=== PATIENT | female | born 1975 | race American Indian/Alaskan Native ===

== ENCOUNTER 2016-12-30 18:01 | Emergency (ER) | payer OTHER ==
[2016-12-30 18:29] VITALS: BMI 26.6
[2016-12-30 18:32] VITALS: TEMP 98.4
--- NOTE | 2016-12-30 19:17 | ED PDOC ---
Arrival/HPI - General Chief Complaint: Abnormal Skin Integrity Time Seen by Provider: 12/30/16 19:03 Historian: Patient - History of Present Illness Narrative History of Present Illness (Text): 12/31/16 00:55 41 yo F presents for a wound check to the right palm, patient states that she sustained a wound to the center of her right palm after her skin became dry, cracked and then opened up. 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 Denies any fever, chills, trauma, injury, numbness, decrease range of motion, has no other complaints. Patient is R hand dominant. Past Medical History - Provider Review Nursing Documentation Reviewed: Yes - Infectious Disease Hx of Infectious Diseases: None - Tetanus Immunization Tetanus Immunization: Up to Date - Cardiac Hx Hypertension: Yes - Gastrointestinal Hx Pancreatitis: Yes (2011) - Psychiatric Hx Substance Use: No Family/Social History - Physician Review Nursing Documentation Reviewed: Yes Family/Social History: No Known Family HX Smoking Status: Light Smoker < 10 Cigarettes Daily Hx Alcohol Use: Yes Hx Substance Use: No Allergies/Home Meds Allergies/Adverse Reactions: Allergies No Known Allergies Allergy (Verified 10/24/16 12:14) Review of Systems - Review of Systems Constitutional: Normal. absent: Fatigue, Weight Change, Fevers Musculoskeletal: Normal. absent: Arthralgias, Back Pain, Neck Pain Skin: Normal, Other (non-healing wound to the R palm). absent: Rash, Pruritis, Skin Lesions Physical Exam - Physical Exam Narrative Physical Exam (Text): 12/31/16 00:57 GENERAL APPEARANCE: Patient is awake, alert, oriented x 3, in no acute distress. SKIN: Warm, (-) rash, (-) lesions. UPPER EXTREMITY: R hand : (+) non-healing wound ~3 cm in size to the center of the palm with (-) tenderness, (-) swelling, (-) ecchymosis, ; (-) crepitus, (-) deformity. Tendon function intact. (-) distal neurovascular deficit. 2 point discrimination. Remainder of hand, digits and wrist: (-) injury. Vital Signs Temp Pulse Resp BP Pulse Ox 12/30/16 19:27 89 17 146/95 H 99 12/30/16 18:02 98.4 F 94 H 16 154/100 H 98 Medical Decision Making ED Course and Treatment: 12/31/16 00:59 41 yo F presents for a wound check to the right palm. Patient advised to keep the wound dry and covered. Given work excuse for 1 day with limited use of the R hand to allow the wound to heal. Patient advised to follow up with primary care physician or employee health in 2 days without fail for re-evaluation. Advised to take medication as prescribed to prevent infection. Return to the emergency room at any time for any new or worsening symptoms. Patient states she fully agrees with and understands discharge instructions. States that she agrees with the plan and disposition. Verbalized and repeated discharge instructions and plan. I have given the patient opportunity to ask any additional questions. - PA / MEDIA OPERATOR / Resident Statement MD/DO has reviewed & agrees with the documentation as recorded. Disposition/Present on Arrival - Present on Arrival Any Indicators Present on Arrival: No History of DVT/PE: No History of Uncontrolled Diabetes: No Urinary Catheter: No History of Decub. Ulcer: No History Surgical Site Infection Following: None - Disposition Have Diagnosis and Disposition been Completed?: Yes Diagnosis: Visit for wound check Disposition: HOME/ ROUTINE Disposition Time: 19:00 Patient Plan: Discharge Condition: STABLE Discharge Instructions (ExitCare): Acute Wound Care (ED) Print Language: SLOVAK Additional Instructions: Thank you for letting us take care of you today. You were treated for wound check to the R hand. The emergency medical care you received today was directed at your acute symptoms. If you were prescribed any medication, please fill it and take as directed. It may take several days for your symptoms to resolve. Return to the Emergency Department if your symptoms worsen, do not improve, or if you have any other problems. Please contact your doctor in 2 days for re-evaluation and follow up. Bring any paperwork you were given at discharge with you along with any medications you are taking to your follow up visit. Our treatment cannot replace ongoing medical care by a primary care provider (PCP) outside of the emergency department. Thank you for allowing the [facility] team to be part of your care today. Prescriptions: Cephalexin [Keflex] 500 mg PO Q6 #28 capsule Clotrimazole 1% Cream [Lotrimin 1%] 30 applic EXT BID #1 tube Sulfamethoxazole/Trimethoprim [Bactrim DS 800 mg-160 mg] 2 tab PO BID #28 tab Forms: [facility] (Malay), WORK NOTE
[2016-12-30 19:27] VITALS: BP 146/95; PULSE 89; RESP 17; O2SAT 99
== END 2016-12-30 19:30 | disposition home or self-care (01) ==
LOC: ED 18:01
DX: Z51.89 Encounter for other specified aftercare (principal)

== ENCOUNTER 2017-07-18 23:32 | Emergency (ER) | payer BC, OTHER ==
[2017-07-18 23:42] VITALS: BMI 26.8
[2017-07-18 23:48] VITALS: PULSE 98; RESP 18; TEMP 99.2; O2SAT 99
[2017-07-18 23:49] VITALS: BP 158/104
--- NOTE | 2017-07-19 00:35 | ED PDOC ---
Arrival/HPI - General Chief Complaint: Lower Extremity Problem/Injury Time Seen by Provider: 07/19/17 00:08 Historian: Patient - History of Present Illness Narrative History of Present Illness (Text): 07/19/17 00:26 Pt is a 41 year old female with no significant past medical history who presents with left lateral heel pain for the past 2 weeks. Pt states that she has been treated by 2 different podiatrists for pes planus and plantar fasciaitis and received a cortisone injection a few months ago. More recently, she was given a Kerasal cream by Dr. Bruce MANZANARES for callused heels which resulted in more irritation than removal of calluses. States she was told she is pre-diabetic but does not take any medications. Denies fever, chills, chest pain, shortness of breath, joint pain or swelling, loss of sensation or motor function of the lower extremity. Next podiatry appointment is July 31. Time/Duration: < week Symptom Onset: Gradual Symptom Course: Unchanged Quality: Aching, Pressure Severity Level: 3 Activities at Onset: Rest Context: Work Past Medical History - Provider Review Nursing Documentation Reviewed: Yes - Travel History Have you recently traveled outside [place] w/in the past 3 mons?: No - Past History Past History: No Previous - Infectious Disease Hx of Infectious Diseases: None - Tetanus Immunization Tetanus Immunization: Up to Date - Cardiac Hx Cardiac Disorders: Yes Hx Hypertension: Yes - Pulmonary Hx Respiratory Disorders: No - Neurological Hx Neurological Disorder: No - HEENT Hx HEENT Disorder: No - Renal Hx Renal Disorder: No - Endocrine/Metabolic Hx Endocrine Disorders: No - Hematological/Oncological Hx Blood Disorders: No - Integumentary Hx Dermatological Disorder: No - Musculoskeletal/Rheumatological Hx Musculoskeletal Disorders: No - Gastrointestinal Hx Gastrointestinal Disorders: Yes Hx Pancreatitis: Yes (2011) - Genitourinary/Gynecological Hx Genitourinary Disorders: No - Psychiatric Hx Psychophysiologic Disorder: No Hx Substance Use: No - Anesthesia Hx Anesthesia: No Family/Social History - Physician Review Nursing Documentation Reviewed: Yes Family/Social History: No Known Family HX Smoking Status: Light Smoker < 10 Cigarettes Daily Hx Alcohol Use: Yes Frequency of alcohol use: Socially Hx Substance Use: No Allergies/Home Meds Allergies/Adverse Reactions: Allergies shellfish derived Allergy (Verified 07/18/17 23:42) SHORTNESS OF BREATH Review of Systems - Physician Review All systems were reviewed & negative as marked: Yes - Review of Systems Constitutional: Fevers Eyes: Normal ENT: Normal Respiratory: Normal Cardiovascular: Normal Gastrointestinal: Normal Genitourinary Female: Normal Musculoskeletal: Normal Skin: Normal, Cellulitis (left callused heel, lateral) Neurological: Normal Endocrine: Normal Hemo/Lymphatic: Normal Psychiatric: Normal Physical Exam Vital Signs Reviewed: Yes Vital Signs Temp Pulse Resp BP Pulse Ox 07/18/17 23:47 99.2 F 98 H 18 158/104 H 99 Temperature: Afebrile Blood Pressure: Hypertensive Pulse: Regular Respiratory Rate: Normal Appearance: Positive for: Well-Appearing, Non-Toxic, Comfortable Pain Distress: Moderate Mental Status: Positive for: Alert and Oriented X 3 - Systems Exam Head: Present: Atraumatic, Normocephalic Mouth: Present: Moist Mucous Membranes Neck: Present: Normal Range of Motion Respiratory/Chest: Present: Clear to Auscultation, Good Air Exchange. No: Respiratory Distress, Accessory Muscle Use Cardiovascular: Present: Regular Rate and Rhythm, Normal S1, S2. No: Murmurs Abdomen: No: Tenderness, Distention, Peritoneal Signs Back: Present: Normal Inspection Upper Extremity: Present: Normal Inspection. No: Cyanosis, Edema Lower Extremity: Present: Normal Inspection, NORMAL PULSES, Normal ROM, Tenderness (lateral left heel pain), Neurovascularly Intact, Capillary Refill < 2 s. No: Edema, CALF TENDERNESS, Cyanosis, Lio's Sign, Erythema, Deformity, Temperature Abnormalties Neurological: Present: GCS=15, CN II-XII Intact, Speech Normal Skin: Present: Warm, Dry, Normal Color. No: Rashes Lymphatic: No: Cervical Adenopathy, Axillary Adenopathy, Inguinal Adenopathy, Other Psychiatric: Present: Alert, Oriented x 3, Normal Insight, Normal Concentration Medical Decision Making ED Course and Treatment: 07/19/17 00:35 Pt is a 41 year old female with no significant past medical history who presents with left lateral heel pain for the past 2 weeks. On exam, lateral heel is mildly erythematous and extremely sensitive to touch, no discharge with a thick callus covering the area, no surrounding edema or erythema. Plan cbc w diff Lidocaine 2% injected into heel I&D of left heel assess and dispo Progress Note pt tolerated the procedure well, no blood loss #11 blade used, 10cc saline irrigation, bacitracin, tegaderm cover and light wrap Advised pt to f/u with podiatry in next 48 hrs or less Clindamycin 300 mg q6 x 7days Ibuprofen 600 mg for pain Note for work VSS and pt ambulated well out of the ED - Lab Interpretations Lab Results: 07/19/17 00:55 Lab Results 07/19/17 00:55: WBC 6.0, RBC 5.32, Hgb 17.6 H, Hct 49.2 H, MCV 92.5, MCH 33.1, MCHC 35.8, RDW 12.7, Plt Count 171, MPV 9.9, Gran % 60.4, Lymph % (Auto) 27.9, [place] % (Auto) 10.9 H, Eos % (Auto) 0.5 L, Baso % (Auto) 0.3, Gran # 3.64, Lymph # (Auto) 1.7, [place] # (Auto) 0.7 H, Eos # (Auto) 0.0, Baso # (Auto) 0.02 I have reviewed the lab results: Yes Interpretation: All labs normal - Medication Orders Current Medication Orders: Discontinued Medications Clindamycin HCl (Cleocin) 150 mg PO STAT STA PRN Reason: Protocol Stop: 07/19/17 01:26 Ketorolac Tromethamine (Toradol) 15 mg IM STAT STA Stop: 07/19/17 00:42 Last Admin: 07/19/17 01:19 Dose: 15 mg MAR Pain Assessment Document 07/19/17 01:19 JOMelanie (Rec: 07/19/17 01:19 JO [id number]) Pain Reassessment Is this a pain reassessment? No Sleep Is patient sleeping during reassessment? No Presence of Pain Presence of Pain Yes Pain Scale Used Pain Scale Used Numeric Location Left, Right or Bilateral Left Pain Location Body Site Foot Description Intensity of Pain at present 6 Pain Behavior Guarding Restlessness Facial Grimacing Aggravating Factors ADL's Walking IM Administration Charges Document 07/19/17 01:19 JOL (Rec: 07/19/17 01:19 JO [id number]) Injection Site MAR Injection Site Left Deltoid Charges for Administration # of IM Administrations 1 - Procedure PROCEDURE NOTE (Text): 07/19/17 02:08 I&D Note Indication: Abscess Location: Left lateral heel pad Preparation: The area was prepped and draped in the usual sterile fashion and was cleansed with chlorhexidine.~ Local infiltration of Lidocaine 2% was used for anesthesia.~ Procedure: ~The most fluctuant portion of the abscess was incised with a #11 scalpel. ~ Approximately 2 mL of thick white matter was obtained.~ The abscess was treated with Bacitracin and light dressing applied. ~ Post-Procedure: ~On exam the abscess is notably less fluctuant and patient able to put weight into the heel again. The patient tolerated the procedure well, and there were no complications. Cultured: Yes Disposition/Present on Arrival - Present on Arrival Any Indicators Present on Arrival: Yes History of DVT/PE: No History of Uncontrolled Diabetes: No Urinary Catheter: No History of Decub. Ulcer: No History Surgical Site Infection Following: None - Disposition Have Diagnosis and Disposition been Completed?: Yes Diagnosis: Abscess, Foot pain, left Disposition: HOME/ ROUTINE Disposition Time: 01:33 Patient Plan: Discharge Condition: GOOD Discharge Instructions (ExitCare): Skin Abscess, Abscess Incision and Drainage (DC) Additional Instructions: Lisset, Please take the medication as directed and follow up with your reworker in the next 24-48 hrs. If you experience a high fever or increase in pain, return to the emergency department for evaluation. All the best in your recovery, [facility] Dejesus Prescriptions: Clindamycin [Cleocin] 300 mg PO Q8 7 Days #21 cap Ibuprofen [Motrin Tab] 600 mg PO Q6 PRN 5 Days #20 tab PRN Reason: pain/fever Forms: [facility] (Persian), WORK NOTE
[2017-07-19 01:14] LABS: BASO # 0.02 K/mm3 (0.0-2.0); BASO % 0.3 % (0.0-3.0); EOS % 0.5 % (1.5-5.0); GRAN # 3.64 (1.4-6.5); GRAN % 60.4 % (50.0-68.0); HEMOGLOBIN 17.6 g/dL (12.0-16.0); LYMPH # 1.7 (1.2-3.4); LYMPH % 27.9 % (22.0-35.0); MEAN CELL VOLUME 92.5 fl (80.0-105.0); MEAN CORPUSCULAR HEMOGLOBIN 33.1 pg (25.0-35.0); MEAN CORPUSCULAR HGB CONC 35.8 g/dl (31.0-37.0); MEAN PLATELET VOLUME 9.9 fl (7.0-11.0); MONO # 0.7 (0.1-0.6); MONO % 10.9 % (1.0-6.0); RBC 5.32 10^6/uL (3.5-6.1); RED CELL DISTRIBUTION WIDTH 12.7 % (11.5-14.5)
[2017-07-19] MEDS ORDERED: Bacitracin 500 Units/gm Oint Foilpak UD ONE (01:14)
== END 2017-07-19 01:53 | disposition home or self-care (01) ==
LOC: ED 23:32
DX: M79.672 Pain in left foot (principal); L02.612 Cutaneous abscess of left foot; I10 Essential (primary) hypertension; F17.210 Nicotine dependence, cigarettes, uncomplicated
CPT/HCPCS: 10060; 85025; 87070; 87181; 96372; 99284; J1885

== ENCOUNTER 2017-10-10 06:15 | Inpatient (IN) | payer OTHER ==
[2017-10-10] MEDS ORDERED: Lidocaine 2% Inj (20ml) ONE (06:55)
[2017-10-10] MEDS ORDERED: Nitroglycerin 50mg in D5W 50 MG/250 ML BOTTLE IV ONE (06:55)
[2017-10-10] MEDS ORDERED: Iodixanol 320 MG/ML 200 ML BOTTLE IV ONE (06:55)
[2017-10-10 06:57] VITALS: O2SAT 99
[2017-10-10] MEDS ORDERED: Iodixanol 320 MG/ML 100 ML BOTTLE IV ONE ×2 (06:58→07:40)
[2017-10-10] MEDS ORDERED: Midazolam 2 MG/2 ML VIAL ONE (07:42)
[2017-10-10] MEDS ORDERED: Propofol 10 mg/ml Inj (20 ML) ONE (07:42)
[2017-10-10] MEDS ORDERED: DiphenhydrAMINE 50 mg/ml Inj ONE (08:33)
[2017-10-10] MEDS ORDERED: Phenylephrine 10 mg/ml Inj ONE (08:54)
[2017-10-10] MEDS ORDERED: Morphine 2 mg/ml ISec IVP PRN (10:31)
--- NOTE | 2017-10-10 10:31 | PCM.SURG1 ---
Surgeon's Initial Post Op Note - Surgeon's Notes Surgeon: Dr. Reymundo Garcia Folded Cloth Taper: Tez PGY1 Type of Anesthesia: General LMA Anesthesia Administered By: Dr. Reid Pre-Operative Diagnosis: Aortoilliac occlusive disease Operative Findings: Aortoilliac occlusive disease Post-Operative Diagnosis: Aortoilliac occlusive disease Operation Performed: EVAR, balloon angioplasty of aorta and illiacs bilaterally Specimen/Specimens Removed: None Estimated Blood Loss: EBL {In ML}: 75 Blood Products Given: N/A Drains Used: No Drains Post-Op Condition: Fair Date of Surgery/Procedure: 10/10/17 Time of Surgery/Procedure: 10:31
[2017-10-10] MEDS ORDERED: HYDROmorphone 0.5 mg/0.5 ml ISec IVP PRN (10:33)
[2017-10-10] MEDS ORDERED: Sodium Chloride 0.9% 1,000 ML IV SCH (10:45)
[2017-10-10] MEDS ORDERED: Sodium Chloride 0.45% 1,000 ML IV SCH (10:45)
[2017-10-10] MEDS ORDERED: Nitroglycerin 2% Ointment Foilpak UD TOP PRN (10:59)
[2017-10-10] MEDS: Sodium Chloride 0.45% 1,000 ML IV SCH (11:45)
--- NOTE | 2017-10-10 11:46 | CP.PCM.CON ---
<James Chatterjee - Last Filed: 10/10/17 12:01> History of Present Illness - History of Present Illness History of Present Illness: ICU Consult Note: Dr. Mejía Reason For Consult: ICU Monitoring post op HPI: 42 year old female with pertinent medical history of HTN and Aorto- occlusive disease initially presented with claudication symptoms. Lower Extremity MRA on last admission revealed bilateral proximal SERGIO, distal L SFA, and distal aortic critical stenosis. Patient was scheduled for same day surgery performed by Dr. Sanches. On my interview, patient is resting in bed with no complaints at current time besides saying that her nasal cannula is bothering her nose. Patient denies any pain at the surgical site. Review of Systems: 12 point ROS obtained and negative except as per HPI Surgical History: Denies Medical History: HTN, Pancreatitis, Aorto-occlusive disease, Chronic foot ulcers Allergies: Latex, shellfish Social History: 1/2 pack cigarettes; 6 pack of beer a day; Past use of marijuana, but denies current use Home Meds: Metformin, Ultram Family History: Aorto-occlusive disease Past Patient History - Infectious Disease Hx of Infectious Diseases: None - Tetanus Immunizations Tetanus Immunization: Up to Date - Past Medical History & Family History Past Medical History?: Yes - Past Social History Smoking Status: Heavy Smoker > 10 Cigarettes Daily - CARDIAC Hx Pacemaker: No - PULMONARY Hx Respiratory Disorders: No - NEUROLOGICAL Hx Paralysis: No - HEENT Hx HEENT Problems: No - RENAL Hx Chronic Kidney Disease: No - ENDOCRINE/METABOLIC Hx Endocrine Disorders: No - HEMATOLOGICAL/ONCOLOGICAL Hx Blood Transfusions: No - INTEGUMENTARY Hx Dermatological Problems: No - MUSCULOSKELETAL/RHEUMATOLOGICAL Hx Musculoskeletal Disorders: No - GASTROINTESTINAL Hx Gastrointestinal Disorders: Yes Hx Pancreatitis: Yes (2011) - GENITOURINARY/GYNECOLOGICAL Hx Genitourinary Disorders: No - PSYCHIATRIC Hx Emotional Abuse: No Hx Physical Abuse: No Hx Substance Use: No - SURGICAL HISTORY Hx Surgeries: No - ANESTHESIA Hx Anesthesia Reactions: No Hx Malignant Hyperthermia: No Meds Allergies/Adverse Reactions: Allergies Allergy/AdvReac Type Severity Reaction Status Date / Time latex Allergy Severe RASH Verified 10/05/17 08:01 shellfish derived Allergy Severe SHORTNESS Verified 10/05/17 08:01 OF BREATH - Medications Medications: Current Medications Apixaban (Eliquis) 5 mg PO BID HECTOR PRN Reason: Protocol Docusate Sodium (Colace) 100 mg PO BID PRN PRN Reason: Constipation Folic Acid (Folic Acid) 1 mg PO DAILY [facility] Hydromorphone HCl (Dilaudid) 0.5 mg IVP Q15M PRN PRN Reason: Pain, moderate (4-7) Stop: 10/10/17 12:33 Sodium Chloride (Sodium Chloride 0.9%) 1,000 mls @ 75 mls/hr IV .[id number] [facility] Stop: 10/10/17 12:46 Sodium Chloride (Sodium Chloride 0.45%) 1,000 mls @ 80 mls/hr IV .[id number] [facility] Stop: 10/11/17 08:00 Insulin Human Lispro (Humalog Low) 0 units SC ACHS HECTOR PRN Reason: Protocol Metformin HCl (Glucophage) 500 mg PO BID [facility] Morphine Sulfate (Morphine) 2 mg IVP Q4H PRN PRN Reason: Pain, severe (8-10) Multivitamins/Minerals (Therapeutic-M Tab) 1 tab PO 0800 [facility] Nitroglycerin (Nitro-Bid 2% Oint) 1 ea TOP Q6H PRN PRN Reason: Systolic Blood Pressure Ondansetron HCl (Zofran Inj) 4 mg IVP Q6H PRN PRN Reason: Nausea/Vomiting Oxycodone/Acetaminophen (Percocet 5/325 Mg Tab) 1 tab PO Q4H PRN PRN Reason: Pain, moderate (4-7) Stop: 10/13/17 10:32 Pantoprazole Sodium (Protonix Ec Tab) 40 mg PO DAILY [facility] Thiamine HCl (Vitamin B1 Tab) 100 mg PO DAILY [facility] Physical Exam - Constitutional Appears: Well - Head Exam Head Exam: ATRAUMATIC, NORMAL INSPECTION, NORMOCEPHALIC - Eye Exam Eye Exam: EOMI, Normal appearance, PERRL Pupil Exam: NORMAL ACCOMODATION, PERRL - ENT Exam ENT Exam: Mucous Membranes Moist, Normal Exam - Neck Exam Neck exam: Positive for: Normal Inspection - Respiratory Exam Respiratory Exam: Clear to Auscultation Bilateral, NORMAL BREATHING PATTERN - Cardiovascular Exam Cardiovascular Exam: REGULAR RHYTHM - GI/Abdominal Exam GI & Abdominal Exam: Normal Bowel Sounds, Soft. absent: Tenderness - Extremities Exam Extremities exam: Positive for: normal inspection - Back Exam Back exam: NORMAL INSPECTION - Neurological Exam Neurological exam: Alert, CN II-XII Intact, Normal Gait, Oriented x3, Reflexes Normal - Psychiatric Exam Psychiatric exam: Normal Affect, Normal Mood - Skin Skin Exam: Dry, Intact, Normal Color, Warm - Additional Findings Additional findings: Wound site is c/d/i Results - Vital Signs Recent Vital Signs: Last Vital Signs Temp 98.0 F 10/10/17 10:30 Pulse 85 10/10/17 10:30 Resp 16 10/10/17 10:30 BP 164/86 H 10/10/17 10:30 Pulse Ox 99 10/10/17 06:25 - Labs Labs: Laboratory Results - last 24 hr 10/10/17 06:54 Blood Type A POSITIVE Antibody Screen Negative BBK History Checked Patient has bt Assessment & Plan - Assessment and Plan (Free Text) Assessment: 42 year old female under ICU management for monitoring s/p Balloon Angioplasty and EVAR of bilateral LE SERGIO HTN Aortic Occlusive Disease/PAD Recurrent Pancreatitis Elevated Hgb Alcohol Abuse Tobacco Abuse Plan Neurological - Neurochecks q4 for recent surgery and alcohol withdrawal; Aspiration, Seizure , CIWA - MVi, Thiamine, Folic acid PO - Maintain normothermia Cardiovascular - S/p surgery, make sure dressings are c/d/i - Maintain MAP > 65 Pulm - Maintain oxygenation > 92% - Patient uncomfortable with NC, can use PRN GI - Protonix PPX - HHD - Maintain Euvolemia - Monitor electrolytes, replete PRN Heme - Outpatient follow up of elevated Hgb - Eliquis tmrw for DVT PPX ID - No current ID issues Endo - RISS + Accuchecks, hold metformin F/u repeat labs post op <Ernst Mejía - Last Filed: 10/10/17 13:15> Meds - Medications Medications: Current Medications Apixaban (Eliquis) 5 mg PO BID [facility] PRN Reason: Protocol Docusate Sodium (Colace) 100 mg PO BID PRN PRN Reason: Constipation Folic Acid (Folic Acid) 1 mg PO DAILY [facility] Sodium Chloride (Sodium Chloride 0.45%) 1,000 mls @ 80 mls/hr IV .[id number] [facility] Stop: 10/11/17 08:00 Insulin Human Lispro (Humalog Low) 0 units SC ACHS HECTOR PRN Reason: Protocol Lorazepam (Ativan) 2 mg IVP Q4H PRN; Protocol PRN Reason: Symptoms of alcohol withdrawl Metformin HCl (Glucophage) 500 mg PO BID [facility] Morphine Sulfate (Morphine) 2 mg IVP Q4H PRN PRN Reason: Pain, severe (8-10) Multivitamins/Minerals (Therapeutic-M Tab) 1 tab PO 0800 [facility] Nitroglycerin (Nitro-Bid 2% Oint) 1 ea TOP Q6H PRN PRN Reason: Systolic Blood Pressure Ondansetron HCl (Zofran Inj) 4 mg IVP Q6H PRN PRN Reason: Nausea/Vomiting Oxycodone/Acetaminophen (Percocet 5/325 Mg Tab) 1 tab PO Q4H PRN PRN Reason: Pain, moderate (4-7) Stop: 10/13/17 10:32 Pantoprazole Sodium (Protonix Ec Tab) 40 mg PO DAILY [facility] Thiamine HCl (Vitamin B1 Tab) 100 mg PO DAILY [facility] Results - Vital Signs Recent Vital Signs: Last Vital Signs Temp 98.0 F 10/10/17 11:15 Pulse 78 10/10/17 11:15 Resp 16 10/10/17 11:15 BP 158/72 H 10/10/17 11:15 Pulse Ox 99 10/10/17 06:25 - Labs Result Diagrams: 10/10/17 12:40 Labs: Laboratory Results - last 24 hr 10/10/17 10/10/17 06:54 12:40 WBC 6.4 RBC 5.26 Hgb 17.4 H Hct 50.7 H MCV 96.4 MCH 33.1 MCHC 34.3 RDW 14.0 Plt Count 105 L MPV 9.9 Gran % 61.2 Lymph % (Auto) 28.2 [place] % (Auto) 9.9 H Eos % (Auto) 0.5 L Baso % (Auto) 0.2 Gran # 3.89 Lymph # (Auto) 1.8 [place] # (Auto) 0.6 Eos # (Auto) 0.0 Baso # (Auto) 0.01 Blood Type A POSITIVE Antibody Screen Negative BBK History Checked Patient has bt Attending/Attestation - Attestation I have personally seen and examined this patient.: Yes I have fully participated in the care of the patient.: Yes I have reviewed all pertinent clinical information: Yes Notes (Text): 10/10/17 13:08 The patient was seen and examined at the bedside. Patient care was discussed with resident Dr.Sen Medical records, lab studies, and imaging were reviewed and management issues were discussed and formulated. Agree with above treatment plans as outlined in 's note with addition of the following: Peripheral arterial disease \ HTN \ DM 2 \ ETOH abuse -hemodynamic monitoring to maintain MAP>65 -o2 supplementation to maintain Spo2>90 Pao2>60; currently comfortable on NC -f\u Bun\Cr and U\o -IR team f\u post-op -PO diet and aspiration precautions -ISS and BGM monitoring -continue Thiamine, folic acid and MVI; monitor for ETOH withdrawal -continue anticoagulation with apixaban and monito for bleed -consider Heme\onc eval for Polycythemia -continue LE pulse \ neuro checks as per protocol -DVT \ PUD prophylaxis CCM time 27min
--- NOTE | 2017-10-10 12:00 | CP.PCM.HP ---
Addendum entered and electronically signed by Alayna Fisher DO 10/10/17 16:27 : increased rate of 1/2 NS fluids as patient appears to have be volume contracted. Kayexelate 30 PO administered for Hyperkalemia. Hydralazine added 10 mg q6h PRN for SBP greater than 160 mmHg. Magnesium low, repleted with 1 g IV. Original Note: <Alayna Fisher - Last Filed: 10/10/17 14:49> History of Present Illness - History of Present Illness History of Present Illness: 42 year old female with a past medical history of untreated hypertension, DM II , alcohol abuse, and tobacco use who presented [place] [facility] elective angioplasty of the . She reports having symptoms of claudication in the bilateral lower extremities for the past ten years. She never sought medical attention until she developed a non-healing ulcer of the left lateral heel. She underwent an MRI of the lower extremities and abdomen with and without contrast that showed severe stenosis of the distal abdominal aorta and bilateral common illiac arteries along with distal left SFA occlusion at the the junction with the popliteal. She saw interventional radiologist Dr. Richie Sanches and underwent EVAR, balloon angioplasty of aorta and illiacs bilaterally. She is unable to quantify the amount time it takes for her to walk before she develops the pain in her legs. She denies any nausea, vomiting, diaphoresis, headache, easy bruising or bleeding. History is significant for untreated DM II, tobacco use with an estimated 20 pack year history, and excessive alcoohol use. PMH: Alcoholic pancreatitis, untreated DM II (she is going to be starting Metformin), alcohol and tobacco abuse. Past Surgical History: Left heel repair Allergies: Latex, seafood, and peanut butter Social History: Works as a Certified Nurse Job Cost Estimator, single, estimated 18 pack year history of smoking, 6 pack of beer a day; denies illicit drug use PMD: Dr. Herbert Present on Admission - Present on Admission Any Indicators Present on Admission: No Review of Systems - Review of Systems All systems: reviewed and no additional remarkable complaints except (as per HPI ) Past Patient History - Infectious Disease Hx of Infectious Diseases: None - Tetanus Immunizations Tetanus Immunization: Up to Date - Past Medical History & Family History Past Medical History?: Yes - Past Social History Smoking Status: Heavy Smoker > 10 Cigarettes Daily - CARDIAC Hx Pacemaker: No - PULMONARY Hx Respiratory Disorders: No - NEUROLOGICAL Hx Paralysis: No - HEENT Hx HEENT Problems: No - RENAL Hx Chronic Kidney Disease: No - ENDOCRINE/METABOLIC Hx Endocrine Disorders: No - HEMATOLOGICAL/ONCOLOGICAL Hx Blood Transfusions: No - INTEGUMENTARY Hx Dermatological Problems: No - MUSCULOSKELETAL/RHEUMATOLOGICAL Hx Musculoskeletal Disorders: No - GASTROINTESTINAL Hx Gastrointestinal Disorders: Yes Hx Pancreatitis: Yes (2011) - GENITOURINARY/GYNECOLOGICAL Hx Genitourinary Disorders: No - PSYCHIATRIC Hx Emotional Abuse: No Hx Physical Abuse: No Hx Substance Use: No - SURGICAL HISTORY Hx Surgeries: No - ANESTHESIA Hx Anesthesia Reactions: No Hx Malignant Hyperthermia: No Meds Home Medications: Home Medication List Medication Instructions Recorded Confirmed Type Apixaban [Eliquis] 5 mg PO BID #60 tablet 10/11/17 Rx Aspirin [Adult Aspirin] 81 mg PO DAILY #30 tablet. 10/11/17 Rx Atorvastatin [Lipitor] 40 mg PO HS #30 tab 10/11/17 Rx Metoprolol Tartrate 25 mg PO BID #60 tablet 10/11/17 Rx oxyCODONE/Acetaminophen [Percocet 1 ea PO Q12H #5 tab 10/11/17 Rx 5/325 mg Tab] Allergies/Adverse Reactions: Allergies Allergy/AdvReac Type Severity Reaction Status Date / Time latex Allergy Severe RASH Verified 10/05/17 08:01 shellfish derived Allergy Severe SHORTNESS Verified 10/05/17 08:01 OF BREATH Physical Exam - Constitutional Appears: Non-toxic, No Acute Distress - Head Exam Head Exam: ATRAUMATIC, NORMOCEPHALIC - Eye Exam Eye Exam: EOMI, Normal appearance - ENT Exam ENT Exam: Mucous Membranes Moist, Normal Oropharynx - Neck Exam Neck exam: Positive for: Normal Inspection - Respiratory Exam Respiratory Exam: Clear to Auscultation Bilateral, NORMAL BREATHING PATTERN. absent: Accessory Muscle Use - Cardiovascular Exam Cardiovascular Exam: RRR, +S1, +S2 - GI/Abdominal Exam GI & Abdominal Exam: Normal Bowel Sounds, Soft. absent: Guarding - Extremities Exam Extremities exam: Positive for: normal inspection. Negative for: calf tenderness Additional comments: dorsalis pedis and posterior tibial pulses graded 2/4 bilaterally - Neurological Exam Neurological exam: Alert, CN II-XII Intact, Oriented x3 - Psychiatric Exam Psychiatric exam: Normal Affect, Normal Mood - Skin Skin Exam: Dry, Intact, Normal Color, Warm Results - Vital Signs Recent Vital Signs: Last Vital Signs Temp 98.0 F 10/10/17 10:30 Pulse 85 10/10/17 10:30 Resp 16 10/10/17 10:30 BP 164/86 H 10/10/17 10:30 Pulse Ox 99 10/10/17 06:25 - Labs Result Diagrams: 10/10/17 12:40 10/10/17 12:40 Labs: Laboratory Results - last 24 hr 10/10/17 06:54 Blood Type A POSITIVE Antibody Screen Negative BBK History Checked Patient has bt Assessment & Plan - Assessment and Plan (Free Text) Assessment: 42 year old female with a past medical history of pancreatitis, untreated DM II , tobacco and alcohol use who is status post EVAR, balloon angioplasty of aorta and illiacs bilaterally. 1) PAD, aortoilliac disease with non-healing ulcer s/p EVAR, baloon angioplasty - Monitor in the ICU per post-angioplasty protocol - Eliquis 5 mg BID - NG ointment q6h PRN - Zofran 4mg q6h PRN - NS at 80 mls/hr - Percocet 5/325 for moderate pain - Morphine 2 mg q4h PRN 2) DM II - Metformin 500 mg BID - ISS lispro (low) ACHS - last hgbA1c was 8.7 3) Alcohol Withdrawal precautions - Alcohol Withdrawal symptoms - Multivitamin, Folic Acid, Thiamine - Lorazepam 2 mg q4h PRN for alcohol withdrawal symptoms - Counselled patient on abstaining from alcohol, will reinforce through-out her stay 4) Smoking cessation - Patient smokes 1/2 pack a day and thus should be kept on a 14 mg patch - Counselled the patient that she can in fact quit: encouraged her to take up walking once she is cleared by Dr. Sanches 5) DVT/GI Prophylaxis - NOAC starting tomorrow in the AM - Protonix 40 mg PO daily Upon discharge patient is to follow up with PMD Dr. Herbert Case reviewed and discussed with attending physician, Dr. Carbajal - Date & Time Date: 10/10/17 Time: 14:32 <Clarence Barry - Last Filed: 10/11/17 15:26> Results - Vital Signs Recent Vital Signs: Last Vital Signs Temp 98.2 F 10/11/17 04:00 Pulse 74 10/11/17 00:00 Resp 12 10/10/17 18:44 BP 173/85 H 10/11/17 00:00 Pulse Ox 99 10/10/17 06:25 - Labs Result Diagrams: 10/11/17 06:50 10/11/17 06:50 Labs: Laboratory Results - last 24 hr 10/10/17 10/10/17 10/10/17 06:30 17:04 19:29 WBC RBC Hgb Hct MCV MCH MCHC RDW Plt Count MPV Gran % Lymph % (Auto) [place] % (Auto) Eos % (Auto) Baso % (Auto) Gran # Lymph # (Auto) [place] # (Auto) Eos # (Auto) Baso # (Auto) PT INR APTT Sodium 135 Potassium 4.0 Chloride 104 Carbon Dioxide 22 Anion Gap 13 BUN 5 L Creatinine 0.7 Est GFR ( Amer) > 60 Est GFR (Non-Af Amer) > 60 POC Glucose (mg/dL) 104 Random Glucose 125 H Calcium 8.2 L Phosphorus Magnesium Total Bilirubin AST ALT Alkaline Phosphatase Total Protein Albumin Globulin Albumin/Globulin Ratio Urine HCG, Qual Negative 10/10/17 10/11/17 10/11/17 21:42 06:50 06:50 WBC 9.2 D RBC 4.88 Hgb 16.2 H Hct 45.7 MCV 93.6 MCH 33.2 MCHC 35.4 RDW 13.6 Plt Count 118 L MPV 9.8 Gran % 83.9 H Lymph % (Auto) 8.9 L [place] % (Auto) 7.1 H Eos % (Auto) 0.0 L Baso % (Auto) 0.1 Gran # 7.75 H Lymph # (Auto) 0.8 L [place] # (Auto) 0.7 H Eos # (Auto) 0.0 Baso # (Auto) 0.01 PT 13.0 H INR 1.13 H APTT 30.5 Sodium Potassium Chloride Carbon Dioxide Anion Gap BUN Creatinine Est GFR ( Amer) Est GFR (Non-Af Amer) POC Glucose (mg/dL) 143 H Random Glucose Calcium Phosphorus Magnesium Total Bilirubin AST ALT Alkaline Phosphatase Total Protein Albumin Globulin Albumin/Globulin Ratio Urine HCG, Qual 10/11/17 10/11/17 06:50 07:43 WBC RBC Hgb Hct MCV MCH MCHC RDW Plt Count MPV Gran % Lymph % (Auto) [place] % (Auto) Eos % (Auto) Baso % (Auto) Gran # Lymph # (Auto) [place] # (Auto) Eos # (Auto) Baso # (Auto) PT INR APTT Sodium 133 Potassium 3.7 Chloride 102 Carbon Dioxide 22 Anion Gap 13 BUN 4 L Creatinine 0.7 Est GFR ( Amer) > 60 Est GFR (Non-Af Amer) > 60 POC Glucose (mg/dL) 107 Random Glucose 114 H Calcium 8.0 L Phosphorus 3.6 Magnesium 1.4 L Total Bilirubin 1.0 AST 41 H ALT 30 Alkaline Phosphatase 74 Total Protein 6.6 Albumin 3.2 Globulin 3.4 Albumin/Globulin Ratio 1.0 L Urine HCG, Qual Attending/Attestation - Attestation I have personally seen and examined this patient.: Yes I have fully participated in the care of the patient.: Yes I have reviewed all pertinent clinical information: Yes Notes (Text): 10/11/17 15:10 Attending note: Patient seen and examined with resident. Patient is a 42 year old female with a past medical history of untreated hypertension, DM II, alcohol abuse, and tobacco use who presented to [facility] an elective percutaneous insertion of aorto iliac prosthesis. Case discussed with Dr. Sanches in detail. Patient is started on aspirin and eliquis. Active smoking; smoking cessation is strongly advised. Active alcohol abuse; alcohol cessation is strongly advised. Repeat lab work. Elevated hemoglobin since 2017. 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 Needs outpatient hematology workup to rule out other causes. Monitor in ICU. Monitor peripheral pulses. Patient also needs outpatient cardiology evaluation. Upon discharge the patient will follow-up with PMD .
[2017-10-10 12:48] LABS: BASO # 0.01 K/mm3 (0.0-2.0); BASO % 0.2 % (0.0-3.0); EOS % 0.5 % (1.5-5.0); GRAN # 3.89 (1.4-6.5); GRAN % 61.2 % (50.0-68.0); HEMOGLOBIN 17.4 g/dL (12.0-16.0); LYMPH # 1.8 (1.2-3.4); LYMPH % 28.2 % (22.0-35.0); MEAN CELL VOLUME 96.4 fl (80.0-105.0); MEAN CORPUSCULAR HEMOGLOBIN 33.1 pg (25.0-35.0); MEAN CORPUSCULAR HGB CONC 34.3 g/dl (31.0-37.0); MEAN PLATELET VOLUME 9.9 fl (7.0-11.0); MONO # 0.6 (0.1-0.6); MONO % 9.9 % (1.0-6.0); RBC 5.26 10^6/uL (3.5-6.1); WHITE BLOOD COUNT 6.4 10^3/ul (4.5-11.0)
[2017-10-10 13:22] LABS: ALBUMIN 3.4 g/dL (3.0-4.8); ALT/SGPT 31 U/L (7-56); AST/SGOT 45 U/L (14-36); BLOOD UREA NITROGEN 4 mg/dL (7-21); CALCIUM 8.2 mg/dL (8.4-10.5); GFR NON-AFRICAN AMERICAN > 60
[2017-10-10] MEDS ORDERED: Sod Polystyrene Sulf 15 gm/60 ml Susp PO ONE (14:24)
[2017-10-10] MEDS: Insulin Lispro (humaLOG) LOW Coverage SC SCH ×3 (15:37→22:00)
[2017-10-10] MEDS ORDERED: Magnesium Sulfate 1 gm in D5W 1 GM/100 ML BAG IVPB ONE (15:38)
--- NOTE | 2017-10-10 17:11 | VASCULAR ---
PROCEDURE: AAA stent graft repair HISTORY: Diffuse calcified infrarenal aortic disease with aneurysmal dilatation and lower extremity ischemia. Abdominal aortic aneurysm. Ischemic fissure left heel. Needs stent graft repair. PHYSICIAN(S): Richie Sanches MD. Raven Dwyer MD TECHNIQUE: he relative risks and indications for the procedure were explained to the patient and informed written consent obtained. The patient was placed supine on the arteriography table and the abdomen and groins prepped and draped in the usual sterile fashion. Induction of general anesthesia was performed. Two perclose devices were pre deployed at the right groin puncture site. The left groin was puncture percutaneously and a 9 Fr. sheath placed. Bilateral 0.035 support wires were placed. The calcified infrarenal disease and aortic bifurcation stenosis was dilated with kissing 7 mm balloons. The 17 [employer] main body sheath was placed on the right. A 9 Chinese 25 cm sheath was placed on the left The 30 mm snare was placed on the left in the abdominal aorta near the renal arteries. A 22 -90 - 16-30 bifurcated main body was placed on the right wire. The contralateral wire was snared from the left. The main body was advanced into the abdominal aorta and the sheath removed. The stent graft was firmly seated on the aortic bifurcation. The graft was deployed without difficulty. Next kissing dilatation of the graft aortic bifurcation was performed with 8 mm balloons. In addition a 14 mm balloon was used to dilate the residual narrowing in the proximal stent graft. Completion angiograms were obtained. The sheaths were removed and hemostasis obtained with the pre deployed Perclose devices. The patient tolerated the procedure well. IMPRESSION: 1) AAA bifurcated stent graft placement as described above
[2017-10-10 19:02] VITALS: RESP 12; BMI 25.2
[2017-10-10] MEDS ORDERED: Pneumococcal 23-Valent Vaccine IM ONE (19:02)
[2017-10-10 19:56] LABS: BLOOD UREA NITROGEN 5 mg/dL (7-21); GFR NON-AFRICAN AMERICAN > 60
[2017-10-10 19:57] LABS: CALCIUM 8.2 mg/dL (8.4-10.5)
--- NOTE | 2017-10-10 21:40 | OP ---
PROCEDURE DATE: 10/10/2017 PREOPERATIVE DIAGNOSIS: Abdominal aortic aneurysm with aortoiliac occlusive disease. POSTOPERATIVE DIAGNOSIS: Abdominal aortic aneurysm with aortoiliac occlusive disease. PROCEDURE: Percutaneous insertion of the Endologix aorto bi-iliac prosthesis, JALIL 22-90/I16-30. SURGEON: Raven Dwyer MD. CO-SURGEON: Dr. Richie Sanches. TYPE OF ANESTHESIA: General. DESCRIPTION OF PROCEDURE: The patient was brought to the cardiac chemical lab supervisor and placed supine on the cardiac cath table. After adequate general anesthesia has been accomplished, her lower abdomen and both groin were prepped with Chloraprep and draped out as a sterile field. The right groin was accessed first under ultrasound guidance using a micropuncture kit. The puncture was performed just cephalad to femoral bifurcation and the micro guidewire was passed into the iliac artery and exchanged for an 0.035 glidewire, 2 Perclose were then deployed at 10:00 p.m. and 02:00 a.m. After that, the guidewire was passed into the thoracic aorta and exchanged with a Lunderquist guidewire. The left side was accessed in a similar fashion and the glidewire was passed into the aortic arch and exchanged with a Lunderquist wire. A 7 [place]uran sheath was passed, a single Perclose was deployed at the site and a #7 [place] sheath was passed into the iliac artery. Using a pigtail catheter that was placed in the suprarenal aorta, aortogram was performed showing the level of the renal artery to be at the L1 in the vertebral space and the aortic bifurcation to be at the L4-L5 intravertebral space. The Endologix LILIANE 22-90/I16-30 AFX2 bifurcated device was loaded onto the Lunderquist wire on the right side and advanced through the 19 F OD AFX introducer sheath until the distal limbs were above the aortic bifurcation. The contralateral wire was snared and pulled down the left leg. The entire system was pulled down on the aortic bifurcation. The main body of the graft was deployed by pulling on the control handle. The contralateral limb was deployed by pulling the yellow limb cover, then advancing a pigtail catheter over the contralateral wire until the tip was in contact with the wire lock. The pigtail catheter was held in place and pulled on the contralateral wire to release it from the wire lock. The ipsilateral limb was deployed by pinning the inner core and retracting the AFX introducer sheath. The graft was then ballooned with 8 x 80 balloon in a kissing fashion, the aortic portion was ballooned by 14 x 40 mm balloon. Completion aortogram showed good result with no hemodynamically significant stenosis throughout the aortic bifurcation. The femoral sheath was removed and the previously deployed Perclose was secured, there was no bleeding. All this was performed with the patient heparinized systemically. There is no groin bleeding and there were palpable femoral pulses bilaterally. There were Doppler signal in both feet. The patient was extubated and brought to the Recovery Room in stable condition. Raven Dwyer MD MTDD
[2017-10-10] MEDS: Oxycodone/Acetaminophen 5/325 mg Tab PO PRN (21:58)
--- NOTE | 2017-10-10 22:44 | CARD ---
APPROVED REPORT EKG Measurement Heart [id number] <Conclusion> Normal sinus rhythm Normal ECG
[2017-10-11 00:46] VITALS: BP 173/85
[2017-10-11 06:13] VITALS: TEMP 98.2
[2017-10-11 07:10] LABS: BASO # 0.01 K/mm3 (0.0-2.0); BASO % 0.1 % (0.0-3.0); GRAN # 7.75 (1.4-6.5); GRAN % 83.9 % (50.0-68.0); HEMOGLOBIN 16.2 g/dL (12.0-16.0); LYMPH # 0.8 (1.2-3.4); LYMPH % 8.9 % (22.0-35.0); MEAN CELL VOLUME 93.6 fl (80.0-105.0); MEAN CORPUSCULAR HEMOGLOBIN 33.2 pg (25.0-35.0); MEAN CORPUSCULAR HGB CONC 35.4 g/dl (31.0-37.0); MEAN PLATELET VOLUME 9.8 fl (7.0-11.0); MONO # 0.7 (0.1-0.6); MONO % 7.1 % (1.0-6.0); RBC 4.88 10^6/uL (3.5-6.1); RED CELL DISTRIBUTION WIDTH 13.6 % (11.5-14.5); WHITE BLOOD COUNT 9.2 10^3/ul (4.5-11.0)
[2017-10-11] MEDS: Sodium Chloride 0.45% 1,000 ML IV SCH (07:27)
[2017-10-11 07:31] LABS: ALBUMIN 3.2 g/dL (3.0-4.8); ALT/SGPT 30 U/L (7-56); AST/SGOT 41 U/L (14-36); BLOOD UREA NITROGEN 4 mg/dL (7-21); GFR NON-AFRICAN AMERICAN > 60
[2017-10-11 07:35] LABS: INR 1.13 (0.93-1.08); PARTIAL THROMBOPLASTIN TIME 30.5 Seconds (25.1-36.5)
[2017-10-11] MEDS: Oxycodone/Acetaminophen 5/325 mg Tab PO PRN (07:54)
[2017-10-11] MEDS ORDERED: Multivitamin With Minerals Tab PO SCH (08:00)
[2017-10-11] MEDS ORDERED: Potassium Chloride 20 mEq/15 ml LIQ UD PO STA (08:23)
[2017-10-11] MEDS ORDERED: Magnesium Sulfate 2 gm/50 ml 2 GM/50 ML BAG IVPB ONE (08:23)
[2017-10-11] MEDS: Insulin Lispro (humaLOG) LOW Coverage SC SCH (08:51)
[2017-10-11] MEDS ORDERED: Pantoprazole 40 mg EC Tab PO SCH (10:00)
[2017-10-11] MEDS ORDERED: Magnesium Oxide 400 mg Tab UD PO SCH (10:00)
--- NOTE | 2017-10-11 12:06 | CP.PCM.DIS ---
<Alayna Fisher - Last Filed: 10/11/17 13:56> Provider - Provider Date of Admission: 10/10/17 11:32 Attending physician: Clarence Barry MD Primary care physician: Maria Elena Herbert MD Consults: Dr Richie ROBERT Time Spent in preparation of Discharge (in minutes): 35 Diagnosis - Discharge Diagnosis (1) Peripheral arterial occlusive disease Status: Acute Priority: High Hospital Course - Lab Results Lab Results: Most Recent Lab Values WBC 9.2 10^3/ul (4.5-11.0) D 10/11/17 06:50 RBC 4.88 10^6/uL (3.5-6.1) 10/11/17 06:50 Hgb 16.2 g/dL (12.0-16.0) H 10/11/17 06:50 Hct 45.7 % (36.0-48.0) 10/11/17 06:50 MCV 93.6 fl (80.0-105.0) 10/11/17 06:50 MCH 33.2 pg (25.0-35.0) 10/11/17 06:50 MCHC 35.4 g/dl (31.0-37.0) 10/11/17 06:50 RDW 13.6 % (11.5-14.5) 10/11/17 06:50 Plt Count 118 10^3/uL (120.0-450.0) L 10/11/17 06:50 MPV 9.8 fl (7.0-11.0) 10/11/17 06:50 Gran % 83.9 % (50.0-68.0) H 10/11/17 06:50 Lymph % (Auto) 8.9 % (22.0-35.0) L 10/11/17 06:50 Wetzel % (Auto) 7.1 % (1.0-6.0) H 10/11/17 06:50 Eos % (Auto) 0.0 % (1.5-5.0) L 10/11/17 06:50 Baso % (Auto) 0.1 % (0.0-3.0) 10/11/17 06:50 Gran # 7.75 (1.4-6.5) H 10/11/17 06:50 Lymph # (Auto) 0.8 (1.2-3.4) L 10/11/17 06:50 Wetzel # (Auto) 0.7 (0.1-0.6) H 10/11/17 06:50 Eos # (Auto) 0.0 (0.0-0.7) 10/11/17 06:50 Baso # (Auto) 0.01 K/mm3 (0.0-2.0) 10/11/17 06:50 PT 13.0 SECONDS (9.4-12.5) H 10/11/17 06:50 INR 1.13 (0.93-1.08) H 10/11/17 06:50 APTT 30.5 Seconds (25.1-36.5) 10/11/17 06:50 Sodium 133 mmol/L (132-148) 10/11/17 06:50 Potassium 3.7 mmol/L (3.6-5.0) 10/11/17 06:50 Chloride 102 mmol/L (98-107) 10/11/17 06:50 Carbon Dioxide 22 mmol/L (21-33) 10/11/17 06:50 Anion Gap 13 (10-20) 10/11/17 06:50 BUN 4 mg/dL (7-21) L 10/11/17 06:50 Creatinine 0.7 mg/dl (0.7-1.2) 10/11/17 06:50 Est GFR ( Amer) > 60 10/11/17 06:50 Est GFR (Non-Af Amer) > 60 10/11/17 06:50 POC Glucose (mg/dL) 107 mg/dL (65-110) 10/11/17 07:43 Random Glucose 114 mg/dL (70-110) H 10/11/17 06:50 Calcium 8.0 mg/dL (8.4-10.5) L 10/11/17 06:50 Phosphorus 3.6 mg/dL (2.5-4.5) 10/11/17 06:50 Magnesium 1.4 mg/dL (1.7-2.2) L 10/11/17 06:50 Total Bilirubin 1.0 mg/dL (0.2-1.3) 10/11/17 06:50 AST 41 U/L (14-36) H 10/11/17 06:50 ALT 30 U/L (7-56) 10/11/17 06:50 Alkaline Phosphatase 74 U/L (38-126) 10/11/17 06:50 Total Protein 6.6 g/dL (5.8-8.3) 10/11/17 06:50 Albumin 3.2 g/dL (3.0-4.8) 10/11/17 06:50 Globulin 3.4 gm/dL 10/11/17 06:50 Albumin/Globulin Ratio 1.0 (1.1-1.8) L 10/11/17 06:50 Urine HCG, Qual Negative (NEGATIVE) 10/10/17 06:30 Blood Type A POSITIVE 10/10/17 06:54 Antibody Screen Negative 10/10/17 06:54 BBK History Checked Patient has bt 10/10/17 06:54 - Hospital Course Hospital Course: 42 year old female with a past medical history of untreated hypertension, DM II , alcohol abuse, and tobacco use who [place] [facility] of the . She reports having symptoms of claudication in the bilateral lower extremities for the past ten years. She never sought medical attention until she developed a non-healing ulcer of the left lateral heel. She underwent an MRI of the lower extremities and abdomen with and without contrast that showed severe stenosis of the distal abdominal aorta and bilateral common illiac arteries along with distal left SFA occlusion at the the junction with the popliteal. She saw interventional radiologist Dr. Richie Sanches and underwent EVAR, balloon angioplasty of aorta and illiacs bilaterally. She is unable to quantify the amount time it takes for her to walk before she develops the pain in her legs. She denies any nausea, vomiting, diaphoresis, headache, easy bruising or bleeding. History is significant for untreated DM II, tobacco use with an estimated 20 pack year history, and excessive alcohol use. She was monitored in the ICU overnight. She was monitored for alcohol withdrawal with the CIWA protocol. Physical therapy cleared the patient was discharge today. She was discharged with the below written instructions and recommendations. Of note, given the patients age under 45, complaint of acral paresthesias, elevated Hgb/Hct on multiple admission, and thrombosis at such a young age a EPO and JAK2 [id number] to rule out Polycythemia Vera. This test will be followed up on and the patient or PMD will be contacted. - Date & Time of H&P Date of H&P: 10/11/17 Time of H&P: 14:07 Discharge Exam - Head Exam Head Exam: ATRAUMATIC, NORMOCEPHALIC - Eye Exam Eye Exam: EOMI, Normal appearance - ENT Exam ENT Exam: Mucous Membranes Moist, Normal Oropharynx - Neck Exam Neck exam: Normal Inspection - Respiratory Exam Respiratory Exam: Clear to PA & Lateral, NORMAL BREATHING PATTERN. absent: Accessory Muscle Use - Cardiovascular Exam Cardiovascular Exam: RRR, +S1, +S2 - GI/Abdominal Exam GI & Abdominal Exam: Normal Bowel Sounds - Extremities Exam Extremities exam: normal inspection Additional comments: posterior tibial and dorsalis pedis pulses graded 2/4 bilaterally - Neurological Exam Neurological exam: Alert, CN II-XII Intact, Oriented x3 - Psychiatric Exam Psychiatric exam: Normal Affect, Normal Mood - Skin Skin Exam: Dry, Intact, Normal Color, Warm Discharge Plan - Discharge Medications Prescriptions: Apixaban [Eliquis] 5 mg PO BID #60 tablet Aspirin [Adult Aspirin] 81 mg PO DAILY #30 tablet. Atorvastatin [Lipitor] 40 mg PO HS #30 tab Metoprolol Tartrate 25 mg PO BID #60 tablet oxyCODONE/Acetaminophen [Percocet 5/325 mg Tab] 1 ea PO Q12H #5 tab - Follow Up Plan Condition: GOOD Disposition: HOME/ ROUTINE Instructions: Smoking: Not Just Harmful to Your Lungs and Heart, Quitting Smoking, Drugs to Help You Stop Using Tobacco, Pancreatitis (DC) Additional Instructions: 1) Patient to follow up with up with Dr. Herbert in three days. 2) Patient to follow up with Dr. Richie Sanches. 3) Patient to stop smoking. 4) Patient to take any medications as directed, unless otherwise indicated. 5) Patient to follow up with cardiology as an outpatient. 6) Stop alcohol use. 7) follow up with hematology as outpatient. Referrals: Maria Elena Herbert MD [Primary Care Provider] - <Clarence Barry - Last Filed: 10/11/17 15:35> Provider - Provider Date of Admission: 10/10/17 11:32 Attending physician: Clarence Barry MD Primary care physician: Maria Elena Herbert MD Hospital Course - Lab Results Lab Results: Most Recent Lab Values WBC 9.2 10^3/ul (4.5-11.0) D 10/11/17 06:50 RBC 4.88 10^6/uL (3.5-6.1) 10/11/17 06:50 Hgb 16.2 g/dL (12.0-16.0) H 10/11/17 06:50 Hct 45.7 % (36.0-48.0) 10/11/17 06:50 MCV 93.6 fl (80.0-105.0) 10/11/17 06:50 MCH 33.2 pg (25.0-35.0) 10/11/17 06:50 MCHC 35.4 g/dl (31.0-37.0) 10/11/17 06:50 RDW 13.6 % (11.5-14.5) 10/11/17 06:50 Plt Count 118 10^3/uL (120.0-450.0) L 10/11/17 06:50 MPV 9.8 fl (7.0-11.0) 10/11/17 06:50 Gran % 83.9 % (50.0-68.0) H 10/11/17 06:50 Lymph % (Auto) 8.9 % (22.0-35.0) L 10/11/17 06:50 Wetzel % (Auto) 7.1 % (1.0-6.0) H 10/11/17 06:50 Eos % (Auto) 0.0 % (1.5-5.0) L 10/11/17 06:50 Baso % (Auto) 0.1 % (0.0-3.0) 10/11/17 06:50 Gran # 7.75 (1.4-6.5) H 10/11/17 06:50 Lymph # (Auto) 0.8 (1.2-3.4) L 10/11/17 06:50 Wetzel # (Auto) 0.7 (0.1-0.6) H 10/11/17 06:50 Eos # (Auto) 0.0 (0.0-0.7) 10/11/17 06:50 Baso # (Auto) 0.01 K/mm3 (0.0-2.0) 10/11/17 06:50 PT 13.0 SECONDS (9.4-12.5) H 10/11/17 06:50 INR 1.13 (0.93-1.08) H 10/11/17 06:50 APTT 30.5 Seconds (25.1-36.5) 10/11/17 06:50 Sodium 133 mmol/L (132-148) 10/11/17 06:50 Potassium 3.7 mmol/L (3.6-5.0) 10/11/17 06:50 Chloride 102 mmol/L (98-107) 10/11/17 06:50 Carbon Dioxide 22 mmol/L (21-33) 10/11/17 06:50 Anion Gap 13 (10-20) 10/11/17 06:50 BUN 4 mg/dL (7-21) L 10/11/17 06:50 Creatinine 0.7 mg/dl (0.7-1.2) 10/11/17 06:50 Est GFR ( Amer) > 60 10/11/17 06:50 Est GFR (Non-Af Amer) > 60 10/11/17 06:50 POC Glucose (mg/dL) 107 mg/dL (65-110) 10/11/17 07:43 Random Glucose 114 mg/dL (70-110) H 10/11/17 06:50 Calcium 8.0 mg/dL (8.4-10.5) L 10/11/17 06:50 Phosphorus 3.6 mg/dL (2.5-4.5) 10/11/17 06:50 Magnesium 1.4 mg/dL (1.7-2.2) L 10/11/17 06:50 Total Bilirubin 1.0 mg/dL (0.2-1.3) 10/11/17 06:50 AST 41 U/L (14-36) H 10/11/17 06:50 ALT 30 U/L (7-56) 10/11/17 06:50 Alkaline Phosphatase 74 U/L (38-126) 10/11/17 06:50 Total Protein 6.6 g/dL (5.8-8.3) 10/11/17 06:50 Albumin 3.2 g/dL (3.0-4.8) 10/11/17 06:50 Globulin 3.4 gm/dL 10/11/17 06:50 Albumin/Globulin Ratio 1.0 (1.1-1.8) L 10/11/17 06:50 Urine HCG, Qual Negative (NEGATIVE) 10/10/17 06:30 Blood Type A POSITIVE 10/10/17 06:54 Antibody Screen Negative 10/10/17 06:54 BBK History Checked Patient has bt 10/10/17 06:54 Attending/Attestation - Attestation I have personally seen and examined this patient.: Yes I have fully participated in the care of the patient.: Yes I have reviewed all pertinent clinical information, including history, physical exam and plan: Yes Notes (Text): 10/11/17 15:34 Attending note: Patient seen and examined with resident. Patient is a 42 year old female with a past medical history of untreated hypertension, DM II, alcohol abuse, and tobacco use who [place] [facility] elective percutaneous insertion of aorto iliac prosthesis. Pulses present by doppler. Tolerating diet. Ambulating well. Case discussed with Dr. Sanches in detail. Patient can be discharged home today. Patient is started on aspirin, Lipitor and metoprolol and eliquis. Active smoking; smoking cessation is strongly advised. Active alcohol abuse; alcohol cessation is strongly advised. Elevated hemoglobin since 2017. 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 Needs outpatient hematology workup to rule out other causes. Patient also needs outpatient cardiology evaluation. Upon discharge the patient will follow-up with PMD . Patient agreed with the above recommendations.
--- NOTE | 2017-10-11 15:01 | CP.PCM.PN ---
Subjective - Date & Time of Evaluation Date of Evaluation: 10/11/17 Time of Evaluation: 07:20 - Subjective Subjective: Patient seen and examined this AM. Patient had no adverse events overnight, but she reports some lower abdominal pain and intermittent left lower extremity numbness. The numbness has resolved. Patient denies any nausea or vomiting, fevers, chills, or chest pain or weakness Objective - Vital Signs/Intake and Output Vital Signs (last 24 hours): Temp Pulse Resp BP Pulse Ox 98.2 F 74 12 173/85 H 99 10/11/17 04:00 10/11/17 00:00 10/10/17 18:44 10/11/17 00:00 10/10/17 06:25 Intake and Output: 10/11/17 10/11/17 06:59 18:59 Intake Total 1600 Output Total 400 Balance 1200 - Medications Medications: Current Medications Apixaban (Eliquis) 5 mg PO BID [facility] PRN Reason: Protocol Last Admin: 10/11/17 10:27 Dose: 5 mg Docusate Sodium (Colace) 100 mg PO BID PRN PRN Reason: Constipation Folic Acid (Folic Acid) 1 mg PO DAILY [facility] Last Admin: 10/11/17 10:28 Dose: 1 mg Hydralazine HCl (Apresoline) 10 mg IVP Q6 [facility] Last Admin: 10/11/17 00:00 Dose: 10 mg Insulin Human Lispro (Humalog Low) 0 units SC ACHS [facility] PRN Reason: Protocol Last Admin: 10/11/17 08:51 Dose: Not Given Lorazepam (Ativan) 2 mg IVP Q4H PRN; Protocol PRN Reason: Symptoms of alcohol withdrawl Magnesium Oxide (Mag-Ox) 400 mg PO DAILY [facility] Last Admin: 10/11/17 10:29 Dose: 400 mg Morphine Sulfate (Morphine) 2 mg IVP Q4H PRN PRN Reason: Pain, severe (8-10) Last Admin: 10/10/17 20:36 Dose: 2 mg Multivitamins/Minerals (Therapeutic-M Tab) 1 tab PO 0800 [facility] Last Admin: 10/11/17 10:30 Dose: 1 tab Nicotine (Nicoderm Cq) 1 patch TD DAILY [facility] Last Admin: 10/11/17 10:29 Dose: 1 patch Nitroglycerin (Nitro-Bid 2% Oint) 1 ea TOP Q6H PRN PRN Reason: Systolic Blood Pressure Ondansetron HCl (Zofran Inj) 4 mg IVP Q6H PRN PRN Reason: Nausea/Vomiting Last Admin: 10/10/17 22:02 Dose: 4 mg Oxycodone/Acetaminophen (Percocet 5/325 Mg Tab) 1 tab PO Q4H PRN PRN Reason: Pain, moderate (4-7) Stop: 10/13/17 10:32 Last Admin: 10/11/17 07:54 Dose: 1 tab Pantoprazole Sodium (Protonix Ec Tab) 40 mg PO DAILY [facility] Last Admin: 10/11/17 10:30 Dose: 40 mg Thiamine HCl (Vitamin B1 Tab) 100 mg PO DAILY [facility] Last Admin: 10/11/17 10:33 Dose: 100 mg - Labs Labs: 10/11/17 06:50 10/11/17 06:50 PT 13.0 SECONDS (9.4-12.5) H 10/11/17 06:50 INR 1.13 (0.93-1.08) H 10/11/17 06:50 APTT 30.5 Seconds (25.1-36.5) 10/11/17 06:50 - Constitutional Appears: Well, Non-toxic, No Acute Distress - Head Exam Head Exam: ATRAUMATIC, NORMOCEPHALIC - Eye Exam Eye Exam: Normal appearance. absent: Conjunctival injection, Scleral icterus - ENT Exam ENT Exam: Mucous Membranes Moist, Normal Oropharynx - Respiratory Exam Respiratory Exam: NORMAL BREATHING PATTERN. absent: Accessory Muscle Use, Respiratory Distress - Cardiovascular Exam Cardiovascular Exam: RRR - GI/Abdominal Exam GI & Abdominal Exam: Soft, Tenderness (mild suprapubic tenderness). absent: Distended - Extremities Exam Extremities Exam: Tenderness. absent: Calf Tenderness, Pedal Edema Additional comments: minimal tenderness in the groin at the access sites with no surrounding ecchymosis or swelling. BL pedal pulses dopplerable with good signals. Feet are warm and normal color with motor-sensory exams intact - Neurological Exam Neurological Exam: Alert, Awake, Oriented x3 - Psychiatric Exam Psychiatric exam: Normal Affect, Normal Mood - Skin Skin Exam: Dry, Normal Color, Warm Assessment and Plan - Assessment and Plan (Free Text) Assessment: 42F POD#1 s/p EVAR and balloon angioplasty of the aorta and BL iliac arteries Hemodynamically stable, recovering well with no neuromuscular deficits Plan: No further surgical intervention warranted, patient should follow up as an outpatient for post op check PO pain management Blood pressure control Get patient out of bed and ambulating Monitor diet tolerance Discussed with Dr. Reymundo Restrepo, PGY2
[2017-10-11 15:17] VITALS: PULSE 82
[2017-10-16 14:49] LABS: JAK2 V617F NOT DETECTED
== END 2017-10-11 15:23 | disposition home or self-care (01) | DRG 269 ==
LOC: SDS 06:15 → ICU 11:32
PROVIDERS: ADMIT Internal Medicine; ATTEND Internal Medicine
PROC: 04V03D6 (ICD-10-PCS; principal; 2017-10-10)
DX: I70.203 Unspecified atherosclerosis of native arteries of extremities, bilateral legs (principal); F10.239 Alcohol dependence with withdrawal, unspecified; K86.1 Other chronic pancreatitis; Q25.1 Coarctation of aorta; D75.1 Secondary polycythemia; E11.51 Type 2 diabetes mellitus with diabetic peripheral angiopathy without gangrene; F12.90 Cannabis use, unspecified, uncomplicated; F17.210 Nicotine dependence, cigarettes, uncomplicated; I10 Essential (primary) hypertension; I71.4 Abdominal aortic aneurysm, without rupture; Z79.01 Long term (current) use of anticoagulants; Z79.82 Long term (current) use of aspirin; Z79.84 Long term (current) use of oral hypoglycemic drugs; Z79.899 Other long term (current) drug therapy

== ENCOUNTER 2017-11-24 16:33 | Emergency (ER) | payer OTHER ==
[2017-11-24 16:54] VITALS: BMI 22.6
[2017-11-24] MEDS ORDERED: Sodium Chloride 0.9% 1,000 ML IV STA (17:31)
[2017-11-24] MEDS ORDERED: Morphine 2 mg/ml ISec IVP STA (17:35)
--- NOTE | 2017-11-24 17:38 | ED PDOC ---
Arrival/HPI - General Chief Complaint: Abdominal Pain Time Seen by Provider: 11/24/17 16:35 Historian: Patient - History of Present Illness Narrative History of Present Illness (Text): 11/24/17 17:30 This 42 yo female with psh endovar 10.10.17, presents to this ED c/o epigastric pain, nausea, vomiting x 2 hours. Patient also stated right forearm pain, and swelling x 1 week. Patient denies diarrhea, fever, rectal bleeding, or urinary symptoms. Time/Duration: Other (see hpi) Context: Home Past Medical History - Provider Review Nursing Documentation Reviewed: Yes - Past History Past History: No Previous - Infectious Disease Hx of Infectious Diseases: None - Tetanus Immunization Tetanus Immunization: Up to Date - Cardiac Hx Cardiac Disorders: Yes Hx Hypertension: Yes Hx Peripheral Vascular Disease: Yes - Pulmonary Hx Respiratory Disorders: No - Neurological Hx Neurological Disorder: No - HEENT Hx HEENT Disorder: Yes (eyeglasses) - Renal Hx Renal Disorder: No - Endocrine/Metabolic Hx Endocrine Disorders: Yes Other/Comment: borderline diabetic, recently was prescribed metformin 500 mg po bid, 1 wk ago has not started it yet - Hematological/Oncological Hx Blood Disorders: No - Integumentary Hx Dermatological Disorder: Yes Other/Comment: bilateral groin dressings dry and intact, 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, dry skin r ft - Musculoskeletal/Rheumatological Hx Falls: No - Gastrointestinal Hx Gastrointestinal Disorders: Yes (appetite loss and weight loss) Hx Pancreatitis: Yes (2011) Other/Comment: colonoscopy 07/28/17 dx spastic colon, intrnal hemorrhoids, colitis - Genitourinary/Gynecological Hx Genitourinary Disorders: Yes (irregular periods) - Psychiatric Hx Psychophysiologic Disorder: Yes Hx Emotional Abuse: No Hx Physical Abuse: No Hx Substance Use: No Other/Comment: 6 pack beer daily, 1/2 ppd smoker - Surgical History Other/Comment: left heel surgical repair, baloon angioplasty of aortia and iliac bilaterally 10/10/17 in vascular - Anesthesia Hx Anesthesia: Yes Hx Anesthesia Reactions: No Hx Malignant Hyperthermia: No - Suicidal Assessment Feels Threatened In Home Enviroment: No Family/Social History - Physician Review Nursing Documentation Reviewed: Yes Family/Social History: Other Smoking Status: Heavy Smoker > 10 Cigarettes Daily Hx Alcohol Use: Yes (6 pack beer daily) Hx Substance Use: No Allergies/Home Meds Allergies/Adverse Reactions: Allergies latex Allergy (Severe, Verified 11/24/17 16:54) RASH shellfish derived Allergy (Severe, Verified 11/24/17 16:54) SHORTNESS OF BREATH Home Medications: Home Meds Medication Instructions Recorded Confirmed No Known Home Med 11/24/17 11/24/17 Review of Systems - Review of Systems Constitutional: Normal. absent: Fatigue, Weight Change, Fevers Eyes: Normal ENT: Normal Respiratory: Normal Cardiovascular: Normal Gastrointestinal: Abdominal Pain, Nausea, Vomiting. absent: Constipation, Diarrhea Genitourinary Female: Normal. absent: Dysuria, Frequency, Hematuria Musculoskeletal: Other (see hpi) Skin: Normal Neurological: Normal Endocrine: Normal Hemo/Lymphatic: Normal Psychiatric: Normal Physical Exam Vital Signs Temp Pulse Resp BP Pulse Ox 11/24/17 17:40 74 17 152/80 H 99 11/24/17 16:42 98.4 F 77 18 156/86 H 100 Temperature: Afebrile Blood Pressure: Normal Pulse: Regular Respiratory Rate: Normal Appearance: Positive for: Well-Appearing, Non-Toxic, Comfortable Pain Distress: None Mental Status: Positive for: Alert and Oriented X 3 - Systems Exam Head: Present: Atraumatic, Normocephalic Pupils: Present: PERRL Extroacular Muscles: Present: EOMI Conjunctiva: Present: Normal Mouth: Present: Moist Mucous Membranes Neck: Present: Normal Range of Motion Respiratory/Chest: Present: Clear to Auscultation, Good Air Exchange. No: Respiratory Distress, Accessory Muscle Use Cardiovascular: Present: Regular Rate and Rhythm, Normal S1, S2. No: Murmurs Abdomen: Present: Tenderness (Mild epigastric tenderness), Normal Bowel Sounds. No: Distention, Peritoneal Signs, Rebound, Guarding Back: Present: Normal Inspection. No: CVA Tenderness Upper Extremity: Present: Normal Inspection, Normal ROM, NORMAL PULSES, Neurovascularly Intact, Capillary Refill < 2s. No: Cyanosis, Edema, Tenderness , Swelling, Erythema, Temperature Abnormalties Lower Extremity: Present: Normal Inspection, NORMAL PULSES, Normal ROM, Neurovascularly Intact, Capillary Refill < 2 s. No: Edema, CALF TENDERNESS, Cyanosis, Lio's Sign, Tenderness, Swelling, Erythema, Deformity, Temperature Abnormalties Neurological: Present: GCS=15, CN II-XII Intact, Speech Normal, Motor Func Grossly Intact, Normal Sensory Function, Normal Cerebellar Funct, Gait Normal Skin: Present: Warm, Dry, Normal Color. No: Rashes Psychiatric: Present: Alert, Oriented x 3, Normal Insight, Normal Concentration Medical Decision Making ED Course and Treatment: 11/24/17 21:16 I spoke with patient regarding CT scan which shows pancreatitis, fluid collection, and pancreatic neosplasm can not be rule out. Patient understood result. However, patient stated she need to do something important tomorrow morning, and she will not be able to stay in hospital tonight. She wants to sign herself AMA. Patient stated she will follow up with her pmd, and Dr. Richie Sanches. She agreed to return to ED if symptoms returns, and she will follow up and review CT scan result with her doctor. Leaving Against Medical Advice (AMA): This patient is choosing to leave against medical advice. The EP has personally explained to the pt that choosing to do so may result in permanent bodily harm or . The EP discussed at great length that without further evaluation and monitoring there may be unforeseen circumstances and/or deterioration causing permanent bodily harm or as a result of their choice. The pt verbalized these risks back to the physician in laymans terms. The pt is alert, oriented, and shows the mental capacity to make clear decisions regarding the pts health care at this time. The pt continues to wish to leave against medical advice. In light of the pts decision to leave AMA, follow-up has been recommended and the pt is aware of the importance of following up as instructed. The pt has been advised that they should return to the ED immediately if they change their mind at any time, or if the condition begins to change or worsen in any way. - Lab Interpretations Lab Results: 11/24/17 17:50 11/24/17 19:19 Lab Results 11/24/17 19:19: Sodium 138, Potassium 4.5, Chloride 105, Carbon Dioxide 25, Anion Gap 12, BUN 8, Creatinine 0.9, Est GFR ( Amer) > 60, Est GFR (Non- Af Amer) > 60, Random Glucose 125 H, Calcium 9.3, Magnesium 1.6 L, Total Bilirubin 0.6, AST 23, ALT 28, Alkaline Phosphatase 86, Lactate Dehydrogenase 534, Total Creatine Kinase 40, Troponin I 0.03, NT-Pro-B Natriuret Pep 293, Total Protein 7.8, Albumin 3.8, Globulin 4.0, Albumin/Globulin Ratio 1.0 L, Lipase 78 11/24/17 17:50: Urine Color Dark yellow, Urine Appearance Slight-cloudy, Urine pH 5.5, Ur Specific Roy >= 1.030, Urine Protein 30 H, Urine Glucose (UA) Negative, Urine Ketones Trace H, Urine Blood Trace-lysed H, Urine Nitrate Negative, Urine Bilirubin Small H, Urine Urobilinogen 0.2, Ur Leukocyte Esterase Small H, Urine RBC 0 - 2, Urine WBC 10 - 15, Ur Epithelial Cells 10 - 12, Urine Bacteria Mod, Urine HCG, Qual Negative 11/24/17 17:50: WBC 4.6 D, RBC 5.69, Hgb 18.5 H* D, Hct 53.0 H, MCV 93.1, MCH 32.5, MCHC 34.9, RDW 13.4, Plt Count 132, MPV 10.2, Gran % 64.6, Lymph % (Auto) 25.4, [place] % (Auto) 9.6 H, Eos % (Auto) 0.2 L, Baso % (Auto) 0.2, Gran # 2.94, Lymph # (Auto) 1.2, [place] # (Auto) 0.4, Eos # (Auto) 0.0, Baso # (Auto) 0.01 I have reviewed the lab results: Yes Interpretation: No sign. chg./baseline - RAD Interpretation Narrative RAD Interpretations (Text): 11/24/17 20:51 FINDINGS: Lung bases: Unremarkable. No mass. No consolidation. ABDOMEN: Liver: Unremarkable. No mass. Gallbladder and bile ducts: Unremarkable. No calcified stones. No ductal dilation. Pancreas: There is a loculated fluid attenuation collection in the left upper quadrant. It measures up to 6.9 x 7.5 x 3.3 cm. There is a second adjacent fluid density collection posteriorly image 20, 2.1 cm. There is a fluid attenuation focus at the pancreatic head level measuring up to 2.3 cm in diameter with some mild adjacent soft tissue stranding in the region. No ductal dilation. Spleen: Unremarkable. No splenomegaly. Adrenals: Unremarkable. No mass. Kidneys and ureters: Unremarkable. No solid mass. No hydronephrosis. Stomach and bowel: Unremarkable. No obstruction. No mucosal thickening. PELVIS: Appendix: No findings to suggest acute appendicitis. Bladder: Unremarkable. No mass. Reproductive: Endometrium appears slightly thickened and hyperdense. ABDOMEN and PELVIS: Intraperitoneal space: Unremarkable. No free air. No significant fluid collection. Bones/joints: No acute fracture. No dislocation. Soft tissues: Unremarkable. Vasculature: There are aortoiliac endoluminal stents in place. No abdominal aortic aneurysm. Lymph nodes: Unremarkable. No enlarged lymph nodes. IMPRESSION: Changes of acute pancreatitis. Fluid density collections are likely residual pseudocysts from previous episodes. Cystic pancreatic neoplasm process not excludable Radiology Orders: 11/24/17 17:35 DUPLEX UPPER EXTRM VEIN RIGHT [US] Stat 11/24/17 17:38 ABD & PELVIS IV CONTRAST ONLY [CT] Stat 11/24/17 18:03 CHEST PORTABLE [RAD] Stat - Medication Orders Current Medication Orders: Discontinued Medications Sodium Chloride (Sodium Chloride 0.9%) 1,000 mls @ 1,000 mls/hr IV .Q1H STA Stop: 11/24/17 18:30 Last Admin: 11/24/17 18:03 Dose: 1,000 mls/hr eMAR Start Stop Document 11/24/17 18:03 SF (Rec: 11/24/17 18:03 [id number] Intravenous Solution Start Date 11/24/17 Start Time 18:03 End Date 11/24/17 End time 19:03 Total Infusion Time 60 Morphine Sulfate (Morphine) 2 mg IVP STAT STA Stop: 11/24/17 17:36 Last Admin: 11/24/17 17:51 Dose: 2 mg MAR Pain Assessment Document 11/24/17 17:51 SF (Rec: 11/24/17 17:59 [id number] Pain Reassessment Is this a pain reassessment? No Sleep Is patient sleeping during reassessment? No Presence of Pain Presence of Pain Yes Pain Scale Used Pain Scale Used Numeric Location Pain Location Body Site Abdomen Description Description Constant Intensity of Pain at present 7 IVP Administration Document 11/24/17 17:51 SF (Rec: 11/24/17 17:59 [id number][facility] Charges for Administration # of IVP Administrations 1 Morphine Sulfate (Morphine) 4 mg IVP STAT STA Stop: 11/24/17 20:22 Last Admin: 11/24/17 20:27 Dose: 4 mg MAR Pain Assessment Document 11/24/17 20:27 IT (Rec: 11/24/17 20:27 IT [id number]) Pain Reassessment Is this a pain reassessment? No Sleep Is patient sleeping during reassessment? No Presence of Pain Presence of Pain Yes Pain Scale Used Pain Scale Used Numeric Location Left, Right or Bilateral Bilateral Pain Location Body Site Abdomen Description Description Constant Pain Behavior Moaning IVP Administration Document 11/24/17 20:27 IT (Rec: 11/24/17 20:27 IT [id number]) Charges for Administration # of IVP Administrations 1 Ondansetron HCl (Zofran Inj) 4 mg IVP STAT STA Stop: 11/24/17 17:32 Last Admin: 11/24/17 17:45 Dose: 4 mg IVP Administration Document 11/24/17 17:45 SF (Rec: 11/24/17 17:45 SF [id number]) Charges for Administration # of IVP Administrations 1 Ondansetron HCl (Zofran Inj) 4 mg IVP STAT STA Stop: 11/24/17 20:17 Last Admin: 11/24/17 20:27 Dose: 4 mg IVP Administration Document 11/24/17 20:27 IT (Rec: 11/24/17 20:27 IT [id number]) Charges for Administration # of IVP Administrations 1 Pantoprazole Sodium (Protonix Inj) 40 mg IVP STAT STA Stop: 11/24/17 17:32 Last Admin: 11/24/17 17:45 Dose: 40 mg IVP Administration Document 11/24/17 17:45 SF (Rec: 11/24/17 17:46 SF [id number]) Charges for Administration # of IVP Administrations 1 Disposition/Present on Arrival - Present on Arrival Any Indicators Present on Arrival: No History of DVT/PE: No History of Uncontrolled Diabetes: No Urinary Catheter: No History of Decub. Ulcer: No History Surgical Site Infection Following: None - Disposition Have Diagnosis and Disposition been Completed?: Yes Diagnosis: Pancreatitis, Abnormal CT scan Disposition: AGAINST MEDICAL ADVICE Disposition Time: 21:21 Condition: UNKNOWN Additional Instructions: You need to see your doctor in 1-2 days. Liquid diet. Review urine culture with your doctor in 2-3 days. Remember to see your doctor regarding the following CT scan result: IMPRESSION: Changes of acute pancreatitis. Fluid density collections are likely residual pseudocysts from previous episodes. Cystic pancreatic neoplasm process not excludable. Return to emergency at anytime for worsening symptoms. Referrals: Maria Elena Herbert MD [Primary Care Provider] - Follow up with primary Forms: [employer] ([place])
[2017-11-24 18:16] VITALS: RESP 17
[2017-11-24 18:24] LABS: BASO # 0.01 K/mm3 (0.0-2.0); BASO % 0.2 % (0.0-3.0); EOS % 0.2 % (1.5-5.0); GRAN # 2.94 (1.4-6.5); GRAN % 64.6 % (50.0-68.0); LYMPH # 1.2 (1.2-3.4); LYMPH % 25.4 % (22.0-35.0); MEAN CELL VOLUME 93.1 fl (80.0-105.0); MEAN CORPUSCULAR HEMOGLOBIN 32.5 pg (25.0-35.0); MEAN CORPUSCULAR HGB CONC 34.9 g/dl (31.0-37.0); MEAN PLATELET VOLUME 10.2 fl (7.0-11.0); MONO # 0.4 (0.1-0.6); MONO % 9.6 % (1.0-6.0); RBC 5.69 10^6/uL (3.5-6.1); RED CELL DISTRIBUTION WIDTH 13.4 % (11.5-14.5); WHITE BLOOD COUNT 4.6 10^3/ul (4.5-11.0)
[2017-11-24 18:28] LABS: PH,URINE 5.5 (4.7-8.0); URINE BILIRUBIN SMALL (NEGATIVE); URINE BLOOD TRACE-LYSED (NEGATIVE); URINE GLUCOSE (UA) NEGATIVE (NEGATIVE); URINE LEUKOCYTE ESTERASE SMALL Leu/uL (NEGATIVE); URINE PROTEIN 30 mg/dL (<30 mg/dL); URINE UROBILINOGEN 0.2 E.U./dL (<1 E.U./dL)
[2017-11-24 18:30] LABS: URINE APPEARANCE SLIGHT-CLOUDY (CLEAR); URINE COLOR DARK YELLOW (YELLOW)
[2017-11-24 18:31] LABS: HCG,QUALITATIVE URINE NEGATIVE (NEGATIVE)
[2017-11-24 18:34] LABS: HEMOGLOBIN 18.5 g/dL (12.0-16.0)
[2017-11-24 18:37] LABS: URINE BACTERIA MOD (NEG); URINE RBC 0 - 2 /hpf (0-2)
[2017-11-24 19:36] LABS: ALBUMIN 3.8 g/dL (3.0-4.8); ALT/SGPT 28 U/L (7-56); AST/SGOT 23 U/L (14-36); BLOOD UREA NITROGEN 8 mg/dL (7-21); CALCIUM 9.3 mg/dL (8.4-10.5); GFR AFRICAN-AMERICAN > 60; GFR NON-AFRICAN AMERICAN > 60; LIPASE 78 U/L (23-300)
[2017-11-24 19:47] LABS: B-TYPE NATRIURETIC PEPTIDE 293 pg/mL (0-450); TROPONIN I 0.03 ng/mL
[2017-11-24] MEDS ORDERED: Iohexol 350 MG/100 ML VIAL ONE (19:59)
[2017-11-24] MEDS ORDERED: HYDROmorphone 1 mg/ml ISec IVP STA (20:15)
[2017-11-24] MEDS ORDERED: Morphine 4 mg/ml ISec IVP STA (20:21)
[2017-11-24 21:47] VITALS: BP 151/85; PULSE 72; TEMP 98.2; O2SAT 100
--- NOTE | 2017-11-25 08:54 | CARD ---
APPROVED REPORT Date of service: 11/24/2017 EKG Measurement Heart [id number] <Conclusion> Normal sinus rhythm Possible Left atrial enlargement Borderline ECG
--- NOTE | 2017-11-25 12:09 | CT ---
Date of service: 11/24/2017 PROCEDURE: CT Abdomen and Pelvis with contrast HISTORY: abdominal pain COMPARISON: None. TECHNIQUE: Contiguous helical/ transaxial sections of the abdomen and pelvis performed following intravenous injection of contrast material. Additional 2D sagittal and coronal reformats provided. Contrast dose: 100 cc Visipaque 350 Radiation dose: Total exam DLP = 242.82 mGy-cm. This CT exam was performed using one or more of the following dose reduction techniques: Automated exposure control, adjustment of the mA and/or kV according to patient size, and/or use of iterative reconstruction technique. FINDINGS: LOWER THORAX: Mild passive atelectasis both posterior lower lung ugalde. LIVER: Liver enlarged measuring approximately 21.5 cm in CC dimension. No obvious hepatic mass or collection. Portal and splenic veins are opacified. GALLBLADDER AND BILE DUCTS: Gallbladder is physiologically distended. No evidence of intraluminal gallbladder calculi. PANCREAS: There is a rounded approximately 2.5 x 2.5 cm fluid collection in the pancreatic head. In addition, there is a large loculated somewhat triangular-shaped fluid collection the region the pancreatic tail that measures approximately 7.9 x 5.6 cm with an adjacent on smaller loculated collection measuring approximately the 2.35 x 1.9 cm. Findings are consistent with pancreatic pseudocyst formation likely related to prior bouts of acute pancreatitis. Note that the possibility of a cystic pancreatic neoplasm not completely excluded. There are also mild infiltration changes are also not seen about the pancreatic head and body consistent with acute pancreatitis as well. The the SPLEEN: Unremarkable. ADRENALS: There are no adrenal lesions. KIDNEYS AND URETERS: Kidneys demonstrate symmetric nephrograms. No evidence of nephrolithiasis or hydronephrosis. VASCULATURE: In situ endovascular stent grafts seen extending from the infrarenal abdominal aorta inferiorly in to both iliac arteries. BOWEL: Evaluation of the bowel is limited due to the lack of oral contrast material. The stomach is incompletely distended with air and some residual food debris/ liquid. Visualized loops of small bowel exhibit normal contour and caliber. No evidence of acute mechanical small bowel obstruction. The most of the large bowel is collapsed which presumably in part accounts for thick-walled appearance. Peristalsis and unopacified stool may contribute. APPENDIX: Normal-appearing appendix of best seen on axial image number [id number]. No evidence to suggest acute appendicitis. PERITONEUM: Unremarkable. No free fluid. No free air. LYMPH NODES: Unremarkable. No enlarged lymph nodes. BLADDER: Urinary in part accounts for thick-walled appearance however correlation with urinalysis recommended to exclude cystitis. Bladder incompletely distended which REPRODUCTIVE: Unremarkable. BONES: No acute fracture. OTHER FINDINGS: None. IMPRESSION: Findings consistent with acute pancreatitis with us on several on pancreatic pseudocyst consistent with sequela of prior bouts of pancreatitis. Note however the possibility of cystic pancreatic neoplasms not completely excluded. Hepatomegaly. See above discussion for additional details findings and recommendations. The U[facility]
--- NOTE | 2017-11-25 12:50 | RAD ---
Date of service: 11/24/2017 HISTORY: epigastric pain COMPARISON: No comparison chest dated 10/05/2017 FINDINGS: LUNGS: Minor bibasilar atelectasis PLEURA: No significant pleural effusion identified, no pneumothorax apparent. CARDIOVASCULAR: Normal. OSSEOUS STRUCTURES: No significant abnormalities. VISUALIZED UPPER ABDOMEN: Normal. OTHER FINDINGS: None. IMPRESSION: No minor bibasilar atelectasis
--- NOTE | 2017-11-26 18:52 | US ---
PROCEDURE: Right upper extremity venous US CLINICAL HISTORY: Arm pain and swelling Evaluate for deep venous thrombosis. PHYSICIAN(S): Richie Sanches M.D FINDINGS: The visualized rightinternal jugular vein is small but otherwise normal and compressible. No evidence of obstruction or thrombus is seen. The visualized segments of the right subclavian vein are patent with normal waveforms. No sonographic evidence of obstruction or thrombosis is seen. The visualized deep venous system of the proximal right upper extremity is sonographically normal and compressible. IMPRESSION: 1. No sonographic evidence for deep venous thrombosis in the visualized segments of the right upper extremity.
== END 2017-11-24 21:48 | disposition left against medical advice (07) ==
LOC: ED 16:33
DX: K85.90 Acute pancreatitis without necrosis or infection, unspecified (principal); R93.8 Abnormal findings on diagnostic imaging of other specified body structures; I10 Essential (primary) hypertension; F17.210 Nicotine dependence, cigarettes, uncomplicated
CPT/HCPCS: 71045; 74177; 80053; 81001; 82550; 83615; 83690; 83735; 83880; 84484; 84703; 85025; 87086; 93005; 93971; 96361; 96374; 96375; 96376; 99285; C9113; J2270; J2405; J7030; Q9967

== ENCOUNTER 2018-01-22 15:16 | Inpatient (IN) | payer OTHER ==
--- NOTE | 2018-01-22 16:46 | ED PDOC ---
Arrival/HPI - General Historian: Patient - History of Present Illness Narrative History of Present Illness (Text): Patient is a 42 year old female with a past medical history of PAD (2 stents in Aorta) presenting to the emergency room after receiving a call from her PMD Dr. Burden stating she had a blood clot in her lung and that she should go to the ED immediately. Patient she is feeling well and has no complaints. She had Chest CT W/WO, ECHO and Abd US over the weekend as a continued work-up of patient's history of PAD. Patient had been stating that she was becoming more short of breath on exertion recently. Patient is currently resting comfortably without complaints and speaking in full sentences. Denies fevers, chills, nausea, vomiting, diarrhea, constipation, chest pain, SOB, abdominal pain, headaches, vision changes, numbness or tingling. PMD: Jenise Time/Duration: 1-3 hours Symptom Onset: Other (no symptoms) Symptom Course: Unchanged Severity Level: 1 <Jamey Martinez - Last Filed: 01/22/18 19:20> <Сергей Del Rio - Last Filed: 01/22/18 23:43> - General Time Seen by Provider: 01/22/18 15:29 Past Medical History - Provider Review Nursing Documentation Reviewed: Yes - Past History Past History: No Previous - Infectious Disease Hx of Infectious Diseases: None - Tetanus Immunization Tetanus Immunization: Up to Date - Reproductive Menopause: No - Cardiac Hx Cardiac Disorders: Yes Hx Hypertension: Yes Hx Peripheral Vascular Disease: Yes - Pulmonary Hx Respiratory Disorders: No - Neurological Hx Neurological Disorder: No - HEENT Hx HEENT Disorder: Yes (eyeglasses) - Renal Hx Renal Disorder: No - Endocrine/Metabolic Hx Endocrine Disorders: Yes Other/Comment: borderline diabetic, recently was prescribed metformin 500 mg po bid, 1 wk ago has not started it yet - Hematological/Oncological Hx Blood Disorders: No - Integumentary Hx Dermatological Disorder: Yes Other/Comment: bilateral groin dressings dry and intact, 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 but dry flakey hard skin noted, dry skin r ft - Musculoskeletal/Rheumatological Hx Falls: No - Gastrointestinal Hx Gastrointestinal Disorders: Yes (appetite loss and weight loss) Hx Pancreatitis: Yes (2011) Other/Comment: colonoscopy 07/28/17 dx spastic colon, intrnal hemorrhoids, colitis - Genitourinary/Gynecological Hx Genitourinary Disorders: Yes (irregular periods) - Psychiatric Hx Psychophysiologic Disorder: Yes Hx Emotional Abuse: No Hx Physical Abuse: No Hx Substance Use: No Other/Comment: 6 pack beer daily, 1/2 ppd smoker - Surgical History Other/Comment: left heel surgical repair, baloon angioplasty of aortia and iliac bilaterally 10/10/17 in vascular - Anesthesia Hx Anesthesia: Yes Hx Anesthesia Reactions: No Hx Malignant Hyperthermia: No - Suicidal Assessment Feels Threatened In Home Enviroment: No <Jamey Martinez - Last Filed: 01/22/18 19:20> Family/Social History - Physician Review Nursing Documentation Reviewed: Yes Family/Social History: CVA/TIA (mother ) Smoking Status: Heavy Smoker > 10 Cigarettes Daily Hx Alcohol Use: Yes (6 pack beer daily) Hx Substance Use: No <Jamey Martinez - Last Filed: 01/22/18 19:20> Allergies/Home Meds <Jamey Martinez - Last Filed: 01/22/18 19:20> <Сергей Del Rio - Last Filed: 01/22/18 23:43> Allergies/Adverse Reactions: Allergies latex Allergy (Severe, Verified 11/24/17 16:54) RASH shellfish derived Allergy (Severe, Verified 11/24/17 16:54) SHORTNESS OF BREATH Home Medications: Home Meds Medication Instructions Recorded Confirmed No Known Home Med 11/24/17 01/22/18 Review of Systems - Physician Review All systems were reviewed & negative as marked: Yes - Review of Systems Constitutional: Normal. absent: Fatigue, Fevers Eyes: Normal. absent: Vision Changes ENT: Normal Respiratory: Normal. absent: SOB, Cough, Wheezing Cardiovascular: JASSO. absent: Chest Pain, Palpitations, Syncope Gastrointestinal: Normal. absent: Abdominal Pain, Constipation, Diarrhea, Nausea, Vomiting Musculoskeletal: Normal Skin: Normal Neurological: Normal. absent: Headache, Dizziness Endocrine: Normal Hemo/Lymphatic: Normal. absent: Adenopathy Psychiatric: Normal <Jamey Martinez - Last Filed: 01/22/18 19:20> Physical Exam Vital Signs Reviewed: Yes Vital Signs Temp Pulse Resp BP Pulse Ox 01/22/18 16:30 98.4 F 85 18 150/88 98 01/22/18 16:11 99.3 F 97 H 18 148/100 H 99 Temperature: Afebrile Blood Pressure: Hypertensive Pulse: Regular Respiratory Rate: Normal Appearance: Positive for: Well-Appearing, Non-Toxic, Comfortable Pain Distress: None Mental Status: Positive for: Alert and Oriented X 3 - Systems Exam Head: Present: Atraumatic, Normocephalic Extroacular Muscles: Present: EOMI Conjunctiva: Present: Normal Mouth: Present: Moist Mucous Membranes Nose (External): Present: Atraumatic Nose (Internal): Present: No Active Bleeding, Moist Neck: Present: Normal Range of Motion Respiratory/Chest: Present: Clear to Auscultation, Good Air Exchange. No: Respiratory Distress, Accessory Muscle Use, Wheezes, Rales, Rhonchi, Tachypneic, Tender to Palpation Cardiovascular: Present: Regular Rate and Rhythm, Normal S1, S2. No: Murmurs Abdomen: No: Tenderness, Distention, Peritoneal Signs Upper Extremity: Present: Normal Inspection, NORMAL PULSES. No: Cyanosis, Edema Lower Extremity: Present: Normal Inspection. No: Edema, NORMAL PULSES (no PT on left LE ) Neurological: Present: GCS=15, CN II-XII Intact, Speech Normal Skin: Present: Warm, Dry, Normal Color. No: Rashes Psychiatric: Present: Alert, Oriented x 3, Normal Insight, Normal Concentration <Jamey Martinez - Last Filed: 01/22/18 19:20> Vital Signs Temp Pulse Resp BP Pulse Ox 01/22/18 16:30 98.4 F 85 18 150/88 98 01/22/18 16:11 99.3 F 97 H 18 148/100 H 99 <Сергей Del Rio - Last Filed: 01/22/18 23:43> Medical Decision Making ED Course and Treatment: Patient is a 42 year old female with a past medical history of PAD with stents sent in by her PMD Dr. Burden because of a pulmonary embolism seen on CT over the weekend. Call placed to Dr. Burden who requested CTA - PE protocol and baseline labs Orders placed. CTA re-shows PE Case discussed with Dr. Burden. Patient accepted to his service. Patient started on heparin. - Lab Interpretations I have reviewed the lab results: Yes - RAD Interpretation Narrative RAD Interpretations (Text): 01/22/18 18:55 CTA: Re-identified filling defect consistent with pulmonary embolus identified within the left lower lobe segmental branches. Radiology Orders: 01/22/18 16:42 ANGIO CHEST PE PROTOCOL [CT] Stat Perianesthesia Manager: Radiologist <Jamey Martinez - Last Filed: 01/22/18 19:20> ED Course and Treatment: 1643 We are to re-order pe per Dr. Burden 01/22/18 19:10 PE, Per pt no problem w/ heparin in the past. No GI bleed. No dark or bloody stool. H&H unremarkable. started on heparin. Appreciate consult w/ Dr. Burden: to be admitted to tele under Dr. Hernandez service - Lab Interpretations Lab Results: 01/22/18 17:25 01/22/18 17:25 Lab Results 01/22/18 17:25: Sodium 135, Potassium 4.0, Chloride 105, Carbon Dioxide 24, Anion Gap 10, BUN 9, Creatinine 0.8, Est GFR ( Amer) > 60, Est GFR (Non- Af Amer) > 60, Random Glucose 131 H, Calcium 8.8, Total Bilirubin 0.9, AST 31, ALT 17, Alkaline Phosphatase 80, Total Protein 6.9, Albumin 3.3, Globulin 3.5, Albumin/Globulin Ratio 0.9 L 01/22/18 17:25: PT 12.6 H, INR 1.10, APTT 26.6 01/22/18 17:25: WBC 6.0, RBC 5.54, Hgb 18.0 H, Hct 50.9 H, MCV 91.9, MCH 32.5, MCHC 35.4, RDW 13.7, Plt Count 119 L, MPV 10.4, Gran % 64.7, Lymph % (Auto) 22.5, [place] % (Auto) 11.8 H, Eos % (Auto) 0.8 L, Baso % (Auto) 0.2, Gran # 3.85, Lymph # (Auto) 1.3, [place] # (Auto) 0.7 H, Eos # (Auto) 0.1, Baso # (Auto) 0.01 - RAD Interpretation Radiology Orders: 01/22/18 16:42 ANGIO CHEST PE PROTOCOL [CT] Stat <Сергей Del Rio - Last Filed: 01/22/18 23:43> - PA / BRASS INSTRUMENT REPAIR TECHNICIAN / Resident Statement /DO has examined the patient and agrees with the treatment plan. <Сергей Del Rio - Last Filed: 01/22/18 23:43> Disposition/Present on Arrival - Present on Arrival Any Indicators Present on Arrival: No History of DVT/PE: No History of Uncontrolled Diabetes: No Urinary Catheter: No History of Decub. Ulcer: No History Surgical Site Infection Following: None - Disposition Have Diagnosis and Disposition been Completed?: Yes Disposition Time: 19:23 Patient Plan: Admission <Jamey Martinez - Last Filed: 01/22/18 19:20> - Disposition Have Diagnosis and Disposition been Completed?: Yes <Сергей Del Rio - Last Filed: 01/22/18 23:43> - Disposition Diagnosis: Pulmonary embolism Disposition: HOSPITALIZED Patient Problems: Current Active Problems Problem Status Onset Pulmonary embolism Acute Condition: GUARDED
[2018-01-22 17:44] LABS: ALB/GLOB RATIO 0.9 (1.1-1.8); ALBUMIN 3.3 g/dL (3.0-4.8); BLOOD UREA NITROGEN 9 mg/dL (7-21); CALCIUM 8.8 mg/dL (8.4-10.5); GFR NON-AFRICAN AMERICAN > 60
[2018-01-22 17:50] LABS: ALT/SGPT 17 U/L (7-56); AST/SGOT 31 U/L (14-36)
[2018-01-22 17:58] LABS: BASO # 0.01 K/mm3 (0.0-2.0); BASO % 0.2 % (0.0-3.0); EOS # 0.1 (0.0-0.7); EOS % 0.8 % (1.5-5.0); GRAN # 3.85 (1.4-6.5); GRAN % 64.7 % (50.0-68.0); LYMPH # 1.3 (1.2-3.4); LYMPH % 22.5 % (22.0-35.0); MEAN CELL VOLUME 91.9 fl (80.0-105.0); MEAN CORPUSCULAR HEMOGLOBIN 32.5 pg (25.0-35.0); MEAN CORPUSCULAR HGB CONC 35.4 g/dl (31.0-37.0); MEAN PLATELET VOLUME 10.4 fl (7.0-11.0); MONO # 0.7 (0.1-0.6); MONO % 11.8 % (1.0-6.0); RBC 5.54 10^6/uL (3.5-6.1); RED CELL DISTRIBUTION WIDTH 13.7 % (11.5-14.5)
[2018-01-22 18:01] LABS: INR 1.1; PARTIAL THROMBOPLASTIN TIME 26.6 Seconds (25.1-36.5); PROTHROMBIN TIME 12.6 SECONDS (9.4-12.5)
[2018-01-22] MEDS ORDERED: Iohexol 350 MG/100 ML VIAL ONE (18:07)
--- NOTE | 2018-01-22 18:50 | CT ---
Date of service: 01/22/2018 CTA chest PE protocol Indication: ? PE Technique: Contiguous axial images were obtained through the chest with intravenous contrast enhancement. Sagittal and coronal reconstructions were generated and reviewed. This CT exam was performed using 1 or more of the following dose reduction techniques: Automated exposure control, adjustment of the MAA and/or kV according to patient size, and/or use of iterative reconstruction technique. IV contrast: 100 mL Omnipaque 350 Radiation dose (DLP): 253.74 MGy-cm. Comparison: CT chest without/with contrast performed 01/20/18 Findings: Visualized portions of the inferior thyroid gland appear unremarkable. The mediastinal and hilar vascular structures appear within normal limits. The heart appears within normal limits of size. No central embolus identified. Filling defects within the left lower lobe segmental branches consistent with pulmonary embolus. No focal consolidation. No pleural effusion. No pneumothorax. No suspicious pulmonary nodules measuring greater than 5 mm. Limited visualized portions of the upper abdomen; too small to characterize bilateral renal hypodensities; statistically likely cysts. No acute osseous abnormality is detected. Impression: Re-identified filling defect consistent with pulmonary embolus identified within the left lower lobe segmental branches. Findings discussed with Dr. Del Rio on 01/22/18 at 6:41 p.m.
[2018-01-22] MEDS ORDERED: Ergocalciferol 50,000 Intl Units Cap PO SCH (19:15)
[2018-01-22] MEDS: Heparin25000 units/250ml 1/2NS 25,000 UNITS/250 ML BAG IV PRN (19:23)
[2018-01-22] MEDS ORDERED: Sodium Chloride 0.9% 1,000 ML IV SCH (19:30)
[2018-01-22] MEDS: Levalbuterol 0.63 MG/3 ML Inhal Soln UD IH SCH (22:26)
[2018-01-22] MEDS ORDERED: Multivitamin (MVI) 10 ML, Thiamine 100 MG, Folic Acid 1 MG in Sodium Chloride 0.9% 1,00... IV ONE (22:41)
[2018-01-23] MEDS: Levalbuterol 0.63 MG/3 ML Inhal Soln UD IH SCH ×4 (01:48→20:00)
[2018-01-23 03:15] VITALS: BMI 22.3
[2018-01-23] MEDS: Pantoprazole 40 mg EC Tab PO SCH (05:27)
--- NOTE | 2018-01-23 06:05 | HP ---
HISTORY OF PRESENT ILLNESS: The patient is a 42-year-old female who presented to the emergency room after the patient had a routine CT scan of the chest with contrast showing pulmonary embolism. The patient was sent to the emergency room. Upon further investigation, the patient does complain of increasing shortness of breath. The patient was seen in the office recently for shortness of breath, on and off. Patient has had routine CT chest which shows pulmonary embolism. The patient also complained of left posterior rib cage pain. REVIEW OF SYSTEMS: A 13-system review was done, pertinent positive and negative dictated above. CODE STATUS: Full code. LIVING WILL ADVANCE DIRECTIVE: None. ALLERGIES: ARE TO LATEX, SHELLFISH DERIVATIVE. HEIGHT: 5 feet 6 inches. WEIGHT: 139. BMI: 24. HOME MEDICATIONS: None listed. SOCIAL HISTORY: Positive for daily alcohol use and daily beer drinking. Positive for smoking less than one pack per day for last 30 years. The patient denies any drug use or communicable transmissible disease. FAMILY HISTORY: Positive for hypertension and heart problems. 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 PAST MEDICAL AND SURGICAL HISTORY: History of peripheral vascular disease, history of angioplasty and stent placement, history of weight loss in the recent past and history of anorexia, history of recurrent pancreatitis, history of alcoholic pancreatitis, history of alcohol dependence and nicotine dependence, history of left foot MRSA infection, history of erythrocytosis, history of questionable iron deficiency, history of hypovitaminosis D, history of prediabetes, history of elevated CA 19-9, history of elevated carcinoembryonic antigen, history of bibasilar atelectasis, history of pancreatitis and pancreatic pseudocyst, history of peripheral vascular disease with endovascular stent graft extending from infrarenal abdominal aorta inferiorly to both iliac arteries, history of thickened urinary bladder, history of hepatomegaly, history of severe stenosis at the aortic bifurcation involving distal aorta and common iliac, history of left distal superficial femoral artery occlusion at the junction of the popliteal, history of severe stenosis of the distal aorta and proximal common iliac arteries bilaterally with occlusion of the distal left superficial femoral artery at the junction of the popliteal artery, history of aortoiliac disease, history of left superficial femoral artery, history of gastritis, history of abdominal aortic aneurysm bifurcated stent graft placement, history of noncompliance, history of hypertension, history of alcohol abuse, history of polycythemia, history of treatment with Eliquis which the patient is noncompliant, history of hyperlipidemia which the patient is noncompliant, history of left heel surgery, history of diabetes, history of being treated with Eliquis in 09/1999 which the patient is not taking. The patient was supposed to be on aspirin, Lipitor, metoprolol which the patient stopped. The patient's past medical history is also significant for history of internal and external hemorrhoids, history of colonic spasm, history of descending colon congestive mucosa, history of hiatal hernia, history of duodenopathy, history of duodenal erosion, history of prepyloric gastric erythema and antral erythema. PHYSICAL EXAMINATION: GENERAL: The patient is seen in stretcher #8 in the emergency room. VITAL SIGNS: T-max is 98.4. Telemetry shows sinus rhythm, heart rate 77, 85, 97; blood pressure 148/100, 150/88, 141/ 87; O2 sat 99%-100%. HEENT: Head: Normocephalic, atraumatic. HEENT examination shows pinkish pale conjunctivae. Anicteric sclerae. No oropharyngeal lesion. No neck rigidity. CHEST: Kyphosis. LUNGS: Examination shows positive rhonchi bilaterally, upper lung ugalde and lower lung ugalde. CARDIOVASCULAR: S1, S2, regular rhythm. Questionable soft systolic murmur at left sternal border, left second intercostal space, right second intercostal space. ABDOMEN: Soft. Positive bowel sounds. No hepatosplenomegaly noted. No guarding. No rigidity, no rebound tenderness. GENITALIA: Female. RECTAL: Examination is deferred. EXTREMITIES: Shows no pitting edema, no calf tenderness, no Homans' sign. MUSCULOSKELETAL: Examination shows a body mass index of 22.4. No gross deficit noted. NEUROLOGIC: The patient is alert, awake, oriented x3. Cranial nerves II-XII grossly intact. Gait examination is not tested. PSYCHIATRIC: Examination negative for anxiety and depression. Negative for suicidal and homicidal ideation. Negative for auditory or visual hallucination. DIAGNOSTICS: The patient's diagnostics reviewed. Hemoglobin/hematocrit 18 and 51, platelet 119, manual platelet pending. PT/PTT 12.6/26.6. Chemistry is significant for glucose of 131. Troponin is 0.29 which is indeterminate. The patient was seen in the emergency room. The patient had a CT angio done. The patient was seen by the emergency room by Dr. Del Rio. The patient had a CTA done which shows left lower lobe segmental branches pulmonary embolism. The patient's previous CAT scan from this morning was also reviewed. The patient's echocardiogram done. The patient was seen in the emergency room by the ER physician. The patient was started treatment with IV heparin with bolus and heparin drip was started in the emergency room by the ER physician. The patient was started on IV fluids and the patient was advised to be admitted. IMPRESSION: 1. Symptomatic left lower lobe segmental branch pulmonary embolism. 2. History of hypertension, hyperlipidemia, history of diabetes, history of peripheral vascular disease and aortoiliac disease and status post endovascular stent grafting. 3. History of nicotine and alcohol use and dependence. 4. History of erythrocytosis. 5. History of noncompliance with medication including Eliquis, metoprolol, Lipitor, aspirin, etc. 6. Thrombocytopenia. 7. Hyperglycemia. 8. Indeterminate troponin. PLAN: At this time, the patient's EKG which was ordered in the emergency room is pending. The patient has been ordered urine drug screen. Repeat CMP has been ordered, thyroid profile, hemoglobin A1c, lipid panel, LFTs, magnesium, serial troponin, vitamin D 25-hydroxy, factor V Leiden, antiphospholipid antibody, prothrombin gene analysis, fructosamine, GlycoMark, manual platelet count, CBCs, PT/PTT, platelet count has been ordered. Hematology evaluation ordered. RPR flow cytometry of the blood ordered. Next, the patient is on CIWA protocol with Ativan 1 mg IV every 4 p.r.n., IV fluids, banana bag at 100 mL an hour, clonidine 0.1 mg every 4 p.r.n., Colace 100 mg three times a day, trazodone 50 mg at bedtime p.r.n., Drisdol 50,000 units weekly, folic acid 1 mg daily, Haldol 2 mg IM every 8 hours p.r.n. Heparin drip has been ordered. Librium has been ordered. Librium protocol p.r.n. has been ordered. Nicotine patch has been ordered. Tylenol p.r.n., Xopenex nebulizer, Zofran 4 mg IV every 4. The patient has been ordered chest PT, venous Doppler of the lower extremity, incentive spirometry, oxygen 2 liters. Repeat EKG ordered. Heart-healthy diet, SCDs, LUKE stocking, alcohol withdrawal protocol. Occupational therapy, physical therapy ordered. Beta hCG has been ordered. At present, the patient will be resumed on all her medication as per the last discharge from [facility] ([facility] The patient will be resumed on Lipitor 40 mg p.o. daily. The patient's Eliquis will be resumed after patient is seen and evaluated by Hematology/Oncology. The patient's beta melissa at this time will be held because of active nicotine addiction and dependence. The patient's echocardiogram results will be reviewed when available. The patient's last discharge summary of 10/11/2017 was reviewed. The patient was discharged home on Eliquis 5 mg twice a day, aspirin 81 mg daily, Lipitor 40 mg daily, metoprolol 25 mg twice a day and Percocet which was for a very short duration. The patient will be resumed on aspirin and Lipitor, beta melissa at this time will be held as discussed above. The patient's new oral anticoagulant will be started after evaluation by Hematology/Oncology. At this time, the patient will be continued on IV heparin. The patient will also be started on vitamin D 50,000 units weekly. At present, the patient's overall prognosis is guarded because of the patient's multiple comorbidities and overall complicated medical condition. The patient has been updated about her condition, diagnosis, treatment plan, management plan. The patient was advised and counseled about cessation of smoking and alcohol. Dictated and electronically signed, not read. Baljit Burden MD
[2018-01-23 07:01] LABS: INR 1.1; PARTIAL THROMBOPLASTIN TIME 80.1 Seconds (25.1-36.5); PROTHROMBIN TIME 12.7 SECONDS (9.4-12.5)
[2018-01-23 07:10] LABS: TROPONIN I 0.08 ng/mL
[2018-01-23 07:17] LABS: ALB/GLOB RATIO 0.9 (1.1-1.8); ALBUMIN 3.3 g/dL (3.0-4.8); ALT/SGPT 16 U/L (7-56); AST/SGOT 21 U/L (14-36); BILIRUBIN,DIRECT 0.4 mg/dL (0.0-0.4); BLOOD UREA NITROGEN 11 mg/dL (7-21); CALCIUM 8.6 mg/dL (8.4-10.5); GFR NON-AFRICAN AMERICAN > 60; HDL CHOLESTEROL 41 mg/dL (29-60)
[2018-01-23 07:18] LABS: LDL CHOLESTEROL 50 mg/dL (0-129)
[2018-01-23 07:22] LABS: FREE T4 0.95 ng/dL (0.78-2.19)
[2018-01-23 08:14] LABS: BASO # 0.02 K/mm3 (0.0-2.0); BASO % 0.3 % (0.0-3.0); EOS % 0.3 % (1.5-5.0); GRAN # 4.08 (1.4-6.5); GRAN % 62.8 % (50.0-68.0); HEMOGLOBIN 17.1 g/dL (12.0-16.0); LYMPH # 1.8 (1.2-3.4); LYMPH % 27.5 % (22.0-35.0); MEAN CELL VOLUME 93.8 fl (80.0-105.0); MEAN CORPUSCULAR HEMOGLOBIN 32.3 pg (25.0-35.0); MEAN CORPUSCULAR HGB CONC 34.4 g/dl (31.0-37.0); MEAN PLATELET VOLUME 10.2 fl (7.0-11.0); MONO # 0.6 (0.1-0.6); MONO % 9.1 % (1.0-6.0); RBC 5.3 10^6/uL (3.5-6.1); RED CELL DISTRIBUTION WIDTH 13.5 % (11.5-14.5); WHITE BLOOD COUNT 6.5 10^3/ul (4.5-11.0)
--- NOTE | 2018-01-23 08:34 | US ---
HISTORY: Leg pain and swelling. Evaluate for DVT PHYSICIAN(S): Richie Sanches MD. TECHNIQUE: Duplex sonography and color-flow Doppler with graded compression were used to evaluate the deep venous systems of both lower extremities. FINDINGS: The visualized deep venous systems of both lower extremities are sonographically normal and compressible. Normal wave forms and augmentation are seen. There is no sonographic evidence for deep venous thrombosis in the visualized segments of both lower extremities. IMPRESSION: No sonographic evidence for deep venous thrombosis in the visualized segments of both lower extremities.
[2018-01-23] MEDS: Multivitamin With Minerals Tab PO SCH (11:00)
[2018-01-23 11:20] LABS: T4 4.8 ug/dL (5.5-11.0)
[2018-01-23 11:34] LABS: T3 0.9 ng/mL (0.97-1.69)
--- NOTE | 2018-01-23 11:47 | CARD ---
APPROVED REPORT Date of service: 01/23/2018 EKG Measurement Heart [id number] <Conclusion> Normal sinus rhythm Possible Left atrial enlargement Nonspecific T wave abnormality Prolonged QT Abnormal ECG
--- NOTE | 2018-01-23 11:51 | CARD ---
APPROVED REPORT Date of service: 01/22/2018 EKG Measurement Heart [id number] <Conclusion> Normal sinus rhythm Possible Left atrial enlargement Nonspecific T wave abnormality Abnormal ECG
[2018-01-23] MEDS ORDERED: Ceftaroline 600 MG in Sodium Chloride 0.9% 100 ML IVPB SCH (13:15)
--- NOTE | 2018-01-23 13:22 | CP.PCM.PN ---
Subjective - Date & Time of Evaluation Date of Evaluation: 01/23/18 Time of Evaluation: 13:18 - Subjective Subjective: PGY-[address] medicine progress note for Dr Burden No acute events noted overnight. She denied respiratory complaints or chest pain. She was concerned about a right hand wound she's had "for a while" - she saw a summer internship recently and was prescribed cirpo 500mg po bid for 10 days of which she completed 5 days. Otherwise did not offer any complaints. Objective - Vital Signs/Intake and Output Vital Signs (last 24 hours): Temp Pulse Resp BP Pulse Ox 98.3 F 75 18 135/91 H 97 01/23/18 12:00 01/23/18 12:00 01/23/18 12:00 01/23/18 12:00 01/23/18 06:00 Intake and Output: 01/23/18 01/23/18 06:59 18:59 Intake Total 1527 0 Balance 1527 0 - Medications Medications: Current Medications Acetaminophen (Tylenol 650 Mg Supp) 650 mg RC Q6H PRN PRN Reason: TEMP>=99.5F Acetaminophen (Tylenol 325mg Tab) 650 mg PO Q6H PRN PRN Reason: Headache Acetaminophen (Tylenol 650 Mg Supp) 650 mg RC Q6H PRN PRN Reason: Headache Aspirin (Ecotrin) 81 mg PO DAILY [facility] Chlordiazepoxide (Librium) 25 mg PO Q6 [facility]; Taper Stop: 01/26/18 22:44 Last Admin: 01/23/18 11:01 Dose: 25 mg Chlordiazepoxide (Librium) 25 mg PO Q4H PRN PRN Reason: Withdrawl Clonidine HCl (Catapres) 0.1 mg PO Q4H PRN PRN Reason: Symptoms of alcohol withdrawl Docusate Sodium (Colace) 100 mg PO TID [facility] Last Admin: 01/23/18 11:00 Dose: 100 mg Ergocalciferol (Drisdol 50,000 Intl Units Cap) 1 cap PO Q7D [facility] Last Admin: 01/22/18 22:26 Dose: 1 cap Folic Acid (Folic Acid) 1 mg PO DAILY [facility] Last Admin: 01/23/18 11:06 Dose: 1 mg Haloperidol Lactate (Haldol) 2 mg IM Q8H PRN PRN Reason: Agitation Heparin Sodium/Sodium Chloride (Heparin 89963 Units/250ml 1/2 Normal Saline) 25,000 units in 250 mls @ 11.349 mls/hr IV .Q22H2M PRN; Protocol PRN Reason: ADJUST RATE PER PROTOCOL Last Titration: 01/23/18 10:58 Dose: 13 units/kg/hr, 8.196 mls/hr Ceftaroline Fosamil 600 mg/ (Sodium Chloride) 100 mls @ 100 mls/hr IVPB Q12 [facility]; Protocol Stop: 01/24/18 10:59 Levalbuterol HCl (Xopenex) 0.63 mg IH [id number] [facility] Last Admin: 01/23/18 08:12 Dose: 0.63 mg Lorazepam (Ativan) 1 mg IVP Q4H PRN PRN Reason: Symptoms of alcohol withdrawl Multivitamins/Minerals (Therapeutic-M Tab) 1 tab PO DAILY [facility] Last Admin: 01/23/18 11:00 Dose: 1 tab Mupirocin (Bactroban Ointment) 0 gm TOP BID [facility] Nicotine (Nicoderm Cq) 1 patch TD DAILY [facility] Last Admin: 01/23/18 11:02 Dose: 1 patch Ondansetron HCl (Zofran Inj) 4 mg IVP Q4H PRN PRN Reason: Nausea/Vomiting Pantoprazole Sodium (Protonix Ec Tab) 40 mg PO 0600 [facility] Last Admin: 01/23/18 05:27 Dose: 40 mg Thiamine HCl (Vitamin B1 Tab) 100 mg PO DAILY [facility] Last Admin: 01/23/18 11:00 Dose: 100 mg Trazodone HCl (Desyrel) 50 mg PO HS PRN PRN Reason: Insomnia - Labs Labs: 01/23/18 06:00 01/23/18 06:00 PT 12.7 SECONDS (9.4-12.5) H 01/23/18 06:00 INR 1.10 01/23/18 06:00 APTT 82.2 Seconds (25.1-36.5) H 01/23/18 09:45 - Constitutional Appears: Well, Non-toxic, No Acute Distress - Head Exam Head Exam: ATRAUMATIC, NORMAL INSPECTION - Eye Exam Eye Exam: EOMI, Normal appearance, PERRL. absent: Scleral icterus - ENT Exam ENT Exam: Mucous Membranes Moist - Neck Exam Neck Exam: Full ROM, Normal Inspection. absent: Tenderness - Respiratory Exam Respiratory Exam: Clear to Ausculation Bilateral, NORMAL BREATHING PATTERN. absent: Rhonchi, Wheezes, Respiratory Distress - Cardiovascular Exam Cardiovascular Exam: Tachycardia, REGULAR RHYTHM, +S1, +S2. absent: JVD - GI/Abdominal Exam GI & Abdominal Exam: Soft, Normal Bowel Sounds. absent: Distended, Firm, Guarding, Tenderness - Extremities Exam Extremities Exam: Full ROM, Normal Capillary Refill, Normal Inspection. absent: Calf Tenderness, Tenderness - Neurological Exam Neurological Exam: Alert, Awake, Oriented x3 - Skin Skin Exam: Dry, Normal Color, Warm Additional comments: right hand with 1 inch circumscribed lesion crusted over, no pus, non- erythematous, no swelling Assessment and Plan - Assessment and Plan (Free Text) Plan: 42 year old female with peripheral arterial disease (2 stents in aorta), internal hemorrhoids alcohol use disorder and pancreatitis presented to the ED after being sent by her PMD Dr Burden for evidence of PE discovered on her CT Chest: Left Lower Lobe Pulmonary Embolism -echo, pending official report -ekg shows nsr, regular rate, no evidence for right heart strain -LE ultrasound did not show evidence for DVT -CT chest w/ and w/o contrast 01/20 (performed prior to admission): * A nonocclusive embolus can be seen in the left lower lobe pulmonary artery. There are no large central emboli. The lungs are clear with no mass or nodule. -CTA chest 01/22: * Re-identified filling defect consistent with pulmonary embolus identified within the left lower lobe segmental branches. -consult heme/onc Dr Ghosh -f/u factor v leiden, antiphospholipid antibody -heparin drip PE protocol Polycythemia Vera -peripheral blood flow cytometry 01/22: * no immunophenotypic evidence for abnormal myeloid maturation, an increase in blasts, or lymphoproliferative disorder -iron studies indicative of iron deficiency with resulting high erythropoietin Right Hand Lesion -1 inch circumscribed lesion in right palm - no swelling, no redness, no pus -cannot recall how lesion occurred; prior to admission was Rx'd 10 day course of cipro - patient completed 5 days -hx of MRSA in 07/2017 -f/u would culture -treat empirically with teflaro 600mg iv q12h -mupirocin topical to affected area bid -consult infectious disease, Dr Hernandez Alcohol Use Disorder -abdominal ultrasound shows increased echogenecity of the liver otherwise normal findings -librium taper -ciwa, seizure precautions, aspiration precautions -clonidine 0.1mg po q4h for symptoms related to alcohol withdrawal -haldol 2mg im q8h prn for hallucination/agitation -mv, folic acid, thiamine -trazodone 50mg po hs prn for insomnia Pancreatitis, Resolved -Hx of pancreatitis and alcohol use disorder -Lipase and amyalse elevated on admission now normalized Pre-Diabetes -HgbA1c 6.2 -f/u fuctosamine and glycomark -aspirin 81mg po qd for primary prevention Vitamin D Deficiency -Low 25-OH vitamin d -ergocalciferol 50,000IU 1 cap po q7d Low T4 -normal TSH -thyroglobulin antibody negative -f/u T3 Tobacco Abuse -nicotine 21mg/24hr 1 patch td qd PPX -already on heparin drip PE protocol -SCDs -PT/OT -heart healthy diet
--- NOTE | 2018-01-23 15:07 | PN ---
DATE: 01/23/2018 SUBJECTIVE: The patient is seen lying in the bed in room 267, bed 2. The patient is comfortable. The patient denies any bleeding. Overnight events were noted. Telemetry shows sinus rhythm. Overnight nurse's notes were reviewed. No adverse events were noted. PHYSICAL EXAMINATION VITAL SIGNS: T-max 98.4; pulse 74, 75; blood pressure 135/83, 142/79, 141/87; respiration 18-20; O2 sat 97%-98%. HEENT: Normocephalic, atraumatic. Shows pink conjunctivae. Anicteric sclerae. No oropharyngeal lesion. NECK: No neck rigidity. CHEST: Kyphosis. LUNGS: Shows occasional rhonchi in the upper lung ugalde. CARDIOVASCULAR: S1 and S2, regular rhythm. ABDOMEN: Soft. Positive bowel sound. GENITALIA: Female. RECTAL: Deferred. EXTREMITIES: Shows no pitting edema, no calf tenderness, no Homans' sign. NEUROLOGICAL: The patient is alert, awake, oriented x3. Cranial nerves II through XII intact. Gait examination is not tested. VASCULAR: Palpable pulses. Body mass index of 22. DIAGNOSTICS: 01/23/2018, hemoglobin and hematocrit 17.1 and 49.7, platelet 115,000. Monocytes are 9.1. PT and PTT is 12.7, 80, 82. CMP and LFT shows glucose of 121, troponin is 0.08, cholesterol 111, LDL 50, HDL 41, thyroid panel is within normal limit. EKG from today is reviewed. The patient's echocardiogram done as an outpatient on 01/20/2018, the report is still pending. Venous Doppler of the lower extremity was negative. IMPRESSION AND PLAN: 1. Possible and questionable unprovoked symptomatic left lower segmental branches of pulmonary embolism. 2. History of noncompliance. 3. History of hypertension, hyperlipidemia, diabetes. History of peripheral vascular disease and aortoiliac disease status post endovascular stent grafting. 4. Active nicotine and alcohol use and dependence. 5. Erythrocytosis. 6. Thrombocytopenia, etiology undetermined. 7. Transient monocytosis. 8. Hyperglycemia. 9. Indeterminate troponin. 10. Abnormal electrocardiogram. 11. History of pancreatitis. Plan at this time, the patient has been ordered continuation of the IV anticoagulation. The patient was supposed to be on Eliquis upon her last discharge from 09/2017, but the patient did not continue her Eliquis. The patient has been ordered repeat serial labs. Hypercoagulable workup ordered by Hematology. Current consultation; Hematology, Oncology, Cardiology. The patient's RPR is pending. Current medications; the patient is on CIWA protocol. The patient is Colace 100 three times a day, Drisdol 50,000 weekly, Ecotrin 81 mg daily. The patient has been ordered hypercoagulable workup which is pending. The patient is on heparin drip. Librium protocol, CIWA protocol. Nebulizer medication, chest PT and incentive spirometry, heart healthy diet. At present, we are awaiting evaluation by Hematology, Oncology and Cardiology. The patient's further management will be depended upon the patient's clinical condition, hemodynamic status and as per the patient's response to therapeutic intervention, as per the patient's diagnostic test results and as per recommendations by all the above physician involved in the care of the patient. The patient has been updated about her condition, diagnoses, treatment plan, management plan, and all questions concerned answered. Dictated and electronically signed, not read. Baljit Burden MD
--- NOTE | 2018-01-23 15:11 | CP.PCM.CON ---
History of Present Illness - History of Present Illness History of Present Illness: 42 year old female with a history of tobacco abuse, PAD s/p arterial stenting, admitted with pulmonary embolism. The patient notes to some shortness of breath. She had a noncontrast CT chest by her PMD which revealed PE and was instructed to report to the hospital. A CT angio of the chest was consistent with a left lower lobe PE. B/L lower extremitsupplementation. Past medical history: PAD s/p arterial stenting, tobacco abuse Past surgical history: foot surgery Family history: Mother had CVA in her 40s Social history: 6-10 cigarettes daily x 30 years, drinks beer daily, denies illicit drug use. Allergies: Latex, shellfish Review of systems: All remaining review of systems including HEENT, cardiovascular, respiratory, gastrointestinal, genitourinary, musculoskeletal, dermatologic, neurologic, and psychiatric are negative unless mentioned in the HPI. Past Patient History - Infectious Disease Hx of Infectious Diseases: None - Tetanus Immunizations Tetanus Immunization: Up to Date - Past Medical History & Family History Past Medical History?: Yes - Past Social History Smoking Status: Current Some Days Smoker - CARDIAC Hx Cardiac Disorders: Yes (2 stents in Aorta) Hx Hypercholesterolemia: Yes (Hyperlipidemia,) Hx Hypertension: Yes - PULMONARY Hx Respiratory Disorders: No - NEUROLOGICAL Hx Neurological Disorder: No - HEENT Hx HEENT Problems: Yes (eyeglasses) - RENAL Hx Chronic Kidney Disease: No - ENDOCRINE/METABOLIC Hx Diabetes Mellitus Type 2: (Hyperglycemia) - HEMATOLOGICAL/ONCOLOGICAL Hx Blood Disorders: No - INTEGUMENTARY Other/Comment: right hand infection - MUSCULOSKELETAL/RHEUMATOLOGICAL Hx Falls: No - GASTROINTESTINAL Hx Pancreatitis: Yes Hx Ulcer: Yes (left foot ulcer 08/02) Other/Comment: gastritis - GENITOURINARY/GYNECOLOGICAL Hx Genitourinary Disorders: Yes (irregular periods) - PSYCHIATRIC Hx Substance Use: No Other/Comment: etoh- 6 pack of beer daily - SURGICAL HISTORY Other/Comment: left heel surgical repair, baloon angioplasty of aortia and iliac bilaterally 10/10/17 in vascular - ANESTHESIA Hx Anesthesia: Yes Hx Anesthesia Reactions: No Hx Malignant Hyperthermia: No Meds Allergies/Adverse Reactions: Allergies Allergy/AdvReac Type Severity Reaction Status Date / Time latex Allergy Severe RASH Verified 11/24/17 16:54 shellfish derived Allergy Severe SHORTNESS Verified 11/24/17 16:54 OF BREATH - Medications Medications: Current Medications Acetaminophen (Tylenol 650 Mg Supp) 650 mg RC Q6H PRN PRN Reason: TEMP>=99.5F Acetaminophen (Tylenol 325mg Tab) 650 mg PO Q6H PRN PRN Reason: Headache Acetaminophen (Tylenol 650 Mg Supp) 650 mg RC Q6H PRN PRN Reason: Headache Aspirin (Ecotrin) 81 mg PO DAILY [facility] Chlordiazepoxide (Librium) 25 mg PO Q6 [facility]; Taper Stop: 01/26/18 22:44 Last Admin: 01/23/18 11:01 Dose: 25 mg Chlordiazepoxide (Librium) 25 mg PO Q4H PRN PRN Reason: Withdrawl Clonidine HCl (Catapres) 0.1 mg PO Q4H PRN PRN Reason: Symptoms of alcohol withdrawl Docusate Sodium (Colace) 100 mg PO TID [facility] Last Admin: 01/23/18 11:00 Dose: 100 mg Ergocalciferol (Drisdol 50,000 Intl Units Cap) 1 cap PO Q7D [facility] Last Admin: 01/22/18 22:26 Dose: 1 cap Folic Acid (Folic Acid) 1 mg PO DAILY [facility] Last Admin: 01/23/18 11:06 Dose: 1 mg Haloperidol Lactate (Haldol) 2 mg IM Q8H PRN PRN Reason: Agitation Heparin Sodium/Sodium Chloride (Heparin 38060 Units/250ml 1/2 Normal Saline) 25,000 units in 250 mls @ 11.349 mls/hr IV .Q22H2M PRN; Protocol PRN Reason: ADJUST RATE PER PROTOCOL Last Titration: 01/23/18 10:58 Dose: 13 units/kg/hr, 8.196 mls/hr Ceftaroline Fosamil 600 mg/ (Sodium Chloride) 100 mls @ 100 mls/hr IVPB Q12 [facility]; Protocol Stop: 01/24/18 10:59 Levalbuterol HCl (Xopenex) 0.63 mg IH [id number] [facility] Last Admin: 01/23/18 13:42 Dose: 0.63 mg Lorazepam (Ativan) 1 mg IVP Q4H PRN PRN Reason: Symptoms of alcohol withdrawl Multivitamins/Minerals (Therapeutic-M Tab) 1 tab PO DAILY [facility] Last Admin: 01/23/18 11:00 Dose: 1 tab Mupirocin (Bactroban Ointment) 0 gm TOP BID [facility] Nicotine (Nicoderm Cq) 1 patch TD DAILY [facility] Last Admin: 01/23/18 11:02 Dose: 1 patch Ondansetron HCl (Zofran Inj) 4 mg IVP Q4H PRN PRN Reason: Nausea/Vomiting Pantoprazole Sodium (Protonix Ec Tab) 40 mg PO 0600 [facility] Last Admin: 01/23/18 05:27 Dose: 40 mg Thiamine HCl (Vitamin B1 Tab) 100 mg PO DAILY [facility] Last Admin: 01/23/18 11:00 Dose: 100 mg Trazodone HCl (Desyrel) 50 mg PO HS PRN PRN Reason: Insomnia Physical Exam - Head Exam Head Exam: ATRAUMATIC - Eye Exam Eye Exam: Normal appearance - ENT Exam ENT Exam: Mucous Membranes Dry - Respiratory Exam Respiratory Exam: NORMAL BREATHING PATTERN - Cardiovascular Exam Cardiovascular Exam: +S1, +S2 - GI/Abdominal Exam GI & Abdominal Exam: Normal Bowel Sounds - Extremities Exam Extremities exam: Positive for: normal inspection - Neurological Exam Neurological exam: Oriented x3 - Psychiatric Exam Psychiatric exam: Normal Affect, Normal Mood - Skin Skin Exam: Warm Results - Vital Signs Recent Vital Signs: Last Vital Signs Temp 98.3 F 01/23/18 12:00 Pulse 75 01/23/18 12:00 Resp 18 01/23/18 12:00 BP 135/91 H 01/23/18 12:00 Pulse Ox 97 01/23/18 06:00 - Labs Result Diagrams: 01/23/18 06:00 01/23/18 06:00 Labs: Laboratory Results - last 24 hr 01/22/18 01/22/18 01/22/18 17:25 17:25 17:25 WBC 6.0 RBC 5.54 Hgb 18.0 H Hct 50.9 H MCV 91.9 MCH 32.5 MCHC 35.4 RDW 13.7 Plt Count 119 L Manual Plt Count MPV 10.4 Gran % 64.7 Lymph % (Auto) 22.5 Burnett % (Auto) 11.8 H Eos % (Auto) 0.8 L Baso % (Auto) 0.2 Gran # 3.85 Lymph # (Auto) 1.3 Burnett # (Auto) 0.7 H Eos # (Auto) 0.1 Baso # (Auto) 0.01 PT 12.6 H INR 1.10 APTT 26.6 Sodium 135 Potassium 4.0 Chloride 105 Carbon Dioxide 24 Anion Gap 10 BUN 9 Creatinine 0.8 Est GFR ( Amer) > 60 Est GFR (Non-Af Amer) > 60 Random Glucose 131 H Hemoglobin A1c Calcium 8.8 Phosphorus Magnesium Total Bilirubin 0.9 Direct Bilirubin AST 31 ALT 17 Alkaline Phosphatase 80 Troponin I Total Protein 6.9 Albumin 3.3 Globulin 3.5 Albumin/Globulin Ratio 0.9 L Triglycerides Cholesterol LDL Cholesterol Direct HDL Cholesterol 25-OH Vitamin D Total Free T4 Thyroxine (T4) Total T3 TSH 3rd Generation Beta HCG, Quant 01/22/18 01/23/18 01/23/18 19:55 01:58 01:58 WBC RBC Hgb Hct MCV MCH MCHC RDW Plt Count Manual Plt Count 80 L MPV Gran % Lymph % (Auto) Burnett % (Auto) Eos % (Auto) Baso % (Auto) Gran # Lymph # (Auto) Burnett # (Auto) Eos # (Auto) Baso # (Auto) PT INR APTT Sodium Potassium Chloride Carbon Dioxide Anion Gap BUN Creatinine Est GFR ( Amer) Est GFR (Non-Af Amer) Random Glucose Hemoglobin A1c Calcium Phosphorus Magnesium Total Bilirubin Direct Bilirubin AST ALT Alkaline Phosphatase Troponin I 0.09 D 0.08 Total Protein Albumin Globulin Albumin/Globulin Ratio Triglycerides Cholesterol LDL Cholesterol Direct HDL Cholesterol 25-OH Vitamin D Total Free T4 Thyroxine (T4) Total T3 TSH 3rd Generation Beta HCG, Quant 01/23/18 01/23/18 01/23/18 01:58 01:58 06:00 WBC RBC Hgb Hct MCV MCH MCHC RDW Plt Count Manual Plt Count MPV Gran % Lymph % (Auto) Burnett % (Auto) Eos % (Auto) Baso % (Auto) Gran # Lymph # (Auto) Burnett # (Auto) Eos # (Auto) Baso # (Auto) PT INR APTT 179.2 H* Sodium 136 Potassium 4.0 Chloride 106 Carbon Dioxide 24 Anion Gap 10 BUN 11 Creatinine 0.8 Est GFR ( Amer) > 60 Est GFR (Non-Af Amer) > 60 Random Glucose 121 H Hemoglobin A1c Calcium 8.6 Phosphorus 3.4 Magnesium 1.7 Total Bilirubin 1.1 Direct Bilirubin 0.4 AST 21 ALT 16 Alkaline Phosphatase 78 Troponin I 0.08 Total Protein 6.9 Albumin 3.3 Globulin 3.6 Albumin/Globulin Ratio 0.9 L Triglycerides 79 Cholesterol 111 L LDL Cholesterol Direct 50 HDL Cholesterol 41 25-OH Vitamin D Total Free T4 Thyroxine (T4) Total T3 TSH 3rd Generation Beta HCG, Quant < 2.39 01/23/18 01/23/18 01/23/18 06:00 06:00 06:00 WBC 6.5 RBC 5.30 Hgb 17.1 H Hct 49.7 H MCV 93.8 MCH 32.3 MCHC 34.4 RDW 13.5 Plt Count 98 L Manual Plt Count 115 L MPV 10.2 Gran % 62.8 Lymph % (Auto) 27.5 Burnett % (Auto) 9.1 H Eos % (Auto) 0.3 L Baso % (Auto) 0.3 Gran # 4.08 Lymph # (Auto) 1.8 Burnett # (Auto) 0.6 Eos # (Auto) 0.0 Baso # (Auto) 0.02 PT 12.7 H INR 1.10 APTT 80.1 H Sodium Potassium Chloride Carbon Dioxide Anion Gap BUN Creatinine Est GFR ( Amer) Est GFR (Non-Af Amer) Random Glucose Hemoglobin A1c Calcium Phosphorus Magnesium Total Bilirubin Direct Bilirubin AST ALT Alkaline Phosphatase Troponin I Total Protein Albumin Globulin Albumin/Globulin Ratio Triglycerides Cholesterol LDL Cholesterol Direct HDL Cholesterol 25-OH Vitamin D Total Free T4 0.95 Thyroxine (T4) Total T3 TSH 3rd Generation 3.32 Beta HCG, Quant 01/23/18 01/23/18 01/23/18 06:00 06:00 06:30 WBC RBC Hgb Hct MCV MCH MCHC RDW Plt Count Manual Plt Count MPV Gran % Lymph % (Auto) Burnett % (Auto) Eos % (Auto) Baso % (Auto) Gran # Lymph # (Auto) Burnett # (Auto) Eos # (Auto) Baso # (Auto) PT INR APTT Sodium Potassium Chloride Carbon Dioxide Anion Gap BUN Creatinine Est GFR ( Amer) Est GFR (Non-Af Amer) Random Glucose Hemoglobin A1c 6.2 Calcium Phosphorus Magnesium Total Bilirubin Direct Bilirubin AST ALT Alkaline Phosphatase Troponin I Total Protein Albumin Globulin Albumin/Globulin Ratio Triglycerides Cholesterol LDL Cholesterol Direct HDL Cholesterol 25-OH Vitamin D Total < 12.8 L Free T4 Thyroxine (T4) 4.8 L Total T3 0.90 L TSH 3rd Generation Beta HCG, Quant 01/23/18 09:45 WBC RBC Hgb Hct MCV MCH MCHC RDW Plt Count Manual Plt Count MPV Gran % Lymph % (Auto) Burnett % (Auto) Eos % (Auto) Baso % (Auto) Gran # Lymph # (Auto) Burnett # (Auto) Eos # (Auto) Baso # (Auto) PT INR APTT 82.2 H Sodium Potassium Chloride Carbon Dioxide Anion Gap BUN Creatinine Est GFR ( Amer) Est GFR (Non-Af Amer) Random Glucose Hemoglobin A1c Calcium Phosphorus Magnesium Total Bilirubin Direct Bilirubin AST ALT Alkaline Phosphatase Troponin I Total Protein Albumin Globulin Albumin/Globulin Ratio Triglycerides Cholesterol LDL Cholesterol Direct HDL Cholesterol 25-OH Vitamin D Total Free T4 Thyroxine (T4) Total T3 TSH 3rd Generation Beta HCG, Quant Assessment & Plan (1) Pulmonary embolism Assessment and Plan: unprovoked agree with therapeutic anticoagulation will send inherited thrombophilia w/u (protein C+S and antithrombin III levels to be checked at a later date as may be low in acute clot) Status: Acute (2) Polycythemia Assessment and Plan: likely related to tobacco abuse JAK2 negative and erythropoietin level elevated; likely secondary polycythemia Status: Acute (3) Thrombocytopenia Assessment and Plan: mild may be consumptive from acute clot if plt count continues to drop, may have to stop heparin and use alternate anticoagulation and rule out HIT Status: Acute (4) Coagulopathy Assessment and Plan: secondary to anticoagulation Status: Acute (5) Tobacco abuse Assessment and Plan: smoking cessation discussed at length Thank you for this interesting consult. Status: Acute
[2018-01-23] MEDS: Mupirocin 2% Ointment 15 GM TUBE TOP SCH (17:29)
[2018-01-23 19:01] LABS: PH,URINE 5.5 (4.7-8.0); URINE BILIRUBIN NEGATIVE (NEGATIVE); URINE BLOOD MODERATE (NEGATIVE); URINE GLUCOSE (UA) 100 mg/dL (NEGATIVE); URINE LEUKOCYTE ESTERASE LARGE Leu/uL (NEGATIVE); URINE PROTEIN NEGATIVE mg/dL (<30 mg/dL)
[2018-01-23 19:05] LABS: URINE APPEARANCE CLEAR (CLEAR); URINE COLOR YELLOW (YELLOW)
[2018-01-23 19:08] LABS: HCG,QUALITATIVE URINE NEGATIVE (NEGATIVE)
[2018-01-23 19:18] LABS: URINE AMORPHOUS SEDIMENT FEW; URINE BACTERIA MANY (NEG); URINE EPITHELIAL CELLS MANY /hpf (0-5); URINE RBC TNTC /hpf (0-2); URINE WBC TNTC /hpf (0-6)
--- NOTE | 2018-01-23 20:37 | CON ---
DATE: 01/23/2018 CARDIOLOGY CONSULTATION HISTORY: The patient is a 42-year-old woman who presents with exertional dyspnea. She was found to have a pulmonary embolism on CT scan and was brought back for anticoagulation. The patient's past medical history includes documented peripheral vascular disease with a history of bifurcating distal aortic stenting done recently. She suffers from peripheral vascular disease. Her risk factors includes smoking as well as hypertension. She denies diabetes mellitus. SOCIAL HISTORY: The patient is an active smoker. REVIEW OF SYSTEMS: A 14 point review of systems was reviewed. Other than dyspnea, she denies any other cardiac symptomatology. PHYSICAL EXAMINATION: VITAL SIGNS: Blood pressure is 135/83, heart rate is in the 80s. NECK: Negative JVD. LUNGS: Without rales. HEART: S1, S2. EXTREMITIES: Warm bilaterally. No edema noted. LABORATORY DATA: Include an EKG that shows normal sinus rhythm with diffuse ST-T flattening. Hemoglobin is 17.1. Chemistries: BUN and creatinine are unremarkable. Glucose is 121. Troponin is 0.08. IMPRESSION: 1. Subacute pulmonary embolism. 2. Hypertension. 3. Chronic obstructive pulmonary disease. 4. Peripheral vascular disease. 5. Recent stenting of the lower abdominal aorta. Given these findings, the patient is scheduled for a coagulopathy workup. The patient will need long-term anticoagulation. I have discussed with the patient about the need to stop smoking. The patient will need to rule out coronary disease once her pulmonary embolism is resolved. Richie Peck MD
[2018-01-23] MEDS: Sodium Chloride 0.45% 1,000 ML IV SCH (22:13)
[2018-01-23] MEDS: Ceftaroline 600 MG in Sodium Chloride 0.9% 100 ML IVPB SCH (22:13)
[2018-01-23] MEDS: PREMIXED IVPB SCH (22:59)
[2018-01-23] MEDS: NS 100 MG IVPB SCH (22:59)
[2018-01-23] MEDS: FLUCONAZOLE IVPB SCH (22:59)
[2018-01-24] MEDS: Heparin25000 units/250ml 1/2NS 25,000 UNITS/250 ML BAG IV PRN (00:26)
[2018-01-24 02:23] LABS: URINE BILIRUBIN NEGATIVE (NEGATIVE); URINE BLOOD MODERATE (NEGATIVE); URINE GLUCOSE (UA) NEGATIVE (NEGATIVE); URINE LEUKOCYTE ESTERASE LARGE Leu/uL (NEGATIVE); URINE PROTEIN NEGATIVE mg/dL (<30 mg/dL); URINE UROBILINOGEN 0.2 E.U./dL (<1 E.U./dL)
[2018-01-24 02:24] LABS: URINE APPEARANCE CLOUDY (CLEAR); URINE COLOR YELLOW (YELLOW)
[2018-01-24 02:33] LABS: URINE EPITHELIAL CELLS MANY /hpf (0-5); URINE WBC TNTC /hpf (0-6)
[2018-01-24 02:34] LABS: URINE BACTERIA MOD (NEG)
[2018-01-24] MEDS: Levalbuterol 0.63 MG/3 ML Inhal Soln UD IH SCH ×3 (02:40→20:36)
[2018-01-24 02:46] LABS: BARBITURATES, UR NEGATIVE (NEGATIVE); BENZODIAZEPINES, UR POSITIVE (NEGATIVE); OPIATES, UR NEGATIVE (NEGATIVE); PHENCYCLIDINE, UR NEGATIVE (NEGATIVE)
[2018-01-24] MEDS: Pantoprazole 40 mg EC Tab PO SCH (05:10)
[2018-01-24 06:24] LABS: BASO # 0.01 K/mm3 (0.0-2.0); BASO % 0.2 % (0.0-3.0); EOS # 0.1 (0.0-0.7); EOS % 1.3 % (1.5-5.0); GRAN # 2.36 (1.4-6.5); HEMOGLOBIN 15.6 g/dL (12.0-16.0); LYMPH # 1.8 (1.2-3.4); LYMPH % 38.8 % (22.0-35.0); MEAN CELL VOLUME 93.3 fl (80.0-105.0); MEAN CORPUSCULAR HEMOGLOBIN 31.8 pg (25.0-35.0); MEAN CORPUSCULAR HGB CONC 34.1 g/dl (31.0-37.0); MEAN PLATELET VOLUME 10.1 fl (7.0-11.0); MONO # 0.4 (0.1-0.6); MONO % 7.7 % (1.0-6.0); RBC 4.91 10^6/uL (3.5-6.1); RED CELL DISTRIBUTION WIDTH 13.5 % (11.5-14.5); WHITE BLOOD COUNT 4.5 10^3/ul (4.5-11.0)
[2018-01-24 06:28] LABS: INR 1.12; PARTIAL THROMBOPLASTIN TIME 70.9 Seconds (25.1-36.5); PROTHROMBIN TIME 12.9 SECONDS (9.4-12.5)
[2018-01-24 07:06] LABS: ALB/GLOB RATIO 0.8 (1.1-1.8); ALBUMIN 2.6 g/dL (3.0-4.8); ALT/SGPT 18 U/L (7-56); AST/SGOT 18 U/L (14-36); BILIRUBIN,DIRECT 0.2 mg/dL (0.0-0.4); BLOOD UREA NITROGEN 10 mg/dL (7-21); CALCIUM 8.2 mg/dL (8.4-10.5); GFR NON-AFRICAN AMERICAN > 60
--- NOTE | 2018-01-24 08:41 | RAD ---
PROCEDURE: Right Hand Radiographs. HISTORY: CELLULITIS COMPARISON: None. FINDINGS: BONES: Normal. No fracture. JOINTS: Normal. No osteoarthritic changes. SOFT TISSUES: Normal. OTHER FINDINGS: None. IMPRESSION: Normal right hand radiographs.
[2018-01-24] MEDS: Magnesium Sulfate 2 gm/50 ml 2 GM/50 ML BAG IVPB SCH ×2 (08:46→15:29)
--- NOTE | 2018-01-24 09:16 | CARD ---
APPROVED REPORT Date of service: 01/24/2018 EKG Measurement Heart [id number] <Conclusion> Normal sinus rhythm with sinus arrhythmia Non Specific ST_T Changes.
--- NOTE | 2018-01-24 11:15 | PN ---
DATE: 01/24/2018 CARDIOLOGY FOLLOWUP SUBJECTIVE: The patient is clinically unchanged. PHYSICAL EXAMINATION: VITAL SIGNS: Blood pressure is 132/83, heart rate is in the 60's. Physical exam is unchanged. LABORATORY DATA: Hemoglobin is 15.6, BUN and creatinine are unremarkable, glucose is 111. PTT is 70.9. IMPRESSION: 1. Subacute pulmonary embolism. 2. Chronic obstructive pulmonary disease. 3. Rule out coagulopathy. 4. Hypertension. 5. Peripheral vascular disease. PLAN: Given these findings, the patient is currently in isolation for MRSA. We will need to obtain WILL's once her MRSA isolation is over. Richie Peck MD
[2018-01-24] MEDS: Mupirocin 2% Ointment 15 GM TUBE TOP SCH ×2 (11:29→18:13)
[2018-01-24] MEDS: NS 100 MG IVPB SCH (11:30)
[2018-01-24] MEDS: PREMIXED IVPB SCH (11:30)
[2018-01-24] MEDS: FLUCONAZOLE IVPB SCH (11:30)
[2018-01-24] MEDS: Multivitamin With Minerals Tab PO SCH (11:54)
[2018-01-24] MEDS: Ceftaroline 600 MG in Sodium Chloride 0.9% 100 ML IVPB SCH ×2 (12:53→21:38)
--- NOTE | 2018-01-24 13:08 | PN ---
DATE: 01/24/2018 SUBJECTIVE: The patient was seen in room 267, bed 2. Overnight nurse's notes were reviewed. The patient continued to be on CIWA protocol. The patient complained of insomnia for which the patient was given trazodone with positive sleep. The patient denies any chest pain or shortness of breath at present. Denies any nausea, vomiting, diarrhea or constipation. Denies bleeding. PHYSICAL EXAMINATION: VITAL SIGNS: T-max temperature 97.8. Telemetry shows sinus rhythm, heart rate in 60s and 70s. Blood pressure 132/83. The patient slept well. Respiration 20, O2 sat 100%. HEENT: Head examination normocephalic, atraumatic. HEENT examination shows pink conjunctivae. Anicteric sclerae. No oropharyngeal lesion. No neck rigidity. CHEST: Kyphosis. LUNGS: Shows positive rhonchi, left more than the right. CARDIOVASCULAR: S1, S2, regular rhythm. No audible murmur, gallop or rub. ABDOMEN: Soft. Positive bowel sound. No hepatosplenomegaly palpable. GENITALIA: Female. RECTAL: Deferred. EXTREMITY: Shows no pitting edema, no calf tenderness, no Homans' sign. NEUROLOGICAL: The patient is alert, awake, oriented x3. Cranial nerves II through XII intact. SKIN: Positive right hand finger ulceration noted, which is in healing stage. PSYCHIATRIC: Negative for anxiety, depression. Negative for suicidal OR homicidal ideation. Negative for auditory or visual hallucinations. DIAGNOSTICS: From 01/24/2018, WBC 4.5, hemoglobin and hematocrit 15.6 and 45.8, platelet 106, manual platelet pending. PT, PTT 12.9, 71. Hemoglobin A1c 6.2. Urinalysis shows blood, pyuria and funguria of yeast. Urine drug screen positive for cannabinoids and benzodiazepines. The patient's echocardiogram result is still pending, which was done as an outpatient on 01/20/2018. IMPRESSION AND PLAN: 1. Unprovoked left lower lobe segmental branches pulmonary embolism. 2. History of hypertension, questionable history of diabetes. 3. Prediabetes. 4. History of hyperlipidemia. 5. Relative thrombocytopenia. 6. Prediabetes with hemoglobin A1c 6.2. 7. Microscopic hematuria. 8. Pyuria, bacteriuria. 9. Funguria. 10. Active nicotine, alcohol and cannabinoids use with urine drug screen positive for cannabinoids and benzodiazepine. 11. History of peripheral vascular disease with endovascular abdominal aortic aneurysm graft. 12. History of pancreatitis. 13. Hypomagnesemia. The patient's chemistry, CMP and LFTs are now available. The patient's magnesium is 1.6. Chemistry, LFTs are normal. At present, the patient will be continued on the therapeutic intervention as per the MAR. The patient was seen by Hematology/Oncology, Cardiology, their recommendations noted. Magnesium sulfate riders x2 ordered. The patient is to be continued on IV heparin. We are awaiting further recommendation by Hematology regarding transition from intravenous heparin to oral anticoagulant as recommended by Hematology/Oncology and the timing of initiation of oral anticoagulant. The patient is started on IV Teflaro for right hand finger cellulitis. The patient at this time has been started on IV Diflucan. Urine cultures are pending. The patient is to be continued on CIWA protocol. The patient is continued on both gastrointestinal, deep venous thrombosis prophylaxes. The patient is already on IV heparin. At this time, the patient's echocardiogram done as an outpatient is still pending for the final results. The patient has been updated about her condition, diagnoses, diagnostic test results, recommendation by all the physicians involved in the care of the patient. All of the above is discussed and explained to the patient in layman's language. All questions concerned answered. Dictated and electronically signed, not read. Baljit Burden MD
--- NOTE | 2018-01-24 16:31 | CP.PCM.CON ---
History of Present Illness - History of Present Illness History of Present Illness: 42 year old female with PMH of significant smoking history, PAD S/P arterial stenting, was found to have pulmonary embolism as an outpatient and she was asked to be admitted at [facility] [place]. Currently, she is also complaining of pain in the right hand with an associated healing wound and the patient states that about 2 weeks she visited a [employer] who prescribed unrecalled PO antibiotics as well as some creams for the wound. She does not recall the diagnosis of her wound. She states that she has had the wound on and off for a couple of months, does not soak her hand in water, denies animal contacts. She states it would open up and have some foul-smelling discharge. She denies fever or chills, no nausea or vomiting, no chest pain, no SOB, no headache or dizziness, no abdominal pain, no diarrhea, no dysuria, no cough or colds. She states the wound is healing. Infectious Diseases consult is requested to further evaluate and manage. Review of Systems - Review of Systems All systems: reviewed and no additional remarkable complaints except (as per HPI) Past Patient History - Infectious Disease Hx of Infectious Diseases: None - Tetanus Immunizations Tetanus Immunization: Up to Date - Past Medical History & Family History Past Medical History?: Yes - Past Social History Smoking Status: Current Some Days Smoker - CARDIAC Hx Cardiac Disorders: Yes (2 stents in Aorta) Hx Hypercholesterolemia: Yes (Hyperlipidemia,) Hx Hypertension: Yes - PULMONARY Hx Respiratory Disorders: No - NEUROLOGICAL Hx Neurological Disorder: No - HEENT Hx HEENT Problems: Yes (eyeglasses) - RENAL Hx Chronic Kidney Disease: No - ENDOCRINE/METABOLIC Hx Diabetes Mellitus Type 2: (Hyperglycemia) - HEMATOLOGICAL/ONCOLOGICAL Hx Blood Disorders: No - INTEGUMENTARY Other/Comment: right hand infection - MUSCULOSKELETAL/RHEUMATOLOGICAL Hx Falls: No - GASTROINTESTINAL Hx Pancreatitis: Yes Hx Ulcer: Yes (left foot ulcer 08/02) Other/Comment: gastritis - GENITOURINARY/GYNECOLOGICAL Hx Genitourinary Disorders: Yes (irregular periods) - PSYCHIATRIC Hx Substance Use: No Other/Comment: etoh- 6 pack of beer daily - SURGICAL HISTORY Other/Comment: left heel surgical repair, baloon angioplasty of aortia and iliac bilaterally 10/10/17 in vascular - ANESTHESIA Hx Anesthesia: Yes Hx Anesthesia Reactions: No Hx Malignant Hyperthermia: No Meds Allergies/Adverse Reactions: Allergies Allergy/AdvReac Type Severity Reaction Status Date / Time latex Allergy Severe RASH Verified 11/24/17 16:54 shellfish derived Allergy Severe SHORTNESS Verified 11/24/17 16:54 OF BREATH - Medications Medications: Current Medications Acetaminophen (Tylenol 650 Mg Supp) 650 mg RC Q6H PRN PRN Reason: TEMP>=99.5F Acetaminophen (Tylenol 325mg Tab) 650 mg PO Q6H PRN PRN Reason: Headache Last Admin: 01/23/18 18:17 Dose: 650 mg Acetaminophen (Tylenol 650 Mg Supp) 650 mg RC Q6H PRN PRN Reason: Headache Aspirin (Ecotrin) 81 mg PO DAILY [facility] Chlordiazepoxide (Librium) 25 mg PO Q6 [facility]; Taper Stop: 01/26/18 22:44 Last Admin: 01/23/18 17:29 Dose: 25 mg Chlordiazepoxide (Librium) 25 mg PO Q4H PRN PRN Reason: Withdrawl Clonidine HCl (Catapres) 0.1 mg PO Q4H PRN PRN Reason: Symptoms of alcohol withdrawl Docusate Sodium (Colace) 100 mg PO TID [facility] Last Admin: 01/23/18 17:29 Dose: 100 mg Ergocalciferol (Drisdol 50,000 Intl Units Cap) 1 cap PO Q7D [facility] Last Admin: 01/22/18 22:26 Dose: 1 cap Folic Acid (Folic Acid) 1 mg PO DAILY [facility] Last Admin: 01/23/18 11:06 Dose: 1 mg Haloperidol Lactate (Haldol) 2 mg IM Q8H PRN PRN Reason: Agitation Heparin Sodium/Sodium Chloride (Heparin 37078 Units/250ml 1/2 Normal Saline) 25,000 units in 250 mls @ 11.349 mls/hr IV .Q22H2M PRN; Protocol PRN Reason: ADJUST RATE PER PROTOCOL Last Titration: 01/23/18 10:58 Dose: 13 units/kg/hr, 8.196 mls/hr Ceftaroline Fosamil 600 mg/ (Sodium Chloride) 100 mls @ 100 mls/hr IVPB Q12 [facility]; Protocol Stop: 01/30/18 22:01 Fluconazole 100 mg/ (Miscellaneous) 50 mls @ 100 mls/hr IVPB DAILY [facility]; Protocol Sodium Chloride (Sodium Chloride 0.45%) 1,000 mls @ 75 mls/hr IV .[id number] [facility] Levalbuterol HCl (Xopenex) 0.63 mg IH Q2SSPCF [facility] Last Admin: 01/23/18 20:00 Dose: Not Given Lorazepam (Ativan) 1 mg IVP Q4H PRN PRN Reason: Symptoms of alcohol withdrawl Multivitamins/Minerals (Therapeutic-M Tab) 1 tab PO DAILY [facility] Last Admin: 01/23/18 11:00 Dose: 1 tab Mupirocin (Bactroban Ointment) 0 gm TOP BID [facility] Last Admin: 01/23/18 17:29 Dose: 1 applic Nicotine (Nicoderm Cq) 1 patch TD DAILY [facility] Last Admin: 01/23/18 11:02 Dose: 1 patch Ondansetron HCl (Zofran Inj) 4 mg IVP Q4H PRN PRN Reason: Nausea/Vomiting Pantoprazole Sodium (Protonix Ec Tab) 40 mg PO 0600 [facility] Last Admin: 01/23/18 05:27 Dose: 40 mg Thiamine HCl (Vitamin B1 Tab) 100 mg PO DAILY [facility] Last Admin: 01/23/18 11:00 Dose: 100 mg Trazodone HCl (Desyrel) 50 mg PO HS PRN PRN Reason: Insomnia Physical Exam - Constitutional Appears: Non-toxic, No Acute Distress - Head Exam Head Exam: NORMAL INSPECTION - Neck Exam Neck exam: Negative for: Meningismus - Respiratory Exam Respiratory Exam: Decreased Breath Sounds - Cardiovascular Exam Cardiovascular Exam: +S1, +S2 - GI/Abdominal Exam GI & Abdominal Exam: Soft. absent: Tenderness - Extremities Exam Additional comments: right hand with wound which is currently dry Results - Vital Signs Recent Vital Signs: Last Vital Signs Temp 98.5 F 01/23/18 18:00 Pulse 86 01/23/18 18:00 Resp 18 01/23/18 18:00 BP 131/90 01/23/18 18:00 Pulse Ox 97 01/23/18 06:00 - Labs Result Diagrams: 01/24/18 06:00 01/24/18 06:00 Labs: Laboratory Results - last 24 hr 01/23/18 01/23/18 01/23/18 01:58 01:58 01:58 WBC RBC Hgb Hct MCV MCH MCHC RDW Plt Count Manual Plt Count 80 L MPV Gran % Lymph % (Auto) [place] % (Auto) Eos % (Auto) Baso % (Auto) Gran # Lymph # (Auto) [place] # (Auto) Eos # (Auto) Baso # (Auto) PT INR APTT Sodium Potassium Chloride Carbon Dioxide Anion Gap BUN Creatinine Est GFR ( Amer) Est GFR (Non-Af Amer) Random Glucose Hemoglobin A1c Calcium Phosphorus Magnesium Total Bilirubin Direct Bilirubin AST ALT Alkaline Phosphatase Troponin I 0.08 Total Protein Albumin Globulin Albumin/Globulin Ratio Triglycerides Cholesterol LDL Cholesterol Direct HDL Cholesterol 25-OH Vitamin D Total Free T4 Thyroxine (T4) Free T3 pg/mL Total T3 TSH 3rd Generation Beta HCG, Quant < 2.39 Urine Color Urine Appearance Urine pH Ur Specific [place] Urine Protein Urine Glucose (UA) Urine Ketones Urine Blood Urine Nitrate Urine Bilirubin Urine Urobilinogen Ur Leukocyte Esterase Urine RBC Urine WBC Ur Epithelial Cells Amorphous Sediment Urine Bacteria Urine Other Urine HCG, Qual RPR 01/23/18 01/23/18 01/23/18 01:58 06:00 06:00 WBC 6.5 RBC 5.30 Hgb 17.1 H Hct 49.7 H MCV 93.8 MCH 32.3 MCHC 34.4 RDW 13.5 Plt Count 98 L Manual Plt Count 115 L MPV 10.2 Gran % 62.8 Lymph % (Auto) 27.5 Davidson % (Auto) 9.1 H Eos % (Auto) 0.3 L Baso % (Auto) 0.3 Gran # 4.08 Lymph # (Auto) 1.8 Davidson # (Auto) 0.6 Eos # (Auto) 0.0 Baso # (Auto) 0.02 PT INR APTT 179.2 H* Sodium 136 Potassium 4.0 Chloride 106 Carbon Dioxide 24 Anion Gap 10 BUN 11 Creatinine 0.8 Est GFR ( Amer) > 60 Est GFR (Non-Af Amer) > 60 Random Glucose 121 H Hemoglobin A1c Calcium 8.6 Phosphorus 3.4 Magnesium 1.7 Total Bilirubin 1.1 Direct Bilirubin 0.4 AST 21 ALT 16 Alkaline Phosphatase 78 Troponin I 0.08 Total Protein 6.9 Albumin 3.3 Globulin 3.6 Albumin/Globulin Ratio 0.9 L Triglycerides 79 Cholesterol 111 L LDL Cholesterol Direct 50 HDL Cholesterol 41 25-OH Vitamin D Total Free T4 Thyroxine (T4) Free T3 pg/mL Total T3 TSH 3rd Generation Beta HCG, Quant Urine Color Urine Appearance Urine pH Ur Specific [place] Urine Protein Urine Glucose (UA) Urine Ketones Urine Blood Urine Nitrate Urine Bilirubin Urine Urobilinogen Ur Leukocyte Esterase Urine RBC Urine WBC Ur Epithelial Cells Amorphous Sediment Urine Bacteria Urine Other Urine HCG, Qual RPR 01/23/18 01/23/18 01/23/18 06:00 06:00 06:00 WBC RBC Hgb Hct MCV MCH MCHC RDW Plt Count Manual Plt Count MPV Gran % Lymph % (Auto) [place] % (Auto) Eos % (Auto) Baso % (Auto) Gran # Lymph # (Auto) Davidson # (Auto) Eos # (Auto) Baso # (Auto) PT 12.7 H INR 1.10 APTT 80.1 H Sodium Potassium Chloride Carbon Dioxide Anion Gap BUN Creatinine Est GFR ( Amer) Est GFR (Non-Af Amer) Random Glucose Hemoglobin A1c Calcium Phosphorus Magnesium Total Bilirubin Direct Bilirubin AST ALT Alkaline Phosphatase Troponin I Total Protein Albumin Globulin Albumin/Globulin Ratio Triglycerides Cholesterol LDL Cholesterol Direct HDL Cholesterol 25-OH Vitamin D Total Free T4 0.95 Thyroxine (T4) Free T3 pg/mL Total T3 TSH 3rd Generation 3.32 Beta HCG, Quant Urine Color Urine Appearance Urine pH Ur Specific [place] Urine Protein Urine Glucose (UA) Urine Ketones Urine Blood Urine Nitrate Urine Bilirubin Urine Urobilinogen Ur Leukocyte Esterase Urine RBC Urine WBC Ur Epithelial Cells Amorphous Sediment Urine Bacteria Urine Other Urine HCG, Qual RPR Nonreactive 01/23/18 01/23/18 01/23/18 06:00 06:00 06:30 WBC RBC Hgb Hct MCV MCH MCHC RDW Plt Count Manual Plt Count MPV Gran % Lymph % (Auto) [place] % (Auto) Eos % (Auto) Baso % (Auto) Gran # Lymph # (Auto) [place] # (Auto) Eos # (Auto) Baso # (Auto) PT INR APTT Sodium Potassium Chloride Carbon Dioxide Anion Gap BUN Creatinine Est GFR ( Amer) Est GFR (Non-Af Amer) Random Glucose Hemoglobin A1c 6.2 Calcium Phosphorus Magnesium Total Bilirubin Direct Bilirubin AST ALT Alkaline Phosphatase Troponin I Total Protein Albumin Globulin Albumin/Globulin Ratio Triglycerides Cholesterol LDL Cholesterol Direct HDL Cholesterol 25-OH Vitamin D Total < 12.8 L Free T4 Thyroxine (T4) Free T3 pg/mL 3.23 Total T3 TSH 3rd Generation Beta HCG, Quant Urine Color Urine Appearance Urine pH Ur Specific [place] Urine Protein Urine Glucose (UA) Urine Ketones Urine Blood Urine Nitrate Urine Bilirubin Urine Urobilinogen Ur Leukocyte Esterase Urine RBC Urine WBC Ur Epithelial Cells Amorphous Sediment Urine Bacteria Urine Other Urine HCG, Qual RPR 01/23/18 01/23/18 01/23/18 06:30 09:45 18:00 WBC RBC Hgb Hct MCV MCH MCHC RDW Plt Count Manual Plt Count MPV Gran % Lymph % (Auto) [place] % (Auto) Eos % (Auto) Baso % (Auto) Gran # Lymph # (Auto) [place] # (Auto) Eos # (Auto) Baso # (Auto) PT INR APTT 82.2 H 69.8 H Sodium Potassium Chloride Carbon Dioxide Anion Gap BUN Creatinine Est GFR ( Amer) Est GFR (Non-Af Amer) Random Glucose Hemoglobin A1c Calcium Phosphorus Magnesium Total Bilirubin Direct Bilirubin AST ALT Alkaline Phosphatase Troponin I Total Protein Albumin Globulin Albumin/Globulin Ratio Triglycerides Cholesterol LDL Cholesterol Direct HDL Cholesterol 25-OH Vitamin D Total Free T4 Thyroxine (T4) 4.8 L Free T3 pg/mL Total T3 0.90 L TSH 3rd Generation Beta HCG, Quant Urine Color Urine Appearance Urine pH Ur Specific [place] Urine Protein Urine Glucose (UA) Urine Ketones Urine Blood Urine Nitrate Urine Bilirubin Urine Urobilinogen Ur Leukocyte Esterase Urine RBC Urine WBC Ur Epithelial Cells Amorphous Sediment Urine Bacteria Urine Other Urine HCG, Qual RPR 01/23/18 18:34 WBC RBC Hgb Hct MCV MCH MCHC RDW Plt Count Manual Plt Count MPV Gran % Lymph % (Auto) [place] % (Auto) Eos % (Auto) Baso % (Auto) Gran # Lymph # (Auto) [place] # (Auto) Eos # (Auto) Baso # (Auto) PT INR APTT Sodium Potassium Chloride Carbon Dioxide Anion Gap BUN Creatinine Est GFR ( Amer) Est GFR (Non-Af Amer) Random Glucose Hemoglobin A1c Calcium Phosphorus Magnesium Total Bilirubin Direct Bilirubin AST ALT Alkaline Phosphatase Troponin I Total Protein Albumin Globulin Albumin/Globulin Ratio Triglycerides Cholesterol LDL Cholesterol Direct HDL Cholesterol 25-OH Vitamin D Total Free T4 Thyroxine (T4) Free T3 pg/mL Total T3 TSH 3rd Generation Beta HCG, Quant Urine Color Yellow Urine Appearance Clear Urine pH 5.5 Ur Specific [place] 1.015 Urine Protein Negative Urine Glucose (UA) 100 H Urine Ketones Negative Urine Blood Moderate H Urine Nitrate Negative Urine Bilirubin Negative Urine Urobilinogen 1.0 H Ur Leukocyte Esterase Large H Urine RBC Tntc Urine WBC Tntc Ur Epithelial Cells Many Amorphous Sediment Few Urine Bacteria Many Urine Other Uyeast Urine HCG, Qual Negative RPR Assessment & Plan - Assessment and Plan (Free Text) Plan: Assessment consider right hand skin and skin structure infection, R/O deeper infection significant smoking history PAD S/P arterial stenting pulmonary embolism Plan Started Teflaro pending blood and wound cx; will get MRI as well will monitor clinically
[2018-01-24] MEDS: Sodium Chloride 0.45% 1,000 ML IV SCH (19:30)
--- NOTE | 2018-01-24 21:56 | CP.PCM.PN ---
Subjective - Date & Time of Evaluation Date of Evaluation: 01/24/18 Time of Evaluation: 13:00 - Subjective Subjective: For Eliquis today Objective - Vital Signs/Intake and Output Vital Signs (last 24 hours): Temp Pulse Resp BP Pulse Ox 98 F 75 18 139/81 100 01/24/18 17:33 01/24/18 17:33 01/24/18 17:33 01/24/18 17:33 01/24/18 05:46 Intake and Output: 01/24/18 01/25/18 18:59 06:59 Intake Total 1553 1047 Balance 1553 1047 - Medications Medications: Current Medications Acetaminophen (Tylenol 650 Mg Supp) 650 mg RC Q6H PRN PRN Reason: TEMP>=99.5F Acetaminophen (Tylenol 325mg Tab) 650 mg PO Q6H PRN PRN Reason: Headache Last Admin: 01/23/18 18:17 Dose: 650 mg Acetaminophen (Tylenol 650 Mg Supp) 650 mg RC Q6H PRN PRN Reason: Headache Apixaban (Eliquis) 10 mg PO BID [facility]; Protocol Last Admin: 01/24/18 18:13 Dose: 10 mg Aspirin (Ecotrin) 81 mg PO DAILY [facility] Last Admin: 01/24/18 11:28 Dose: 81 mg Chlordiazepoxide (Librium) 25 mg PO TID [facility]; Taper Stop: 01/26/18 22:44 Last Admin: 01/24/18 18:13 Dose: Not Given Chlordiazepoxide (Librium) 25 mg PO Q4H PRN PRN Reason: Withdrawl Clonidine HCl (Catapres) 0.1 mg PO Q4H PRN PRN Reason: Symptoms of alcohol withdrawl Docusate Sodium (Colace) 100 mg PO TID [facility] Last Admin: 01/24/18 18:07 Dose: Not Given Ergocalciferol (Drisdol 50,000 Intl Units Cap) 1 cap PO Q7D [facility] Last Admin: 01/22/18 22:26 Dose: 1 cap Folic Acid (Folic Acid) 1 mg PO DAILY [facility] Last Admin: 01/24/18 11:28 Dose: 1 mg Haloperidol Lactate (Haldol) 2 mg IM Q8H PRN PRN Reason: Agitation Ceftaroline Fosamil 600 mg/ (Sodium Chloride) 100 mls @ 100 mls/hr IVPB Q12 [facility]; Protocol Stop: 01/30/18 22:01 Last Admin: 01/24/18 21:38 Dose: 100 mls/hr Fluconazole 100 mg/ (Miscellaneous) 50 mls @ 100 mls/hr IVPB DAILY [facility]; Protocol Last Admin: 01/24/18 11:30 Dose: 100 mls/hr Sodium Chloride (Sodium Chloride 0.45%) 1,000 mls @ 75 mls/hr IV .[id number] [facility] Last Admin: 01/24/18 19:30 Dose: 75 mls/hr Levalbuterol HCl (Xopenex) 0.63 mg IH [id number] [facility] Last Admin: 01/24/18 20:36 Dose: 0.63 mg Lorazepam (Ativan) 1 mg IVP Q4H PRN PRN Reason: Symptoms of alcohol withdrawl Magnesium Oxide (Mag-Ox) 400 mg PO BID [facility] Multivitamins/Minerals (Therapeutic-M Tab) 1 tab PO DAILY [facility] Last Admin: 01/24/18 11:54 Dose: 1 tab Mupirocin (Bactroban Ointment) 0 gm TOP BID [facility] Last Admin: 01/24/18 18:13 Dose: 1 applic Nicotine (Nicoderm Cq) 1 patch TD DAILY [facility] Last Admin: 01/24/18 11:37 Dose: Not Given Ondansetron HCl (Zofran Inj) 4 mg IVP Q4H PRN PRN Reason: Nausea/Vomiting Pantoprazole Sodium (Protonix Ec Tab) 40 mg PO 0600 [facility] Last Admin: 01/24/18 05:10 Dose: 40 mg Thiamine HCl (Vitamin B1 Tab) 100 mg PO DAILY [facility] Last Admin: 01/24/18 11:54 Dose: 100 mg Trazodone HCl (Desyrel) 50 mg PO HS PRN PRN Reason: Insomnia Last Admin: 01/24/18 21:41 Dose: 50 mg - Labs Labs: 01/24/18 06:00 01/24/18 06:00 PT 12.9 SECONDS (9.4-12.5) H 01/24/18 06:00 INR 1.12 01/24/18 06:00 APTT 70.9 Seconds (25.1-36.5) H 01/24/18 06:00 - Head Exam Head Exam: ATRAUMATIC - Eye Exam Eye Exam: Normal appearance - ENT Exam ENT Exam: Mucous Membranes Dry - Respiratory Exam Respiratory Exam: NORMAL BREATHING PATTERN - Cardiovascular Exam Cardiovascular Exam: +S1, +S2 - GI/Abdominal Exam GI & Abdominal Exam: Normal Bowel Sounds - Extremities Exam Extremities Exam: Normal Inspection Assessment and Plan (1) Pulmonary embolism Assessment & Plan: unprovoked inherited thrombophilia w/u sent to start Eliquis loading today and D/C heparin Eliquis 10mg BID x 7 days, followed by Eliquis 5mg BID - duration will depend on results of inherited thrombophilia w/u but minimum of 3-6 months of anticoagulation Status: Acute (2) Polycythemia Assessment & Plan: 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 to monitor Status: Acute (4) Coagulopathy Assessment & Plan: anticoagulation Status: Acute (5) Tobacco abuse Assessment & Plan: smoking cessation discussed at length Status: Acute
[2018-01-25] MEDS: Levalbuterol 0.63 MG/3 ML Inhal Soln UD IH SCH ×4 (02:18→19:31)
[2018-01-25] MEDS: Pantoprazole 40 mg EC Tab PO SCH (05:27)
[2018-01-25 06:52] LABS: BASO # 0.01 K/mm3 (0.0-2.0); BASO % 0.2 % (0.0-3.0); EOS % 0.7 % (1.5-5.0); GRAN # 2.69 (1.4-6.5); HEMOGLOBIN 15.2 g/dL (12.0-16.0); LYMPH # 1.3 (1.2-3.4); LYMPH % 29.3 % (22.0-35.0); MEAN CELL VOLUME 93.2 fl (80.0-105.0); MEAN CORPUSCULAR HEMOGLOBIN 31.2 pg (25.0-35.0); MEAN CORPUSCULAR HGB CONC 33.5 g/dl (31.0-37.0); MEAN PLATELET VOLUME 10.3 fl (7.0-11.0); MONO # 0.3 (0.1-0.6); MONO % 6.8 % (1.0-6.0); RBC 4.87 10^6/uL (3.5-6.1); RED CELL DISTRIBUTION WIDTH 13.4 % (11.5-14.5); WHITE BLOOD COUNT 4.3 10^3/ul (4.5-11.0)
[2018-01-25 07:11] LABS: ALB/GLOB RATIO 0.9 (1.1-1.8); ALBUMIN 2.6 g/dL (3.0-4.8); ALT/SGPT 18 U/L (7-56); AST/SGOT 17 U/L (14-36); BILIRUBIN,DIRECT 0.1 mg/dL (0.0-0.4); BLOOD UREA NITROGEN 9 mg/dL (7-21); CALCIUM 8.1 mg/dL (8.4-10.5); GFR NON-AFRICAN AMERICAN > 60
[2018-01-25] MEDS: Sodium Chloride 0.45% 1,000 ML IV SCH (10:46)
[2018-01-25] MEDS: Multivitamin With Minerals Tab PO SCH (10:48)
[2018-01-25] MEDS: Magnesium Oxide 400 mg Tab UD PO SCH ×2 (10:48→17:23)
[2018-01-25] MEDS: NS 100 MG IVPB SCH (10:50)
[2018-01-25] MEDS: FLUCONAZOLE IVPB SCH (10:50)
[2018-01-25] MEDS: Mupirocin 2% Ointment 15 GM TUBE TOP SCH ×2 (10:50→17:23)
[2018-01-25] MEDS: PREMIXED IVPB SCH (10:50)
[2018-01-25] MEDS: Ceftaroline 600 MG in Sodium Chloride 0.9% 100 ML IVPB SCH ×2 (11:49→22:44)
[2018-01-25] MEDS ORDERED: Gadodiamide 287 MG/ML VIAL (15ML) IV ONE (13:57)
--- NOTE | 2018-01-25 15:04 | PN ---
DATE: 01/25/2018 SUBJECTIVE: The patient is in room 267, bed 2. The patient is seen in room 267, bed 2. Overnight nurse's notes were reviewed. No adverse events documented. REVIEW OF SYSTEMS: Thirteen-system review was negative for shortness breath, negative for chest pain, negative for nausea, negative for vomiting, negative for diarrhea, negative for hemoptysis, negative for melena, negative for falls, negative for syncope. Negative for abdominal pain, negative for bleeding. PHYSICAL EXAMINATION: VITAL SIGNS: T-max 98 degrees Fahrenheit. Telemetry shows sinus rhythm, heart rate 63, blood pressure 107/86, respirations 20, O2 sat 99%. HEENT: Head examination normocephalic, atraumatic. HEENT examination shows pink conjunctivae. Anicteric sclerae. No oropharyngeal lesion. No neck rigidity. CHEST: Kyphosis. LUNGS: Shows occasional rhonchi bilaterally, left more than the right. CARDIOVASCULAR: S1, S2. Regular rhythm. No audible murmur, gallop or rub. ABDOMEN: Soft. Positive bowel sound. No palpable hepatosplenomegaly noted. GENITALIA: Female. RECTAL: Deferred. EXTREMITY: Shows no pitting edema, no calf tenderness, no Homans' sign. NEUROLOGICAL: The patient is alert, awake, oriented x3. Cranial nerves II through XII intact. Gait examination is independent. VASCULAR: Palpable pulses. PSYCHIATRIC: Negative. MUSCULOSKELETAL: Shows a body mass index of 23. DIAGNOSTICS: On 01/25/2018, WBC 4.3, hemoglobin and hematocrit 15.2 and 45.4, platelet 120,000 manual. Sodium 136, potassium 3.7, chloride 110, CO2 of 22, BUN 9, creatinine 0.8, glucose 170, calcium 8.1, phosphorus 3.5, magnesium 2. CRP is 12.7 and 10, total protein 5.7, albumin 2.6. Wound cultures from the right hand skin lesion, coagulase-negative Staphylococcus aureus. MRI of the right upper extremity pending. The patient is seen by Hematology/Oncology. IV heparin stopped. The patient was started on Eliquis. IMPRESSION AND PLAN: 1. Unprovoked left lower lobe segmental branches pulmonary embolism. 2. Possibly secondary polycythemia secondary to nicotine dependence. 3. Leukopenia. 4. Relative thrombocytopenia. 5. Prediabetes with hyperglycemia. 6. Active nicotine, alcohol and marijuana abuse. 7. Elevated C-reactive protein of greater than 12. 8. Mild hypoalbuminemia and protein malnutrition. 9. Right hand skin and skin structure infection with coagulase-negative Staphylococcus aureus. 10. Peripheral vascular disease. 11. Status post endovascular abdominal aortic aneurysm endovascular grafting. 12. Questionable history of diabetes and hyperlipidemia. 13. Hypovitaminosis D. Plan at this time, the patient is on CIWA protocol with Ativan 1 mg IV every 4 p.r.n., the patient is on Bactroban cream to the affected area twice a day, clonidine 0.1 mg every 4 hours p.r.n., the patient is on Teflaro 600 mg IV every 12, the patient is on Colace 100 mg three times a day, trazodone 50 mg at bedtime p.r.n., Drisdol 50,000 units weekly, Ecotrin 81 mg daily, Eliquis 10 mg twice a day loading dose for 1 week, the patient is on Diflucan 100 mg IV daily, the patient is on folic acid 1 mg daily, Haldol 2 mg IM every 8 hours p.r.n., Librium scheduled 25 mg b.i.d. and Librium p.r.n. 25 mg p.o. every 4 hours, magnesium oxide 400 mg twice a day, nicotine patch 21 mg daily, Protonix 40 mg daily, the patient is on IV fluid 0.45 normal saline at 75 mL an hour, the patient is on multivitamin 1 tablet daily, Tylenol p.r.n., thiamine 100 mg daily, Xopenex nebulizer 0.63 mg four times a day, Zofran 4 mg IV every 4 hours p.r.n. At this time, the patient is to be continued on IV antibiotics. As per Infectious Disease recommendation, the patient's MRI of the upper extremity is pending, which will be reviewed when available. The patient's telemetry is discontinued. The patient has been counseled about cessation of smoking, alcohol and marijuana use, which she acknowledged and understand. All of the above, the patient's condition, diagnoses, test results, recommendations about her condition was explained to the patient in layman's language. All questions concerned answered to her satisfaction. Dictated and electronically signed, not read. Baljit Burden MD [facility] # [id number]
--- NOTE | 2018-01-25 15:04 | PN ---
DATE: 01/25/2018 CARDIOLOGY FOLLOWUP SUBJECTIVE: The patient is without shortness of breath. PHYSICAL EXAMINATION: VITAL SIGNS: Blood pressure is 107/86, the heart rate is in the 60s. NECK: Negative JVD. LUNGS: Without rales. HEART: Reveals S1, S2. EXTREMITIES: Without edema. LABORATORY DATA: Hemoglobin is 15.2. Chemistries: BUN and creatinine are unremarkable. Glucose is 170. IMPRESSION: 1. Pulmonary embolism. 2. Hypertension. 3. Chronic obstructive pulmonary disease. 4. Peripheral vascular disease. 5. Recent stenting of the distal aorta and iliacs. PLAN: Given these findings, the patient has been placed on Eliquis. Given her history of atherosclerosis, I would arrange for a stress test once her pulmonary embolism is resolved. Richie Peck MD
--- NOTE | 2018-01-25 22:14 | CP.PCM.PN ---
Subjective - Date & Time of Evaluation Date of Evaluation: 01/25/18 Time of Evaluation: 10:40 - Subjective Subjective: Less pain in the right hand, no fevers. Objective - Vital Signs/Intake and Output Vital Signs (last 24 hours): Temp Pulse Resp BP Pulse Ox 97.5 F L 63 20 107/86 99 01/25/18 06:00 01/25/18 06:00 01/25/18 06:00 01/25/18 06:00 01/25/18 06:00 Intake and Output: 01/24/18 01/25/18 18:59 06:59 Intake Total 1553 2367 Balance 1553 2367 - Medications Medications: Current Medications Acetaminophen (Tylenol 650 Mg Supp) 650 mg RC Q6H PRN PRN Reason: TEMP>=99.5F Acetaminophen (Tylenol 325mg Tab) 650 mg PO Q6H PRN PRN Reason: Headache Last Admin: 01/23/18 18:17 Dose: 650 mg Acetaminophen (Tylenol 650 Mg Supp) 650 mg RC Q6H PRN PRN Reason: Headache Apixaban (Eliquis) 10 mg PO BID [facility], [facility]; Protocol Last Admin: 01/24/18 18:13 Dose: 10 mg Aspirin (Ecotrin) 81 mg PO DAILY [facility] Last Admin: 01/24/18 11:28 Dose: 81 mg Chlordiazepoxide (Librium) 25 mg PO BID [facility], [facility]; Taper Stop: 01/26/18 22:44 Last Admin: 01/24/18 18:13 Dose: Not Given Chlordiazepoxide (Librium) 25 mg PO Q4H PRN PRN Reason: Withdrawl Clonidine HCl (Catapres) 0.1 mg PO Q4H PRN PRN Reason: Symptoms of alcohol withdrawl Docusate Sodium (Colace) 100 mg PO TID [facility] Last Admin: 01/24/18 18:07 Dose: Not Given Ergocalciferol (Drisdol 50,000 Intl Units Cap) 1 cap PO Q7D [facility] Last Admin: 01/22/18 22:26 Dose: 1 cap Folic Acid (Folic Acid) 1 mg PO DAILY [facility] Last Admin: 01/24/18 11:28 Dose: 1 mg Haloperidol Lactate (Haldol) 2 mg IM Q8H PRN PRN Reason: Agitation Ceftaroline Fosamil 600 mg/ (Sodium Chloride) 100 mls @ 100 mls/hr IVPB Q12 [facility]; Protocol Stop: 01/30/18 22:01 Last Admin: 01/24/18 21:38 Dose: 100 mls/hr Fluconazole 100 mg/ (Miscellaneous) 50 mls @ 100 mls/hr IVPB DAILY [facility]; Protocol Last Admin: 01/24/18 11:30 Dose: 100 mls/hr Sodium Chloride (Sodium Chloride 0.45%) 1,000 mls @ 75 mls/hr IV .[id number] [facility] Last Admin: 01/24/18 19:30 Dose: 75 mls/hr Levalbuterol HCl (Xopenex) 0.63 mg IH [id number] [facility] Last Admin: 01/25/18 02:18 Dose: Not Given Lorazepam (Ativan) 1 mg IVP Q4H PRN PRN Reason: Symptoms of alcohol withdrawl Magnesium Oxide (Mag-Ox) 400 mg PO BID [facility] Multivitamins/Minerals (Therapeutic-M Tab) 1 tab PO DAILY [facility] Last Admin: 01/24/18 11:54 Dose: 1 tab Mupirocin (Bactroban Ointment) 0 gm TOP BID [facility] Last Admin: 01/24/18 18:13 Dose: 1 applic Nicotine (Nicoderm Cq) 1 patch TD DAILY [facility] Last Admin: 01/24/18 11:37 Dose: Not Given Ondansetron HCl (Zofran Inj) 4 mg IVP Q4H PRN PRN Reason: Nausea/Vomiting Pantoprazole Sodium (Protonix Ec Tab) 40 mg PO 0600 [facility] Last Admin: 01/25/18 05:27 Dose: 40 mg Thiamine HCl (Vitamin B1 Tab) 100 mg PO DAILY [facility] Last Admin: 01/24/18 11:54 Dose: 100 mg Trazodone HCl (Desyrel) 50 mg PO HS PRN PRN Reason: Insomnia Last Admin: 01/24/18 21:41 Dose: 50 mg - Labs Labs: 01/24/18 06:00 01/24/18 06:00 PT 12.9 SECONDS (9.4-12.5) H 01/24/18 06:00 INR 1.12 01/24/18 06:00 APTT 70.9 Seconds (25.1-36.5) H 01/24/18 06:00 - Constitutional Appears: No Acute Distress, Chronically Ill - Head Exam Head Exam: NORMAL INSPECTION - Respiratory Exam Respiratory Exam: Decreased Breath Sounds - Cardiovascular Exam Cardiovascular Exam: +S1, +S2 - GI/Abdominal Exam GI & Abdominal Exam: Soft. absent: Tenderness - Extremities Exam Additional comments: right hand with dressings in place Assessment and Plan - Assessment and Plan (Free Text) Plan: Assessment consider right hand skin and skin structure infection, R/O deeper infection significant smoking history PAD S/P arterial stenting pulmonary embolism Plan continue Teflaro day 2 pending wound cx; follow up MRI of the hand will continue to monitor clinically
[2018-01-26] MEDS: Levalbuterol 0.63 MG/3 ML Inhal Soln UD IH SCH ×4 (01:58→20:42)
[2018-01-26 05:31] LABS: B2 GLYCOPROTEIN I AB(IGA) <9 SAU (<=20); B2 GLYCOPROTEIN I AB(IGG) <9 SGU (<=20); B2 GLYCOPROTEIN I AB(IGM) <9 SMU (<=20); CARDIOLIPIN AB (IGA) <11 APL (<=11); CARDIOLIPIN AB (IGG) <14 GPL (<=14); CARDIOLIPIN AB (IGM) <12 MPL (<=12)
[2018-01-26] MEDS: Pantoprazole 40 mg EC Tab PO SCH (05:39)
[2018-01-26 07:06] LABS: INR 1.29; PARTIAL THROMBOPLASTIN TIME 33.8 Seconds (25.1-36.5); PROTHROMBIN TIME 14.9 SECONDS (9.4-12.5)
[2018-01-26 07:49] LABS: PHOSPHATIDYLSERINE AB IGA <20 U/mL (<20); PHOSPHATIDYLSERINE AB IGG <10 U/mL (<10); PHOSPHATIDYLSERINE AB IGM <25 U/mL (<25)
[2018-01-26 07:50] VITALS: RESP 20
[2018-01-26] MEDS: NS 100 MG IVPB SCH (10:41)
[2018-01-26] MEDS: FLUCONAZOLE IVPB SCH (10:41)
[2018-01-26] MEDS: PREMIXED IVPB SCH (10:41)
[2018-01-26] MEDS: Multivitamin With Minerals Tab PO SCH (10:46)
[2018-01-26] MEDS: Magnesium Oxide 400 mg Tab UD PO SCH ×2 (10:47→18:01)
[2018-01-26] MEDS: Mupirocin 2% Ointment 15 GM TUBE TOP SCH ×2 (10:49→18:02)
[2018-01-26] MEDS: Ceftaroline 600 MG in Sodium Chloride 0.9% 100 ML IVPB SCH ×2 (10:50→22:18)
--- NOTE | 2018-01-26 12:57 | CP.PCM.PN ---
Subjective - Date & Time of Evaluation Date of Evaluation: 01/25/18 Time of Evaluation: 19:00 - Subjective Subjective: No complaints, comfortable Objective - Vital Signs/Intake and Output Vital Signs (last 24 hours): Temp Pulse Resp BP Pulse Ox 97.6 F 90 20 100/56 L 98 01/26/18 06:00 01/26/18 06:00 01/26/18 06:00 01/26/18 06:00 01/26/18 06:00 Intake and Output: 01/26/18 01/26/18 06:59 18:59 Intake Total 2460 Output Total 0 Balance 2460 - Medications Medications: Current Medications Acetaminophen (Tylenol 650 Mg Supp) 650 mg RC Q6H PRN PRN Reason: TEMP>=99.5F Acetaminophen (Tylenol 325mg Tab) 650 mg PO Q6H PRN PRN Reason: Headache Last Admin: 01/23/18 18:17 Dose: 650 mg Acetaminophen (Tylenol 650 Mg Supp) 650 mg RC Q6H PRN PRN Reason: Headache Apixaban (Eliquis) 10 mg PO BID [facility]; Protocol Last Admin: 01/26/18 10:46 Dose: 10 mg Aspirin (Ecotrin) 81 mg PO DAILY [facility] Last Admin: 01/26/18 10:47 Dose: 81 mg Chlordiazepoxide (Librium) 25 mg PO DAILY [facility]; Taper Stop: 01/26/18 22:44 Last Admin: 01/26/18 10:46 Dose: Not Given Chlordiazepoxide (Librium) 25 mg PO Q4H PRN PRN Reason: Withdrawl Clonidine HCl (Catapres) 0.1 mg PO Q4H PRN PRN Reason: Symptoms of alcohol withdrawl Docusate Sodium (Colace) 100 mg PO TID [facility] Last Admin: 01/26/18 10:47 Dose: 100 mg Ergocalciferol (Drisdol 50,000 Intl Units Cap) 1 cap PO Q7D [facility] Last Admin: 01/22/18 22:26 Dose: 1 cap Folic Acid (Folic Acid) 1 mg PO DAILY [facility] Last Admin: 01/26/18 10:47 Dose: 1 mg Haloperidol Lactate (Haldol) 2 mg IM Q8H PRN PRN Reason: Agitation Ceftaroline Fosamil 600 mg/ (Sodium Chloride) 100 mls @ 100 mls/hr IVPB Q12 [facility]; Protocol Stop: 01/30/18 22:01 Last Admin: 01/26/18 10:50 Dose: 100 mls/hr Fluconazole 100 mg/ (Miscellaneous) 50 mls @ 100 mls/hr IVPB DAILY [facility]; Protocol Last Admin: 01/26/18 10:41 Dose: 100 mls/hr Sodium Chloride (Sodium Chloride 0.45%) 1,000 mls @ 75 mls/hr IV .[id number] [facility] Last Admin: 01/25/18 10:46 Dose: 75 mls/hr Levalbuterol HCl (Xopenex) 0.63 mg IH [id number] [facility] Last Admin: 01/26/18 07:23 Dose: 0.63 mg Lorazepam (Ativan) 1 mg IVP Q4H PRN PRN Reason: Symptoms of alcohol withdrawl Magnesium Oxide (Mag-Ox) 400 mg PO BID [facility] Last Admin: 01/26/18 10:47 Dose: 400 mg Multivitamins/Minerals (Therapeutic-M Tab) 1 tab PO DAILY [facility] Last Admin: 01/26/18 10:46 Dose: 1 tab Mupirocin (Bactroban Ointment) 0 gm TOP BID [facility] Last Admin: 01/26/18 10:49 Dose: 1 applic Nicotine (Nicoderm Cq) 1 patch TD DAILY [facility] Last Admin: 01/26/18 10:48 Dose: Not Given Ondansetron HCl (Zofran Inj) 4 mg IVP Q4H PRN PRN Reason: Nausea/Vomiting Pantoprazole Sodium (Protonix Ec Tab) 40 mg PO 0600 [facility] Last Admin: 01/26/18 05:39 Dose: 40 mg Thiamine HCl (Vitamin B1 Tab) 100 mg PO DAILY [facility] Last Admin: 01/26/18 10:47 Dose: 100 mg Trazodone HCl (Desyrel) 50 mg PO HS PRN PRN Reason: Insomnia Last Admin: 01/25/18 22:43 Dose: 50 mg - Labs Labs: 01/25/18 05:45 01/25/18 05:45 PT 14.9 SECONDS (9.4-12.5) H 01/26/18 06:45 INR 1.29 01/26/18 06:45 APTT 33.8 Seconds (25.1-36.5) 01/26/18 06:45 - Head Exam Head Exam: ATRAUMATIC - Eye Exam Eye Exam: Normal appearance - ENT Exam ENT Exam: Mucous Membranes Dry - Respiratory Exam Respiratory Exam: NORMAL BREATHING PATTERN - Cardiovascular Exam Cardiovascular Exam: +S1, +S2 - GI/Abdominal Exam GI & Abdominal Exam: Normal Bowel Sounds Assessment and Plan (1) Pulmonary embolism Assessment & Plan: 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 to monitor Status: Acute (4) Coagulopathy Assessment & Plan: anticoagulation Status: Acute (5) Tobacco abuse Assessment & Plan: smoking cessation discussed at length Status: Acute
[2018-01-26] MEDS: Sodium Chloride 0.45% 1,000 ML IV SCH (22:29)
--- NOTE | 2018-01-26 22:45 | CP.PCM.PN ---
Subjective - Date & Time of Evaluation Date of Evaluation: 01/26/18 Time of Evaluation: 14:15 - Subjective Subjective: Comfortable in bed, no fevers, not in distress, less pain in the right hand. Objective - Vital Signs/Intake and Output Vital Signs (last 24 hours): Temp Pulse Resp BP Pulse Ox 97.9 F 84 20 137/91 H 99 01/25/18 14:00 01/25/18 14:00 01/25/18 14:00 01/25/18 14:00 01/25/18 14:00 Intake and Output: 01/25/18 01/26/18 18:59 06:59 Intake Total 300 Output Total 0 Balance 300 - Medications Medications: Current Medications Acetaminophen (Tylenol 650 Mg Supp) 650 mg RC Q6H PRN PRN Reason: TEMP>=99.5F Acetaminophen (Tylenol 325mg Tab) 650 mg PO Q6H PRN PRN Reason: Headache Last Admin: 01/23/18 18:17 Dose: 650 mg Acetaminophen (Tylenol 650 Mg Supp) 650 mg RC Q6H PRN PRN Reason: Headache Apixaban (Eliquis) 10 mg PO BID [facility]; Protocol Last Admin: 01/25/18 17:23 Dose: 10 mg Aspirin (Ecotrin) 81 mg PO DAILY [facility] Last Admin: 01/25/18 10:49 Dose: 81 mg Chlordiazepoxide (Librium) 25 mg PO BID [facility]; Taper Stop: 01/26/18 22:44 Last Admin: 01/25/18 17:25 Dose: Not Given Chlordiazepoxide (Librium) 25 mg PO Q4H PRN PRN Reason: Withdrawl Clonidine HCl (Catapres) 0.1 mg PO Q4H PRN PRN Reason: Symptoms of alcohol withdrawl Docusate Sodium (Colace) 100 mg PO TID [facility] Last Admin: 01/25/18 17:23 Dose: Not Given Ergocalciferol (Drisdol 50,000 Intl Units Cap) 1 cap PO Q7D [facility] Last Admin: 01/22/18 22:26 Dose: 1 cap Folic Acid (Folic Acid) 1 mg PO DAILY [facility] Last Admin: 01/25/18 10:48 Dose: 1 mg Haloperidol Lactate (Haldol) 2 mg IM Q8H PRN PRN Reason: Agitation Ceftaroline Fosamil 600 mg/ (Sodium Chloride) 100 mls @ 100 mls/hr IVPB Q12 [facility]; Protocol Stop: 01/30/18 22:01 Last Admin: 01/25/18 11:49 Dose: 100 mls/hr Fluconazole 100 mg/ (Miscellaneous) 50 mls @ 100 mls/hr IVPB DAILY [facility]; Protocol Last Admin: 01/25/18 10:50 Dose: 100 mls/hr Sodium Chloride (Sodium Chloride 0.45%) 1,000 mls @ 75 mls/hr IV .[id number] [facility] Last Admin: 01/25/18 10:46 Dose: 75 mls/hr Levalbuterol HCl (Xopenex) 0.63 mg IH [id number] [facility] Last Admin: 01/25/18 19:31 Dose: 0.63 mg Lorazepam (Ativan) 1 mg IVP Q4H PRN PRN Reason: Symptoms of alcohol withdrawl Magnesium Oxide (Mag-Ox) 400 mg PO BID [facility] Last Admin: 01/25/18 17:23 Dose: 400 mg Multivitamins/Minerals (Therapeutic-M Tab) 1 tab PO DAILY [facility] Last Admin: 01/25/18 10:48 Dose: 1 tab Mupirocin (Bactroban Ointment) 0 gm TOP BID [facility] Last Admin: 01/25/18 17:23 Dose: 1 applic Nicotine (Nicoderm Cq) 1 patch TD DAILY [facility] Last Admin: 01/25/18 10:48 Dose: Not Given Ondansetron HCl (Zofran Inj) 4 mg IVP Q4H PRN PRN Reason: Nausea/Vomiting Pantoprazole Sodium (Protonix Ec Tab) 40 mg PO 0600 [facility] Last Admin: 01/25/18 05:27 Dose: 40 mg Thiamine HCl (Vitamin B1 Tab) 100 mg PO DAILY [facility] Last Admin: 01/25/18 10:49 Dose: 100 mg Trazodone HCl (Desyrel) 50 mg PO HS PRN PRN Reason: Insomnia Last Admin: 01/24/18 21:41 Dose: 50 mg - Labs Labs: 01/25/18 05:45 01/25/18 05:45 PT 12.9 SECONDS (9.4-12.5) H 01/24/18 06:00 INR 1.12 01/24/18 06:00 APTT 31.1 Seconds (25.1-36.5) 01/25/18 05:45 - Constitutional Appears: Non-toxic, No Acute Distress, Chronically Ill - Head Exam Head Exam: NORMAL INSPECTION - ENT Exam ENT Exam: Mucous Membranes Moist - Respiratory Exam Respiratory Exam: Decreased Breath Sounds. absent: Rales - Cardiovascular Exam Cardiovascular Exam: +S1, +S2 - GI/Abdominal Exam GI & Abdominal Exam: Soft. absent: Tenderness - Extremities Exam Additional comments: right hand with dressings in place Assessment and Plan - Assessment and Plan (Free Text) Plan: Assessment consider right hand skin and skin structure infection, R/O deeper infection significant smoking history PAD S/P arterial stenting pulmonary embolism Plan continue Teflaro day 3; follow up MRI of the hand will continue to monitor clinically
[2018-01-27] MEDS: Levalbuterol 0.63 MG/3 ML Inhal Soln UD IH SCH ×4 (01:37→20:06)
--- NOTE | 2018-01-27 02:50 | PN ---
DATE: 01/26/2018 SUBJECTIVE: The patient was seen in room 568, bed 1. The patient is sleeping but arousable, awake, responsive. The patient overnight nurse's notes were reviewed. The patient denies any chest pain, shortness of breath. No distress, no adverse events were noted. The patient was found to be alert, awake, oriented x3. No shortness of breath noted. The patient ambulated independently. PHYSICAL EXAMINATION: VITAL SIGNS: T-max 97.8; heart rate 78 to 90; blood pressure 134/80, 100/56; respirations 20, O2 sat 98%. HEENT: Head: Normocephalic, atraumatic. HEENT examination shows pink conjunctivae. Anicteric sclerae. No oropharyngeal lesion. No neck rigidity. CHEST: Symmetrical. LUNGS: Examination shows no rales, crackles or wheezing. Occasional rhonchi noted on the left more than the right. CARDIOVASCULAR: S1, S2, regular rhythm. ABDOMEN: Soft. Positive bowel sound. GENITALIA: Female. RECTAL: Examination is deferred. EXTREMITIES: Shows no pitting edema, no calf tenderness, no Homans' sign. NEUROLOGIC: The patient is alert, awake, responsive, oriented x3. Cranial nerves II-XII intact. Gait examination is independent. VASCULAR: Palpable pulses. MUSCULOSKELETAL: Examination shows a body mass index of 23.1. DIAGNOSTICS: 01/26, none. The patient seen by Infectious Disease, MRI of the upper extremity still pending. MRI is still pending. IMPRESSION: 1. Acute unprovoked lower lobe segmental branches pulmonary embolism. 2. Bilateral renal cyst. 3. Active nicotine, alcohol and cannabinoids use. 4. Mild concentric left ventricular hypertrophy. 5. Mild tricuspid regurgitation. 6. History of hypertension, normotensive at present. 7. Right hand, right palm skin and skin structure infection secondary to Staphylococcus coagulase negative. 8. Polycythemia secondary to nicotine dependence and tobacco use. 9. Transient thrombocytopenia. 10. History of peripheral vascular disease. 11. Leukopenia. 12. Neutropenia. 13. Erythrocytosis 14. Thrombocytopenia. 15. Elevated C-reactive protein of greater than 12. 16. Hypovitaminosis D. 17. Prediabetes with hemoglobin A1c of 6.2. 18. Hypomagnesemia. 19. Microscopic hematuria, pyuria, bacteriuria and funguria. 20. Active marijuana and cannabinoid use with urine drug screen positive for benzodiazepine and cannabinoid. 21. Coagulase-negative right hand and right palm skin and skin structure infection. PLAN: At this time, the patient is seen by Infectious Disease, recommend continuation of Teflaro awaiting pending MRI results. The patient seen by Hematology/Oncology, recommends Eliquis loading followed by maintenance Eliquis for at least 3-6 months versus indefinite. CURRENT MEDICATIONS: IV fluid half normal saline at 75 mL an hour, Ativan 1 mg IV every 4 hours p.r.n., Bactroban cream to the right hand twice a day, clonidine 0.1 mg p.o. every 4 p.r.n., Colace 100 mg three times a day, Desyrel 50 mg at bedtime p.r.n., Diflucan 200 mg IV daily, Drisdol 50,000 units weekly, aspirin 81 mg daily, Eliquis 10 mg twice a day, folic acid 1 mg daily, Haldol 2 mg IM every 8 hours p.r.n., Librium 25 mg p.o. every 4 hours p.r.n., magnesium oxide 400 mg twice a day, nicotine patch 21 mg daily, Protonix 40 mg daily, Teflaro 600 mg IV every 12, multivitamin 1 tablet daily, Tylenol p.o. or suppository every 6 650 mg p.r.n., thiamine 100 mg p.o. daily, Xopenex 0.63 mg every 6 hours, Zofran 4 mg IV every 4 hours p.r.n. MRI of the right upper extremity pending. Chest PT, incentive spirometry ordered. Out of bed, LUKE stockings ordered. At present, the patient's further management will be dependent upon the patient's clinical condition, hemodynamic status and as per the patient's response to therapeutic intervention, as per the patient's diagnostic test results and as per recommendation by all the physicians involved in the care of the patient. Dictated and electronically signed, not read. Baljit Burden MD
[2018-01-27] MEDS: Pantoprazole 40 mg EC Tab PO SCH (07:53)
[2018-01-27] MEDS: Sodium Chloride 0.45% 1,000 ML IV SCH ×2 (07:53→09:40)
--- NOTE | 2018-01-27 09:00 | CP.PCM.PN ---
Subjective - Date & Time of Evaluation Date of Evaluation: 01/27/18 Time of Evaluation: 07:45 - Subjective Subjective: (covering for Dr. Burden) Patient is seen this morning in room 568 bed 1. Objective - Vital Signs/Intake and Output Vital Signs (last 24 hours): Temp Pulse Resp BP Pulse Ox 98 F 75 20 127/83 100 01/27/18 06:00 01/27/18 06:00 01/27/18 06:00 01/27/18 06:00 01/27/18 06:00 - Medications Medications: Current Medications Acetaminophen (Tylenol 650 Mg Supp) 650 mg RC Q6H PRN PRN Reason: TEMP>=99.5F Acetaminophen (Tylenol 325mg Tab) 650 mg PO Q6H PRN PRN Reason: Headache Last Admin: 01/23/18 18:17 Dose: 650 mg Acetaminophen (Tylenol 650 Mg Supp) 650 mg RC Q6H PRN PRN Reason: Headache Apixaban (Eliquis) 10 mg PO BID [facility]; Protocol Last Admin: 01/26/18 18:01 Dose: 10 mg Aspirin (Ecotrin) 81 mg PO DAILY [facility] Last Admin: 01/26/18 10:47 Dose: 81 mg Chlordiazepoxide (Librium) 25 mg PO Q4H PRN PRN Reason: Withdrawl Clonidine HCl (Catapres) 0.1 mg PO Q4H PRN PRN Reason: Symptoms of alcohol withdrawl Docusate Sodium (Colace) 100 mg PO TID [facility] Last Admin: 01/26/18 18:01 Dose: 100 mg Ergocalciferol (Drisdol 50,000 Intl Units Cap) 1 cap PO Q7D [facility] Last Admin: 01/22/18 22:26 Dose: 1 cap Folic Acid (Folic Acid) 1 mg PO DAILY [facility] Last Admin: 01/26/18 10:47 Dose: 1 mg Haloperidol Lactate (Haldol) 2 mg IM Q8H PRN PRN Reason: Agitation Ceftaroline Fosamil 600 mg/ (Sodium Chloride) 100 mls @ 100 mls/hr IVPB Q12 [facility]; Protocol Stop: 01/30/18 22:01 Last Admin: 01/26/18 22:18 Dose: 100 mls/hr Fluconazole 100 mg/ (Miscellaneous) 50 mls @ 100 mls/hr IVPB DAILY [facility]; Protocol Last Admin: 01/26/18 10:41 Dose: 100 mls/hr Sodium Chloride (Sodium Chloride 0.45%) 1,000 mls @ 75 mls/hr IV .[id number] [facility] Last Admin: 01/27/18 07:53 Dose: 75 mls/hr Levalbuterol HCl (Xopenex) 0.63 mg IH [id number] [facility] Last Admin: 01/27/18 08:17 Dose: 0.63 mg Lorazepam (Ativan) 1 mg IVP Q4H PRN PRN Reason: Symptoms of alcohol withdrawl Magnesium Oxide (Mag-Ox) 400 mg PO BID [facility] Last Admin: 01/26/18 18:01 Dose: 400 mg Multivitamins/Minerals (Therapeutic-M Tab) 1 tab PO DAILY [facility] Last Admin: 01/26/18 10:46 Dose: 1 tab Mupirocin (Bactroban Ointment) 0 gm TOP BID [facility] Last Admin: 01/26/18 18:02 Dose: 1 applic Nicotine (Nicoderm Cq) 1 patch TD DAILY [facility] Last Admin: 01/26/18 10:48 Dose: Not Given Ondansetron HCl (Zofran Inj) 4 mg IVP Q4H PRN PRN Reason: Nausea/Vomiting Pantoprazole Sodium (Protonix Ec Tab) 40 mg PO 0600 [facility] Last Admin: 01/27/18 07:53 Dose: 40 mg Thiamine HCl (Vitamin B1 Tab) 100 mg PO DAILY [facility] Last Admin: 01/26/18 10:47 Dose: 100 mg Trazodone HCl (Desyrel) 50 mg PO HS PRN PRN Reason: Insomnia Last Admin: 01/27/18 00:55 Dose: 50 mg - Labs Labs: 01/25/18 05:45 01/25/18 05:45 PT 14.9 SECONDS (9.4-12.5) H 01/26/18 06:45 INR 1.29 01/26/18 06:45 APTT 33.8 Seconds (25.1-36.5) 01/26/18 06:45 - Constitutional Appears: No Acute Distress - Head Exam Head Exam: ATRAUMATIC, NORMOCEPHALIC - Respiratory Exam Respiratory Exam: Clear to Ausculation Bilateral, NORMAL BREATHING PATTERN - Cardiovascular Exam Cardiovascular Exam: REGULAR RHYTHM, +S1, +S2 - GI/Abdominal Exam GI & Abdominal Exam: Soft, Normal Bowel Sounds. absent: Tenderness Assessment and Plan - Assessment and Plan (Free Text) Assessment: Pulmonary Embolism Cellulitis right hand HTN Peripheral Vascular Disease Plan: Patient is on anticoagulation for pulmonary embolism. continue antibiotics for cellulitis right hand as per infectious disease. Awaiting results of MRI to rule out osteomyelitis.
[2018-01-27] MEDS: FLUCONAZOLE IVPB SCH (09:39)
[2018-01-27] MEDS: PREMIXED IVPB SCH (09:39)
[2018-01-27] MEDS: NS 100 MG IVPB SCH (09:39)
[2018-01-27] MEDS: Magnesium Oxide 400 mg Tab UD PO SCH ×2 (09:39→17:10)
[2018-01-27] MEDS: Multivitamin With Minerals Tab PO SCH (09:40)
[2018-01-27] MEDS: Mupirocin 2% Ointment 15 GM TUBE TOP SCH ×2 (09:41→17:11)
[2018-01-27] MEDS: Ceftaroline 600 MG in Sodium Chloride 0.9% 100 ML IVPB SCH ×2 (10:47→21:25)
--- NOTE | 2018-01-27 21:29 | PN ---
DATE: 01/27/2018 SUBJECTIVE: The patient is in bed, in no acute distress. PHYSICAL EXAMINATION: VITAL SIGNS: On exam, temperature is 97, blood pressure is 120/80, respiratory rate of 20. HEENT: Examination of HEENT is unremarkable. NECK: Supple. LUNGS: Have decreased breath sounds. HEART: Normal S1, S2. ABDOMEN: Soft, nontender. LABORATORY DATA: Laboratory examination reveals a white count of 4.3, hemoglobin of 15, platelets of 100. Chemistries reveals a BUN of 9, creatinine of 0.8. Urinalysis is noted and immunology is noted and serology is noted. Microbiology reveals the right hand culture coag-negative staph and the patient had an MRI. Results are pending. ASSESSMENT AND PLAN: A 42-year-old female with right hand skin and skin structure, on Teflaro day #4. We will check on the MRI results. Review of orders reveals the patient to be on Teflaro. We will follow with you. Rodrigo Hernandez MD
--- NOTE | 2018-01-27 22:17 | CP.PCM.PN ---
Subjective - Date & Time of Evaluation Date of Evaluation: 01/26/18 Time of Evaluation: 19:00 - Subjective Subjective: No complaints, less pain in hand. Objective - Vital Signs/Intake and Output Vital Signs (last 24 hours): Temp Pulse Resp BP Pulse Ox 97.4 F L 73 20 147/108 H 96 01/27/18 21:28 01/27/18 21:28 01/27/18 21:28 01/27/18 21:28 01/27/18 21:28 - Medications Medications: Current Medications Acetaminophen (Tylenol 650 Mg Supp) 650 mg RC Q6H PRN PRN Reason: TEMP>=99.5F Acetaminophen (Tylenol 325mg Tab) 650 mg PO Q6H PRN PRN Reason: Headache Last Admin: 01/23/18 18:17 Dose: 650 mg Acetaminophen (Tylenol 650 Mg Supp) 650 mg RC Q6H PRN PRN Reason: Headache Apixaban (Eliquis) 10 mg PO BID [facility]; Protocol Last Admin: 01/27/18 17:10 Dose: 10 mg Aspirin (Ecotrin) 81 mg PO DAILY [facility] Last Admin: 01/27/18 09:40 Dose: 81 mg Chlordiazepoxide (Librium) 25 mg PO Q4H PRN PRN Reason: Withdrawl Clonidine HCl (Catapres) 0.1 mg PO Q4H PRN PRN Reason: Symptoms of alcohol withdrawl Docusate Sodium (Colace) 100 mg PO TID [facility] Last Admin: 01/27/18 17:10 Dose: 100 mg Ergocalciferol (Drisdol 50,000 Intl Units Cap) 1 cap PO Q7D [facility] Last Admin: 01/22/18 22:26 Dose: 1 cap Folic Acid (Folic Acid) 1 mg PO DAILY [facility] Last Admin: 01/27/18 09:40 Dose: 1 mg Haloperidol Lactate (Haldol) 2 mg IM Q8H PRN PRN Reason: Agitation Ceftaroline Fosamil 600 mg/ (Sodium Chloride) 100 mls @ 100 mls/hr IVPB Q12 [facility] ; Protocol Stop: 01/30/18 22:01 Last Admin: 01/27/18 21:25 Dose: 100 mls/hr Fluconazole 100 mg/ (Miscellaneous) 50 mls @ 100 mls/hr IVPB DAILY [facility]; Protocol Last Admin: 01/27/18 09:39 Dose: 100 mls/hr Sodium Chloride (Sodium Chloride 0.45%) 1,000 mls @ 75 mls/hr IV .[id number] [facility] Last Admin: 01/27/18 09:40 Dose: 75 mls/hr Levalbuterol HCl (Xopenex) 0.63 mg IH [id number] [facility] Last Admin: 01/27/18 20:06 Dose: 0.63 mg Lorazepam (Ativan) 1 mg IVP Q4H PRN PRN Reason: Symptoms of alcohol withdrawl Magnesium Oxide (Mag-Ox) 400 mg PO BID [facility] Last Admin: 01/27/18 17:10 Dose: 400 mg Multivitamins/Minerals (Therapeutic-M Tab) 1 tab PO DAILY [facility] Last Admin: 01/27/18 09:40 Dose: 1 tab Mupirocin (Bactroban Ointment) 0 gm TOP BID [facility] Last Admin: 01/27/18 17:11 Dose: 1 applic Nicotine (Nicoderm Cq) 1 patch TD DAILY [facility] Last Admin: 01/27/18 09:39 Dose: 1 patch Ondansetron HCl (Zofran Inj) 4 mg IVP Q4H PRN PRN Reason: Nausea/Vomiting Pantoprazole Sodium (Protonix Ec Tab) 40 mg PO 0600 [facility] Last Admin: 01/27/18 07:53 Dose: 40 mg Thiamine HCl (Vitamin B1 Tab) 100 mg PO DAILY [facility] Last Admin: 01/27/18 09:40 Dose: 100 mg Trazodone HCl (Desyrel) 50 mg PO HS PRN PRN Reason: Insomnia Last Admin: 01/27/18 21:25 Dose: 50 mg - Labs Labs: 01/25/18 05:45 01/25/18 05:45 PT 14.9 SECONDS (9.4-12.5) H 01/26/18 06:45 INR 1.29 01/26/18 06:45 APTT 33.8 Seconds (25.1-36.5) 01/26/18 06:45 - Head Exam Head Exam: ATRAUMATIC - Eye Exam Eye Exam: Normal appearance - ENT Exam ENT Exam: Mucous Membranes Dry - Respiratory Exam Respiratory Exam: NORMAL BREATHING PATTERN - Cardiovascular Exam Cardiovascular Exam: +S1, +S2 - GI/Abdominal Exam GI & Abdominal Exam: Normal Bowel Sounds Assessment and Plan (1) Pulmonary embolism Assessment & Plan: 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 to monitor Status: Acute (4) Coagulopathy Assessment & Plan: anticoagulation Status: Acute (5) Tobacco abuse Assessment & Plan: smoking cessation discussed at length Status: Acute
--- NOTE | 2018-01-27 22:20 | CP.PCM.PN ---
Subjective - Date & Time of Evaluation Date of Evaluation: 01/27/18 Time of Evaluation: 18:00 - Subjective Subjective: Less hand pain. Objective - Vital Signs/Intake and Output Vital Signs (last 24 hours): Temp Pulse Resp BP Pulse Ox 97.4 F L 73 20 147/108 H 96 01/27/18 21:28 01/27/18 21:28 01/27/18 21:28 01/27/18 21:28 01/27/18 21:28 - Medications Medications: Current Medications Acetaminophen (Tylenol 650 Mg Supp) 650 mg RC Q6H PRN PRN Reason: TEMP>=99.5F Acetaminophen (Tylenol 325mg Tab) 650 mg PO Q6H PRN PRN Reason: Headache Last Admin: 01/23/18 18:17 Dose: 650 mg Acetaminophen (Tylenol 650 Mg Supp) 650 mg RC Q6H PRN PRN Reason: Headache Apixaban (Eliquis) 10 mg PO BID [facility]; Protocol Last Admin: 01/27/18 17:10 Dose: 10 mg Aspirin (Ecotrin) 81 mg PO DAILY [facility] Last Admin: 01/27/18 09:40 Dose: 81 mg Chlordiazepoxide (Librium) 25 mg PO Q4H PRN PRN Reason: Withdrawl Clonidine HCl (Catapres) 0.1 mg PO Q4H PRN PRN Reason: Symptoms of alcohol withdrawl Docusate Sodium (Colace) 100 mg PO TID [facility] Last Admin: 01/27/18 17:10 Dose: 100 mg Ergocalciferol (Drisdol 50,000 Intl Units Cap) 1 cap PO Q7D [facility] Last Admin: 01/22/18 22:26 Dose: 1 cap Folic Acid (Folic Acid) 1 mg PO DAILY [facility] Last Admin: 01/27/18 09:40 Dose: 1 mg Haloperidol Lactate (Haldol) 2 mg IM Q8H PRN PRN Reason: Agitation Ceftaroline Fosamil 600 mg/ (Sodium Chloride) 100 mls @ 100 mls/hr IVPB Q12 [facility]; Protocol Stop: 01/30/18 22:01 Last Admin: 01/27/18 21:25 Dose: 100 mls/hr Fluconazole 100 mg/ (Miscellaneous) 50 mls @ 100 mls/hr IVPB DAILY [facility]; Protocol Last Admin: 10/13/18 09:39 Dose: 100 mls/hr Sodium Chloride (Sodium Chloride 0.45%) 1,000 mls @ 75 mls/hr IV .[id number] [facility] Last Admin: 01/27/18 09:40 Dose: 75 mls/hr Levalbuterol HCl (Xopenex) 0.63 mg IH [id number] [facility] Last Admin: 01/27/18 20:06 Dose: 0.63 mg Lorazepam (Ativan) 1 mg IVP Q4H PRN PRN Reason: Symptoms of alcohol withdrawl Magnesium Oxide (Mag-Ox) 400 mg PO BID [facility] Last Admin: 01/27/18 17:10 Dose: 400 mg Multivitamins/Minerals (Therapeutic-M Tab) 1 tab PO DAILY [facility] Last Admin: 01/27/18 09:40 Dose: 1 tab Mupirocin (Bactroban Ointment) 0 gm TOP BID [facility] Last Admin: 01/27/18 17:11 Dose: 1 applic Nicotine (Nicoderm Cq) 1 patch TD DAILY [facility] Last Admin: 01/27/18 09:39 Dose: 1 patch Ondansetron HCl (Zofran Inj) 4 mg IVP Q4H PRN PRN Reason: Nausea/Vomiting Pantoprazole Sodium (Protonix Ec Tab) 40 mg PO 0600 [facility] Last Admin: 01/27/18 07:53 Dose: 40 mg Thiamine HCl (Vitamin B1 Tab) 100 mg PO DAILY [facility] Last Admin: 01/27/18 09:40 Dose: 100 mg Trazodone HCl (Desyrel) 50 mg PO HS PRN PRN Reason: Insomnia Last Admin: 01/27/18 21:25 Dose: 50 mg - Labs Labs: 01/25/18 05:45 01/25/18 05:45 PT 14.9 SECONDS (9.4-12.5) H 01/26/18 06:45 INR 1.29 01/26/18 06:45 APTT 33.8 Seconds (25.1-36.5) 01/26/18 06:45 - Head Exam Head Exam: ATRAUMATIC - Eye Exam Eye Exam: Normal appearance - ENT Exam ENT Exam: Mucous Membranes Dry - Respiratory Exam Respiratory Exam: NORMAL BREATHING PATTERN - Cardiovascular Exam Cardiovascular Exam: +S1, +S2 - GI/Abdominal Exam GI & Abdominal Exam: Normal Bowel Sounds Assessment and Plan (1) Pulmonary embolism Assessment & Plan: 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 to monitor Status: Acute (4) Coagulopathy Assessment & Plan: anticoagulation Status: Acute (5) Tobacco abuse Assessment & Plan: smoking cessation discussed at length Status: Acute
[2018-01-28] MEDS: Levalbuterol 0.63 MG/3 ML Inhal Soln UD IH SCH ×3 (02:35→14:23)
[2018-01-28] MEDS: Pantoprazole 40 mg EC Tab PO SCH (05:29)
[2018-01-28 08:16] VITALS: BP 133/86; PULSE 70; TEMP 98; O2SAT 100
[2018-01-28] MEDS: Multivitamin With Minerals Tab PO SCH (11:08)
[2018-01-28] MEDS: Mupirocin 2% Ointment 15 GM TUBE TOP SCH (11:08)
[2018-01-28] MEDS: Magnesium Oxide 400 mg Tab UD PO SCH (11:09)
[2018-01-28] MEDS: Ceftaroline 600 MG in Sodium Chloride 0.9% 100 ML IVPB SCH (11:10)
[2018-01-28] MEDS: PREMIXED IVPB SCH (11:10)
[2018-01-28] MEDS: NS 100 MG IVPB SCH (11:10)
[2018-01-28] MEDS: FLUCONAZOLE IVPB SCH (11:10)
--- NOTE | 2018-01-28 22:08 | PN ---
DATE: 01/28/2018 SUBJECTIVE: The patient is seen earlier today in no acute distress, nontoxic. PHYSICAL EXAMINATION: VITAL SIGNS: Temperature is 98, blood pressure is 130/80, respiratory rate 20, heart rate of 88. HEENT: Unremarkable. NECK: Supple. LUNGS: Have decreased breath sounds. HEART: Normal S1, S2. ABDOMEN: Soft. LABORATORY EXAMINATION: Reveals a white count is 4.3, hemoglobin of 15. Chemistries are noted. Urinalysis is noted and toxicology is noted. Immunology is reviewed. Serology is noted and microbiology reveals a right hand coag-negative staph, sensitive to tetracycline. The patient's MRI is reported to be negative. ASSESSMENT AND PLAN: A 42-year-old female who was seen earlier this morning with right hand skin and skin structure with negative MRI. Discontinue Teflaro and use doxycycline 100 mg p.o. b.i.d. as discussed with PMD, although the official report has not been told by Dr. Burdne that the unofficial report is negative MRI. We will follow with you. Rodrigo Hernandez MD
--- NOTE | 2018-01-29 14:09 | MRI ---
Date of service: 01/25/2018 PROCEDURE: MRI of the right hand with and without contrast HISTORY: rule out osteomyelitis of right hand, R/O abscess COMPARISON: TECHNIQUE: MRI of the right hand was performed in multiple planes using multiple pulse sequences including postcontrast imaging. 15 cc of Omniscan were injected FINDINGS: There is no marrow edema or enhancement to suggest osteomyelitis. There is also no evidence of abscess. There is minimal subcutaneous edema around the thumb IMPRESSION: Negative study
--- NOTE | 2018-01-29 16:27 | DS ---
The patient was finally cleared by Infectious Disease and Hematology/Oncology for discharge. The patient was discharged home. The patient was seen in room 568, bed 1. The patient is sitting up in the bed. The patient's 14-system review was negative for chest pain; negative for shortness of breath; negative for nausea; negative for vomiting; negative for diarrhea; negative for headache; negative for blurred vision; negative for visual problems; negative for GI or problems; negative for bleeding; negative for hemoptysis, hematemesis or melena; negative for hematochezia. PHYSICAL EXAMINATION: VITAL SIGNS: T-max 98, pulse rate 70, blood pressure 133/86, respiration 20, O2 sat 100%. HEENT: Head examination; normocephalic, atraumatic. HEENT examination shows pink conjunctivae. Anicteric sclerae. No oropharyngeal lesion. No neck rigidity. CHEST: Kyphosis. LUNGS: Shows occasional rhonchi bilaterally, left more than the right. CARDIOVASCULAR: S1, S2. Regular rhythm. ABDOMEN: Soft. Positive bowel sound. No hepatosplenomegaly noted. No organomegaly noted. GENITALIA: Female. RECTAL: Deferred. EXTREMITY: Shows no pitting edema, no calf tenderness, no Homans' sign. MUSCULOSKELETAL: Shows a body mass index of 23. NEUROLOGICAL: Cranial nerves II through XII intact. Gait examination is independent. VASCULAR: Palpable pulses. Plantars are downward. DTRs are 2+. DIAGNOSTICS: None from January 28. All the diagnostics from the day of admission till the most latest diagnostics were reviewed. The patient is seen by Infectious Disease and Hematology/Oncology, their recommendations noted. FINAL IMPRESSION, PLAN AND DISCHARGE DIAGNOSES: 1. Unprovoked left lower lobe segmental branches pulmonary embolism. 2. Secondary polycythemia secondary to tobacco and nicotine abuse and dependence. 3. Relative thrombocytopenia. 4. Nicotine addiction and dependence. 5. History of hypertension, normotensive at present. 6. Leukopenia. 7. Erythrocytosis. 8. Relative thrombocytopenia. 9. Prediabetes with hemoglobin A1c of 6.2. 10. Hypovitaminosis D. 11. Elevated C-reactive protein of greater than 10. 12. Mild hypoalbuminemia and protein malnutrition. 13. Microscopic hematuria, pyuria, funguria. 14. Nicotine, alcohol and marijuana dependence and abuse. 15. Right hand palmar aspect coagulase-negative Staphylococcus aureus skin and superficial skin structure infection. PLAN: At this time, the patient is cleared by Hematology/Oncology, Infectious Disease. The patient is to be discharged home. DISCHARGE MEDICATIONS: The patient is to continue on Eliquis loading 10 mg twice a day for next five more days and then the patient is to start Eliquis 5 mg twice a day maintenance, Ecotrin 81 mg daily, doxycycline 100 mg twice a day for 7 days, Drisdol 50,000 units weekly, folic acid 1 mg daily, magnesium oxide 400 twice a day, Bactroban cream to the affected area of the right hand 3 times a day, nicotine patch 21 mg daily, Protonix 40 mg daily and thiamine 100 mg daily. The patient was discharged home with discharge followup with Dr. Burden within the coming week. Discharge medications as per updated ambulatory orders and the new scripts as dictated above. The patient was advised to stop smoking, alcohol and marijuana use. The patient is to continue on Eliquis 10 mg twice a day for 5 days, then start Eliquis 5 mg twice a day. During this hospitalization, the patient was extensively explained about the details of her medical condition, diagnosis, treatment plan, management plan and need for anticoagulation with Eliquis for at least 3-6 months or indefinite depending upon further Hematology/Oncology recommendation. In addition, the patient was daily counseled about cessation of smoking, alcohol and polysubstance abuse use. Time spent in the discharge process 45 minutes. Dictated and electronically signed, not read. Baljit Burden MD
== END 2018-01-28 16:42 | disposition home or self-care (01) | DRG 176 ==
LOC: ED 15:16 → ERH 19:00 → 2RNO 23:39 → 5RNO 01-25 11:48
PROVIDERS: ADMIT Internal Medicine; ATTEND Internal Medicine
PROC: 3E0F7GC Introduction of Other Therapeutic Substance into Respiratory Tract, Via Natural or Artificial Opening (ICD-10-PCS; principal; 2018-01-23)
DX: I26.99 Other pulmonary embolism without acute cor pulmonale (principal); D68.9 Coagulation defect, unspecified; D75.1 Secondary polycythemia; E11.51 Type 2 diabetes mellitus with diabetic peripheral angiopathy without gangrene; E11.65 Type 2 diabetes mellitus with hyperglycemia; L03.011 Cellulitis of right finger; E55.9 Vitamin D deficiency, unspecified; J44.9 Chronic obstructive pulmonary disease, unspecified; E78.00 Pure hypercholesterolemia, unspecified; I10 Essential (primary) hypertension; D69.6 Thrombocytopenia, unspecified; E78.5 Hyperlipidemia, unspecified; E83.42 Hypomagnesemia; F10.20 Alcohol dependence, uncomplicated; F12.20 Cannabis dependence, uncomplicated; N28.1 Cyst of kidney, acquired; G47.00 Insomnia, unspecified; F17.210 Nicotine dependence, cigarettes, uncomplicated; Z82.3 Family history of stroke

== ENCOUNTER 2018-05-17 07:36 | Outpatient (CLI) | payer OTHER | END 2018-05-17 07:37 | disposition home or self-care (01) | LOC: RAD 07:36 | DX: E11.51 Type 2 diabetes mellitus with diabetic peripheral angiopathy without gangrene (principal) ==

== ENCOUNTER 2018-05-31 08:01 | Day surgery (SDC) | payer OTHER ==
[2018-05-29 08:16] VITALS: BMI 22.6
[2018-05-31 09:10] LABS: BASO # 0.01 K/mm3 (0.0-2.0); BASO % 0.2 % (0.0-3.0); EOS # 0.1 (0.0-0.7); EOS % 0.9 % (1.5-5.0); HEMOGLOBIN 13.4 g/dL (12.0-16.0); LYMPH # 2.1 (1.2-3.4); MEAN CELL VOLUME 97.3 fl (80.0-105.0); MEAN CORPUSCULAR HEMOGLOBIN 32.6 pg (25.0-35.0); MEAN CORPUSCULAR HGB CONC 33.5 g/dl (31.0-37.0); MEAN PLATELET VOLUME 9.7 fl (7.0-11.0); MONO # 0.7 (0.1-0.6); MONO % 12.3 % (1.0-6.0); RBC 4.11 10^6/uL (3.5-6.1); RED CELL DISTRIBUTION WIDTH 13.7 % (11.5-14.5); WHITE BLOOD COUNT 5.8 10^3/uL (4.5-11.0)
[2018-05-31 09:18] LABS: BLOOD UREA NITROGEN 12 mg/dL (7-21); CALCIUM 9.4 mg/dL (8.4-10.5); GFR NON-AFRICAN AMERICAN > 60
[2018-05-31 09:19] LABS: INR 1.12; PARTIAL THROMBOPLASTIN TIME 28.2 Seconds (26.9-38.3); PROTHROMBIN TIME 12.6 SECONDS (9.4-12.5)
[2018-05-31] MEDS ORDERED: Lidocaine 2% Inj (20ml) ONE (11:03)
[2018-05-31] MEDS ORDERED: Nitroglycerin 50mg in D5W 50 MG/250 ML BOTTLE IV ONE (11:04)
[2018-05-31] MEDS ORDERED: Iodixanol 320 MG/ML 100 ML BOTTLE IV ONE ×3 (11:04→12:11)
[2018-05-31] MEDS ORDERED: Heparin 2,000 ML IV ONE (11:04)
[2018-05-31] MEDS ORDERED: Iodixanol 320 MG/ML 200 ML BOTTLE IV ONE (11:04)
[2018-05-31] MEDS ORDERED: Midazolam 2 MG/2 ML VIAL ONE ×2 (11:22→11:33)
[2018-05-31] MEDS ORDERED: Oxycodone/Acetaminophen 5/325 mg Tab PO PRN (12:43)
[2018-05-31] MEDS ORDERED: Sodium Chloride 0.45% 1,000 ML IV SCH (12:45)
[2018-05-31 13:43] VITALS: TEMP 97.8
[2018-05-31 14:14] VITALS: RESP 18
[2018-05-31 15:01] VITALS: O2SAT 98
[2018-05-31 16:14] VITALS: BP 150/78; PULSE 72
--- NOTE | 2018-06-01 10:25 | VASCULAR ---
Date of service: 05/31/2018 PROCEDURE: 1. Abdominal aortogram and bilateral lower extremity runoff with left selective views. 2. Proximal left SFA silver Hawk atherectomy and drug-eluting balloon angioplasty HISTORY: Severe peripheral vascular disease. Smoker. Previous aortic bifurcation stent graft placement. Rest pain and ischemia left 5th toe. PHYSICIAN(S): Richie Sanches M.D. TECHNIQUE: The relative risks and indications of the procedure were explained to the patient and consent obtained. The patient was hydrated prior to the procedure and the appropriate labs drawn. The patient was placed supine on the arteriogram table and the right groin prepped and draped in the usual sterile fashion. Conscious sedation and monitoring were provided throughout the procedure by a nurse. Via a right common femoral artery approach, a 5 Occitan sheath was placed in the right groin. Through the sheath and over a guidewire, a 5 Occitan flush catheter was placed in the abdominal aorta at the level of the renal arteries and a PA DSA abdominal aortogram performed. The catheter was pulled down to the aortic bifurcation and bilateral oblique DSA pelvic arteriograms performed. Overlapping bilateral lower extremity DSA arteriograms were obtained from the inguinal ligaments to the feet. A 0.035 angled Glidewire was advanced over the bifurcation and placed in the left profunda femoral artery.. A 7 Occitan 45 cm destination sheath was placed in the left external iliac artery. With some difficulty, the occluded origin of the left SFA was eventually cannulated and crossed. Distal imaging was performed. Despite multiple attempts with various catheters and guidewires, the chronic left popliteal artery and trifurcation occlusion could not be crossed. There are numerous collaterals present. A 0.014 guidewire was placed in the distal left SFA. Silver Hawk atherectomy of the proximal left SFA occlusion was performed with and LS catheter. Six passes were performed. Antegrade flow was established with a suboptimal result. The proximal left SFA was dilated with a 6 mm drug-eluting balloon. Next a 7 mm angioplasty balloon was utilized. A good angiographic result was obtained with brisk flow. No stent was placed. The sheath was removed hemostasis obtained with a Perclose device. The patient tolerated the procedure well. FINDINGS: There are single renal arteries bilaterally which are widely patent and normal in appearance. The nephrograms are symmetric in appearance. A bifurcated Endologic stent graft is noted in the distal abdominal aorta. The stent graft is widely patent with brisk flow. No restenosis is seen. The common and external iliac arteries widely patent. The internal iliac arteries are patent bilaterally. Right lower extremity: The right common femoral artery is patent. The right profunda femoral artery is patent. The right superficial femoral artery is patent and continuous without a radiographically significant stenosis. The right popliteal artery and trifurcation are patent. There is 3 vessel tibial runoff proximally. The right posterior tibial artery is atretic. The predominant supply to the right foot is the anterior tibial artery. The right peroneal artery is small Left lower extremity: Left common femoral artery is patent. The left profunda femoral artery is hypertrophied. There is a 5 cm occlusion of the proximal left SFA. The left SFA reconstitutes proximally. The left SFA is continuous. There is a chronic, well collateralized occlusion of the left popliteal artery and trifurcation. As mentioned previously, this could not be crossed in an antegrade direction. There is reconstitution of the proximal origin to the left anterior tibial artery. There is reconstitution of the mid left peroneal and posterior tibial arteries. IMPRESSION: 1.Successful silver Hawk atherectomy and drug-eluting balloon angioplasty of a 5 cm occlusion of the left SFA origin 2. 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 This could not be crossed in an antegrade direction. If persistent ischemia of the left foot is encountered, the patient needs to be evaluated for a left femoral-tibial bypass 3. Widely patent bifurcated aortic stent graft placed for occlusive disease
== END 2018-05-31 17:30 | disposition home or self-care (01) ==
LOC: SDSVAS 08:01
PROVIDERS: ATTEND Radiology Vascular & Interventional Radiology
DX: I70.222 Atherosclerosis of native arteries of extremities with rest pain, left leg (principal); F17.200 Nicotine dependence, unspecified, uncomplicated
CPT/HCPCS: 36415; 37225; 75625; 75716; 80048; 84703; 85025; 85610; 85730; 99152; C1714; C1725 ×4; C1760 ×2; C1769 ×5; C1887 ×2; C1894; J1644 ×2; J2250; J2405; J3010; J7030; Q9966; Q9967

== ENCOUNTER 2018-08-07 01:45 | Observation (INO) | payer OTHER ==
--- NOTE | 2018-08-07 02:14 | ED PDOC ---
Arrival/HPI - General Chief Complaint: Headache Time Seen by Provider: 08/07/18 01:48 Historian: Patient - History of Present Illness Narrative History of Present Illness (Text): 08/07/18 02:11 A 43 year old female, whose past medical history includes pulmonary embolism- currently on eliquis, hypertension, hyperlipidemia, diabetes peripheral vascular disease, aortoiliac disease, alcohol use, and s/p endovascular stent graft, pr esents to the emergency room complaining of onset of headache discomfort while at work earlier today with associated diaphoresis. Patient notes his blood pressure was elevated to be 160 systolic. Patient denies any chest pain, shortness of breath, abdominal pain, back pain, or any other complaints. PMD: Dr. Burden Time/Duration: Other (earlier today) Symptom Onset: Gradual Symptom Course: Unchanged Activities at Onset: Light Context: Home Past Medical History - Provider Review Nursing Documentation Reviewed: Yes - Past History Past History: No Previous - Infectious Disease Hx of Infectious Diseases: None - Tetanus Immunization Tetanus Immunization: Up to Date - Cardiac Hx Pacemaker: No Other/Comment: Stents - Pulmonary Hx Respiratory Disorders: No - Neurological Hx Paralysis: No - HEENT Hx HEENT Disorder: Yes (eyeglasses) - Renal Hx Renal Disorder: No - Endocrine/Metabolic Hx Diabetes Mellitus Type 2: (Hyperglycemia) - Hematological/Oncological Hx Blood Transfusions: No - Integumentary Other/Comment: right hand infection - Musculoskeletal/Rheumatological Hx Musculoskeletal Disorders: No - Gastrointestinal Hx Pancreatitis: Yes Other/Comment: gastritis - Genitourinary/Gynecological Hx Genitourinary Disorders: Yes (irregular periods) - Psychiatric Hx Emotional Abuse: No Hx Physical Abuse: No Hx Substance Use: No - Surgical History Hx Coronary Stent: Yes - Anesthesia Hx Anesthesia: No Hx Anesthesia Reactions: No Hx Malignant Hyperthermia: No - Suicidal Assessment Feels Threatened In Home Enviroment: No Family/Social History - Physician Review Nursing Documentation Reviewed: Yes Family/Social History: No Known Family HX Smoking Status: Light Smoker < 10 Cigarettes Daily Hx Alcohol Use: Yes (BEER ON OCCASION) Hx Substance Use: No Allergies/Home Meds Allergies/Adverse Reactions: Allergies latex Allergy (Severe, Verified 08/07/18 01:55) RASH shellfish derived Allergy (Severe, Verified 08/07/18 01:55) SHORTNESS OF BREATH Review of Systems - Physician Review All systems were reviewed & negative as marked: Yes - Review of Systems Respiratory: absent: SOB Cardiovascular: absent: Chest Pain Gastrointestinal: absent: Abdominal Pain Musculoskeletal: absent: Back Pain Neurological: Headache Endocrine: Diaphoresis Physical Exam Vital Signs Reviewed: Yes Vital Signs Temp Pulse Resp BP Pulse Ox 08/07/18 01:55 98.7 F 105 H 18 157/93 H 99 Temperature: Afebrile Blood Pressure: Hypertensive Pulse: Tachycardic Respiratory Rate: Normal Mental Status: Positive for: Alert and Oriented X 3 - Systems Exam Head: Present: Atraumatic, Normocephalic Pupils: Present: PERRL Extroacular Muscles: Present: EOMI Conjunctiva: Present: Normal Ears: Present: NORMAL TM Mouth: Present: Moist Mucous Membranes Neck: No: Meningeal Signs Respiratory/Chest: Present: Clear to Auscultation, Good Air Exchange. No: Respiratory Distress, Accessory Muscle Use Cardiovascular: Present: Regular Rate and Rhythm, Normal S1, S2. No: Murmurs Abdomen: No: Tenderness, Distention, Peritoneal Signs Back: Present: Normal Inspection Upper Extremity: Present: Normal Inspection. No: Cyanosis, Edema Lower Extremity: Present: Normal Inspection. No: Edema Neurological: Present: GCS=15, CN II-XII Intact, Speech Normal, Motor Func Grossly Intact, Normal Sensory Function Skin: Present: Warm, Dry, Normal Color. No: Rashes Psychiatric: Present: Alert, Oriented x 3, Normal Insight, Normal Concentration Medical Decision Making ED Course and Treatment: 08/07/18 02:12 Impression: 43 year old female presenting to the emergency room complaining of headache discomfort. Plan: -- Head CT without contrast -- EKG -- Labs -- CBC -- COAGs -- D DImer -- Chest X-ray -- Reassess and disposition Prior Visits: Notes and results from previous visits were reviewed. Progress Notes: 08/07/18 03:40 Chest X-ray reviewed by me, shows no acute processes. 08/07/18 04:00 EKG: Ordered, reviewed, and independently interpreted the EKG. Rate : 91 BPM Rhythm : NSR Interpretation : No acute changes. 08/07/18 05:25 CT scan of the head. CLINICAL HISTORY: Headache. TECHNIQUE: Multiple axial CT images were obtained through the brain without IV contrast material. COMMENTS: Bilateral chronic encephalomalacia in the posterior aspects of the parietal and occipital lobes. There is normal configuration of sella turcica. There are no intra or extra- axial collections. There is no mass effect or midline shift. There is no evidence of hematoma formation. No hydrocephalus is present. The ventricles are symmetrical. No abnormal calcifications are present. There is diffuse age-appropriate cerebellar and cerebral atrophy with proportionally dilated ventricles and cortical sulci. There are bilateral periventricular and subcortical white matter hypolucencies compatible with mild chronic microvascular disease. Otherwise, no significant focal abnormalities are seen either in the posterior fossa or supratentorial compartment. IMPRESSION: 1. Age-appropriate cerebellar and cerebral atrophy. 2. Mild chronic microvascular disease. 3. No evidence of acute intracranial pathology. Thank you for your kind referral of this patient. Electronically signed on Aug 07, 2018 5:17:02 AM EDT by: Carlos Rodrigez M.D., Certified by [facility], MSK, Neuroradiology 08/07/18 06:01 Case was discussed with PMD /patient to be admitted for observation further medical management/request that medical unit secretary be called to evaluate patient.vice president and portfolio manager was notified. - RAD Interpretation Radiology Orders: 08/07/18 02:02 CHEST PORTABLE [RAD] Stat 08/07/18 02:05 HEAD W/O CONTRAST [CT] Stat - Scribe Statement The provider has reviewed the documentation as recorded by the Scribe Allyn Duggan All medical record entries made by the Scribe were at my direction and personally dictated by me. I have reviewed the chart and agree that the record accurately reflects my personal performance of the history, physical exam, medical decision making, and the department course for this patient. I have also personally directed, reviewed, and agree with the discharge instructions and disposition. Disposition/Present on Arrival - Present on Arrival Any Indicators Present on Arrival: No History of DVT/PE: No History of Uncontrolled Diabetes: No Urinary Catheter: No History of Decub. Ulcer: No History Surgical Site Infection Following: None - Disposition Have Diagnosis and Disposition been Completed?: Yes Diagnosis: Headache, Uncontrolled hypertension Disposition: HOSPITALIZED Disposition Time: 06:04 Patient Problems: Current Active Problems Problem Status Onset Headache Acute Uncontrolled hypertension Acute Condition: STABLE Forms: [email or web address] (Bermudian)
[2018-08-07 02:44] LABS: HEMOGLOBIN 14.3 g/dL (12.0-16.0); MEAN CELL VOLUME 94.6 fl (80.0-105.0); MEAN CORPUSCULAR HEMOGLOBIN 32.1 pg (25.0-35.0); MEAN PLATELET VOLUME 9.5 fl (7.0-11.0); RBC 4.45 10^6/uL (3.5-6.1); RED CELL DISTRIBUTION WIDTH 12.2 % (11.5-14.5); WHITE BLOOD COUNT 5.3 10^3/uL (4.5-11.0)
[2018-08-07 03:11] LABS: TROPONIN I < 0.01 ng/mL
[2018-08-07 03:46] LABS: ALB/GLOB RATIO 1.3 (1.1-1.8); ALBUMIN 4.7 g/dL (3.0-4.8); ALT/SGPT 22 U/L (7-56); AST/SGOT 63 U/L (14-36); BLOOD UREA NITROGEN 10 mg/dL (7-21); CALCIUM 9.6 mg/dL (8.4-10.5); GFR NON-AFRICAN AMERICAN > 60
[2018-08-07 03:48] LABS: CK-MB 0.8 ng/mL (0.0-3.6)
[2018-08-07 04:00] LABS: PROTHROMBIN TIME 11.1 SECONDS (9.4-12.5)
--- NOTE | 2018-08-07 07:49 | RAD ---
Date of service: 08/07/2018 HISTORY: headache COMPARISON: Portable chest 11/24/2017. TECHNIQUE: 1 view obtained. FINDINGS: LUNGS: No active pulmonary disease. PLEURA: No significant pleural effusion identified, no pneumothorax apparent. CARDIOVASCULAR: No aortic atherosclerotic calcification present. Normal cardiac size. No pulmonary vascular congestion. OSSEOUS STRUCTURES: No significant abnormalities. VISUALIZED UPPER ABDOMEN: Normal. OTHER FINDINGS: None. IMPRESSION: No interval acute cardiopulmonary disease appreciated.
--- NOTE | 2018-08-07 08:03 | CT ---
Date of service: 08/07/2018 PROCEDURE: CT HEAD WITHOUT CONTRAST. HISTORY: headache COMPARISON: None available. TECHNIQUE: Axial computed tomography images were obtained through the head/brain without intravenous contrast. Radiation dose: Total exam DLP = 779.12 mGy-cm. This CT exam was performed using one or more of the following dose reduction techniques: Automated exposure control, adjustment of the mA and/or kV according to patient size, and/or use of iterative reconstruction technique. FINDINGS: HEMORRHAGE: No intracranial hemorrhage. BRAIN: No mass effect or edema. There is chronic encephalomalacia in the right parietal and left occipital lobes consistent with previous infarcts. VENTRICLES: Unremarkable. No hydrocephalus. CALVARIUM: Unremarkable. PARANASAL SINUSES: Unremarkable as visualized. No significant inflammatory changes. MASTOID AIR CELLS: Unremarkable as visualized. No inflammatory changes. OTHER FINDINGS: The report concurs with the preliminary [facility] report IMPRESSION: No acute intracranial finding
[2018-08-07 08:17] VITALS: O2SAT 100
--- NOTE | 2018-08-07 09:05 | CP.PCM.HP ---
History of Present Illness - History of Present Illness History of Present Illness: Nathan Dahl PGY2 IM H&P Note for DR. Burden cc: headache x1 day Ms. Le is a 43 year old female who is an employee of [employer] with a PMH of PAD s/p b/l LE stents, PE on Eliquis, DM2, recurrent pancreatitis w/ pseudocyst formation, and tobacco use who presented to ED with complaints of a bilateral temporal headache that started during her work shift earlier in the evening. The headache was non-radiating and the patient denies any visual changes, periods of confusion, dizziness, chest pain or abdominal pain, n/v/d. Patient states that she measured her BP which was elevated in the 160's/90's and she went to ED for evaluation. Headache improved in ED. 12-pt ROS was reviewed and is otherwise unremarkable. 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[place]; heavy tobacco use history, now 1/2 pk/day; o ccasional beer drinker; occasional marijuana user FHx: Mom (DM2, heart disease, PAD); father (heart disease, cancers?) Present on Admission - Present on Admission Any Indicators Present on Admission: No Review of Systems - Review of Systems All systems: reviewed and no additional remarkable complaints except (as per HPI) Past Patient History - Infectious Disease Hx of Infectious Diseases: None - Tetanus Immunizations Tetanus Immunization: Up to Date - Past Medical History & Family History Past Medical History?: Yes - Past Social History Smoking Status: Light Smoker < 10 Cigarettes Daily - CARDIAC Hx Pacemaker: No Other/Comment: Stents - PULMONARY Hx Respiratory Disorders: No - NEUROLOGICAL Hx Paralysis: No - HEENT Hx HEENT Problems: Yes (eyeglasses) - RENAL Hx Chronic Kidney Disease: No - ENDOCRINE/METABOLIC Hx Diabetes Mellitus Type 2: (Hyperglycemia) - HEMATOLOGICAL/ONCOLOGICAL Hx Blood Transfusions: No - INTEGUMENTARY Other/Comment: right hand infection - MUSCULOSKELETAL/RHEUMATOLOGICAL Hx Musculoskeletal Disorders: No - GASTROINTESTINAL Hx Pancreatitis: Yes Other/Comment: gastritis - GENITOURINARY/GYNECOLOGICAL Hx Genitourinary Disorders: Yes (irregular periods) - PSYCHIATRIC Hx Emotional Abuse: No Hx Physical Abuse: No Hx Substance Use: No - SURGICAL HISTORY Hx Coronary Stent: Yes - ANESTHESIA Hx Anesthesia: No Hx Anesthesia Reactions: No Hx Malignant Hyperthermia: No Meds Allergies/Adverse Reactions: Allergies Allergy/AdvReac Type Severity Reaction Status Date / Time latex Allergy Severe RASH Verified 08/07/18 01:55 shellfish derived Allergy Severe SHORTNESS Verified 08/07/18 01:55 OF BREATH Physical Exam - Constitutional Appears: Well, Non-toxic, No Acute Distress - Head Exam Head Exam: ATRAUMATIC, NORMAL INSPECTION - Eye Exam Eye Exam: Normal appearance, PERRL - ENT Exam ENT Exam: Mucous Membranes Moist, Normal Exam - Neck Exam Neck exam: Positive for: Full Rom, Normal Inspection - Respiratory Exam Respiratory Exam: NORMAL BREATHING PATTERN. absent: Wheezes, Respiratory Distress - Cardiovascular Exam Cardiovascular Exam: RRR, +S1, +S2 - GI/Abdominal Exam GI & Abdominal Exam: Soft. absent: Distended, Tenderness - Extremities Exam Extremities exam: Positive for: normal inspection. Negative for: pedal edema - Back Exam Back exam: FULL ROM, NORMAL INSPECTION - Neurological Exam Neurological exam: Alert, CN II-XII Intact - Skin Skin Exam: Normal Color, Warm Results - Vital Signs Recent Vital Signs: Last Vital Signs Temp 98.7 F 08/07/18 08:16 Pulse 107 H 08/07/18 08:36 Resp 20 08/07/18 08:16 BP 138/80 08/07/18 08:36 Pulse Ox 100 08/07/18 08:16 - Labs Result Diagrams: 08/07/18 02:15 08/07/18 02:15 Labs: Laboratory Results - last 24 hr 08/07/18 08/07/18 08/07/18 02:15 02:15 03:00 WBC 5.3 RBC 4.45 Hgb 14.3 Hct 42.1 MCV 94.6 MCH 32.1 MCHC 34.0 RDW 12.2 Plt Count 196 MPV 9.5 PT 11.1 INR 1.00 APTT 26.0 L D-Dimer, Quantitative 443 H Sodium 134 Potassium 4.5 Chloride 104 Carbon Dioxide 23 Anion Gap 12 BUN 10 Creatinine 1.0 Est GFR ( Amer) > 60 Est GFR (Non-Af Amer) > 60 Random Glucose 130 H Calcium 9.6 Total Bilirubin 0.7 AST 63 H D ALT 22 Alkaline Phosphatase 89 Lactate Dehydrogenase 611 Total Creatine Kinase 259 H CK-MB (CK-2) 0.8 CK-MB (CK-2) % Cancelled Troponin I < 0.01 D Total Protein 8.5 H Albumin 4.7 Globulin 3.8 Albumin/Globulin Ratio 1.3 Assessment & Plan - Assessment and Plan (Free Text) Assessment: 43 year old female who is an employee of [employer] with a PMH of PAD s/p b/l LE stents, PE on Eliquis, DM2, recurrent pancreatitis w/ pseudocyst formation, and tobacco use who is admitted for hypertension and associated headache. Plan: - cont ASA home dose - cont Eliquis home dose - CT Head reviewed; will order MRI - will order baseline thyroid, A1c and vit D labs - monitor on med-surg - V/Q scan ordered to evaluate for PE - further recs per Dr. Burden Case was reviewed with DR. Burden
[2018-08-07 10:43] VITALS: BMI 25.0
[2018-08-07] MEDS ORDERED: Sodium Chloride 0.45% 1,000 ML IV SCH (11:00)
--- NOTE | 2018-08-07 11:46 | CARD ---
APPROVED REPORT Date of service: 08/07/2018 EKG Measurement Heart [id number] <Conclusion> Normal sinus rhythm Possible Left atrial enlargement Borderline ECG
[2018-08-07] MEDS ORDERED: Iohexol 350 MG/100 ML VIAL ONE (12:35)
[2018-08-07] MEDS: Levalbuterol 0.63 MG/3 ML Inhal Soln UD IH SCH ×2 (16:04→20:51)
--- NOTE | 2018-08-07 16:10 | NM ---
Date of service: 08/07/2018 COMPARISON: 08/07/2018 TECHNIQUE: 30.0 mCi technetium 99-m DTPA aerosol. 3.6 mCI technetium 99-m MAA administered intravenously. FINDINGS: VENTILATION COMPONENT: Normal. PERFUSION COMPONENT: Normal. IMPRESSION: Lowprobability ventilation perfusion scan for pulmonary embolism.
[2018-08-07 16:46] LABS: HDL CHOLESTEROL 81 mg/dL (29-60)
[2018-08-07 16:57] LABS: LDL CHOLESTEROL 65 mg/dL (0-129)
[2018-08-07 17:03] LABS: FREE T4 1.19 ng/dL (0.78-2.19)
[2018-08-07] MEDS ORDERED: DiphenhydrAMINE 50 mg/ml Inj IVP STA (22:39)
--- NOTE | 2018-08-08 | HP ---
DATE OF EXAM: 08/07/2018 HISTORY OF PRESENT ILLNESS: The patient is a 43-year-old female who presented to the emergency room with severe headache and uncontrolled hypertension. 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 The patient was seen and evaluated by the ER physician, Dr. Alexis for the patient's symptoms. Underwent ER evaluation. The patient's blood pressure was found to be elevated. REVIEW OF SYSTEMS: A 14-system review was positive for headache and elevated blood pressure. CODE STATUS: Full code. LIVING WILL ADVANCE DIRECTIVE: None. ALLERGIES: TO LATEX AND SHELLFISH. DATE OF : 1975. SOCIAL HISTORY: Positive for smoking. Positive for alcohol use. Positive for recreational drug use. HOME MEDICATIONS: Aspirin 81 mg and Eliquis 5 mg twice a day. PAST MEDICAL AND SURGICAL HISTORY: History of peripheral vascular disease, history of smoking and alcohol use in the past. FAMILY HISTORY: Positive for hypertension and heart problem. 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 The patient's past medical history is significant for hypertension, history of peripheral vascular disease, history of angioplasty and stent placement, history of atherectomy of the right lower extremity peripheral vascular disease, history of anorexia, history of recurrent pancreatitis, history of alcoholic pancreatitis, history of alcohol use and nicotine dependence, history of left foot MRSA infection, history of erythrocytosis, history of questionable iron-deficiency, history of hypovitaminosis D, history of prediabetes, history of elevated CA 19-9, history of elevated CEA antigen level, history of atelectasis, history of pancreatitis and pancreatic pseudocyst, history of peripheral vascular disease with endovascular stent graft extending from infrarenal abdominal aorta inferior to both iliac arteries, history of thickened urinary bladder, history of hepatomegaly, history of severe stenosis of the aortic bifurcation involving distal aorta and common iliac, history of left distal superficial femoral artery occlusion at the junction of the popliteal, history of severe stenosis of the distal aorta and proximal common iliac arteries bilaterally with occlusion of the distal left superficial femoral artery at the junction of the popliteal artery, history of aortoiliac disease, history of left superficial femoral artery stenosis, history of gastritis, history of abdominal aortic aneurysm bifurcated stent graft placement, history of noncompliance, history of poor compliance, history of hypertension, history of polycythemia, history of Eliquis treatment with history of noncompliance, history of left leg surgery surgery, history of tachycardia, history of hyperlipidemia, history of internal-external hemorrhoids, history of colonic spasm, history of descending colon congestive mucosa, history of hiatal hernia, history of duodenopathy, history of duodenal erosion, history of prepyloric gastric erythema, history of antral erythema, history of recent angioplasty and atherectomy of the patient's lower extremity peripheral artery, history of left lower lobe segmental pulmonary embolism, history of diabetes prediabetes, history of peripheral vascular disease, history of aortoiliac disease, history of endovascular stent placement, history of nicotine and alcohol dependence, history of erythrocytosis, history of noncompliance and poor compliance, history of hyperglycemia, history of unprovoked left lower lobe segmental branches pulmonary embolism, 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 tobacco use, history of relative thrombocytopenia, history of leukopenia and erythrocytosis, history of hypovitaminosis D, history of microscopic hematuria, pyuria and funguria, history of right hand palmar aspect coagulase-negative Staphylococcus aureus skin structure infection, history of bilateral renal cysts, history of left ventricular hypertrophy, history of mild tricuspid regurgitation, history of hypomagnesemia, history of active marijuana and cannabinoid use with urine drug screen positive for benzodiazepine and cannabinoids, history of peripheral vascular disease, history of a recent atherectomy of the patient's lower extremity peripheral vascular disease, history of pancreatitis, history of indeterminate troponin. The patient's past medical history is also significant for a history of noncompliance with medication and doctor followup, history of recent abdominal aortogram and bilateral lower extremity runoff, history of proximal left superficial femoral artery atherectomy and drug-eluting balloon angioplasty. The patient's past medical history is significant for severe vascular disease. PHYSICAL EXAMINATION VITAL SIGNS: Height is 5 feet 6 inches. Weight is 165 pounds. BMI is 26.6. T-max 98.7, heart rate 91 to 107, blood pressure 157/93 to 138/80, O2 respirations 20, and O2 sat 100%. GENERAL: The patient was seen lying in the bed. The patient is alert, awake, responsive. HEENT: The patient's head examination; normocephalic, atraumatic. HEENT examination shows pinkish pale conjunctivae. Anicteric sclerae. No oropharyngeal lesion. NECK: No neck rigidity. CHEST: Kyphosis. LUNGS: Shows occasional rhonchi. CARDIOVASCULAR: S1, S2, regular rhythm. Questionable soft systolic murmur left sternal border, right second intercostal space, left second intercostal space. ABDOMEN: Soft, positive bowel sounds. GENITALIA: Female. RECTAL: Deferred. EXTREMITIES: Shows no pitting edema, no calf tenderness, no Homans' sign. Positive palpable pulses of the lower extremity. MUSCULOSKELETAL: Examination as per the body mass index of 26.6. NEUROLOGIC: The patient is alert, awake, responsive, is able to move upper and lower extremity without assistance. Gait examination is not tested. VASCULAR: Palpable pulses. PSYCHIATRIC: Negative for anxiety or depression. Negative for auditory or visual hallucinations. Negative for suicidal or homicidal ideation. DIAGNOSTICS: WBC 5.3, hemoglobin/hematocrit 14.3, 42.1, platelet 196. D-dimer 443. Sodium 134, potassium 4.5, chloride 104, CO2 of 23, BUN 10, creatinine 1, glucose 130, CPK 259, troponin 0.01. CT of the head shows right parietal left occipital encephalomalacia consistent with old infarct. EKG shows normal sinus rhythm. The patient was evaluated in the emergency room by the ER physician. The patient was placed on observation. The patient was admitted to observation for further evaluation and blood pressure control. The patient is started on aspirin 81 mg, Eliquis 5 mg twice a day, Lopressor 25 mg twice a day. The patient's further diagnostic tests have been ordered. IMPRESSION AND PLAN 1. Severe headache, etiology undetermined. 2. Uncontrolled hypertension. 3. Tachycardia. 4. Headache with diaphoresis, etiology undetermined. 5. Elevated D-dimer. 6. 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 7. History of left lower lobe unprovoked pulmonary embolism. 8. History of peripheral vascular disease status post atherectomy and angioplasty. 9. History of abdominal aortic endovascular graft placement. 10. History of abdominal aortic aneurysm. 11. History of nicotine and alcohol abuse and dependence. 12. History of marijuana use. 13. History of hyperlipidemia. 14. History of prediabetes. PLAN: At this time, the patient has been placed on observation. As per the ER physician, the patient will be ordered lipid panel. The patient will be ordered hemoglobin A1c and a thyroid panel. The patient will be resumed on beta-blockers. The patient will be resumed on aspirin. The patient will be resumed on Eliquis. The patient has been put on heart-healthy diet. At present, the patient's further management is dependent upon the patient's clinical condition, hemodynamic status and as per the patient's response to therapeutic intervention as per the patient's diagnostic test results. The patient will be ordered a VQ scan for elevated D-dimer because the patient cannot undergo a CTA angioplasty because of the SHELLFISH ALLERGIES. At present, the patient was advised counseling about compliance with medications, diet and physician followup. The patient has been extensively explained about her medical condition. Once the patient's subjective, objective data is stabilized, the patient will be considered for discharge soon. The patient will be advised to resume all medications as per the discharge prescriptions and instruction. At present, the patient is awaiting for all the diagnostic lab data and the VQ scan and stabilization of patient's subjective and objective status. Dictated and electronically signed, not read. Baljit Burden MD
[2018-08-08] MEDS: Levalbuterol 0.63 MG/3 ML Inhal Soln UD IH SCH (07:56)
[2018-08-08 08:04] VITALS: BP 150/64; PULSE 71; RESP 18; TEMP 98
[2018-08-08 09:01] LABS: FRUCTOSAMINE 317 umol/L (190-270)
--- NOTE | 2018-08-08 09:40 | MRI ---
Date of service: 08/07/2018 PROCEDURE: MRI BRAIN WITHOUT CONTRAST HISTORY: r/o CVA COMPARISON: CT from the same day TECHNIQUE: Multiplanar, multisequence MR images of the brain were obtained without intravenous contrast enhancement. FINDINGS: HEMORRHAGE: None DWI: No evidence of an acute or early subacute infarction. BRAIN PARENCHYMA: No mass effect or edema. Encephalomalacia is seen in the right parietal lobe and left occipital lobe VENTRICLES: Unremarkable. No hydrocephalus. CRANIUM: Unremarkable. ORBITS: Grossly unremarkable. PARANASAL SINUSES/MASTOIDS: Clear VASCULAR SYSTEM: Skull base flow voids intact. OTHER FINDINGS: The preliminary [facility] report interpreted the findings as posterior reversible encephalopathy syndrome. I disagree with this interpretation. These findings appeared to simply represent chronic encephalomalacia. IMPRESSION: Encephalomalacia in the right parietal lobe and left occipital lobe. No acute intracranial findings
--- NOTE | 2018-08-09 09:43 | DS ---
HISTORY OF PRESENT ILLNESS: The patient is seen in room 573 bed 3. The patient is sitting up in the bed. The patient is comfortable, alert, awake, responsive. Denies any headache. The patient is seen sitting up in the bed, on the phone. Overnight nurse's notes were reviewed. No adverse events were documented, notified or called for. PHYSICAL EXAMINATION VITAL SIGNS: T-max 98.3, heart rate 71, blood pressure 166/84, 150/64, 134/78 and 138/80, respirations 18 to 20 and O2 sat is 100%. HEENT: Head examination normocephalic and atraumatic. HEENT examination shows pinkish pale conjunctivae. Anicteric sclerae. No oropharyngeal lesion. No neck rigidity. CHEST: Kyphosis. LUNGS: Shows no audible crackle, rales or wheezing. CARDIOVASCULAR: Shows S1 and S2, regular rhythm. ABDOMEN: Soft, positive bowel sound. No palpable hepatosplenomegaly. GENITALIA: Female. RECTAL: Examination is deferred. EXTREMITIES: Shows no pitting edema, no calf tenderness, no Homans' sign. MUSCULOSKELETAL: Shows a body mass index 25. NEUROLOGIC: The patient is alert, awake and responsive. He is oriented x3. Cranial nerves II-XII intact. Gait examination is not tested. VASCULAR: Palpable pulses. DIAGNOSTICS: CBC is within normal limit. D-dimer was 443. Hemoglobin A1c 7.2. Fructosamine 317. Cholesterol 171, LDL 65 and HDL 81. Vitamin D 25. Hydroxy 13.8. TSH 1.5. T4 of 6.4. Urine negative. HIV pending. MRI of the brain reviewed. EKG reviewed, shows sinus rhythm. FINAL IMPRESSION AND PLAN AND DISCHARGE DIAGNOSES: 1. Uncontrolled hypertension with severe headache. 2. Possible posterior reversible encephalopathy syndrome with prominent areas of hyperintensity within bilateral occipital lobe and right and left frontal gyrus and right and left frontal and parietal lobe, consistent with posterior reversible encephalopathy syndrome. 3. Right parietal and left occipital lobe encephalomalacia. 4. Headache with diaphoresis with uncontrolled hypertension. 5. History of hypertension. 6. Elevated D-dimer. 7. Noninsulin-requiring diabetes mellitus with hemoglobin A1c of 7.2. 8. 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 9. Hypovitaminosis D. 10. History of nicotine, alcohol and polysubstance use. 11. 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 12. Hypertension. 13. History of pulmonary embolism. 14. History of noncompliance. PLAN: At this time, the patient has been cleared for discharge. DISCHARGE MEDICATIONS: Eliquis 5 mg twice a day, Ecotrin 81 mg daily, Lipitor 10 mg daily, Drisdol 50,000 units weekly, metformin 500 mg daily, Lopressor 25 mg twice a day, nicotine patch 21 mg daily. The patient has been discharged home with discharge followup with Dr. Burden, next week. The patient's discharge medications as per updated ambulatory orders and as per the prescription. DISCHARGE RESTRICTION: No alcohol. No smoking. No driving. During this hospitalization, the patient was extensively explained about the details of her medical condition, diagnoses, test results, limitations, restriction, diet, activity, cessation of smoking, alcohol, polysubstance use and drug use was advised which the patient acknowledged and understand. Time spent in the discharge process 45 minutes. Dictated and electronically signed, not read. Signing off the Baljit Burden MD Baljit Burden MD
[2018-08-10 10:58] LABS: GLYCOMARK(R) 8.7 mcg/mL (7.5-28.4)
== END 2018-08-08 11:44 | disposition home or self-care (01) ==
LOC: ED 01:45 → ERH 05:54 → 5RSO 06:54
PROVIDERS: ADMIT Internal Medicine; ATTEND Internal Medicine
DX: I10 Essential (primary) hypertension (principal); R51 Headache; K86.3 Pseudocyst of pancreas; E11.51 Type 2 diabetes mellitus with diabetic peripheral angiopathy without gangrene; E78.5 Hyperlipidemia, unspecified; F12.90 Cannabis use, unspecified, uncomplicated; F17.200 Nicotine dependence, unspecified, uncomplicated; G93.89 Other specified disorders of brain; Z86.711 Personal history of pulmonary embolism; Z95.820 Peripheral vascular angioplasty status with implants and grafts; Z79.82 Long term (current) use of aspirin; Z79.01 Long term (current) use of anticoagulants; Z91.14 Patient's other noncompliance with medication regimen; Z91.19 Patient's noncompliance with other medical treatment and regimen; Z79.84 Long term (current) use of oral hypoglycemic drugs
CPT/HCPCS: 36415; 70450; 70551; 71045; 78582; 80053; 80061; 82306; 82550; 82553; 82985; 83036; 83615; 84378; 84439; 84443; 84484; 84703; 85027; 85378; 85610; 85730; 87389; 93005; 94640; 96374; 99285; G0378; J1200; J7030